=== PATIENT | male | born 1975 | race Caucasian/White ===

== ENCOUNTER → 2019-02-02 | Outpatient (CLI) | payer BC ==
--- NOTE | 2019-02-02 12:06 | CT ---
EXAMINATION TYPE: CT cervical spine wo con DATE OF EXAM: 02/02/2019 COMPARISON: NONE HISTORY: Neck and shoulder pain for 6+ months CT DLP: 690.1 mGycm. Automated Exposure Control for Dose Reduction was Utilized. TECHNIQUE: CT scan of the cervical spine is obtained without contrast, axial images are obtained, sa gittal and coronal reformatted images are also reviewed. FINDINGS: Cervical spine is visualized in its entirety from C1 through upper thoracic levels, demonst rates satisfactory alignment without evidence of acute fracture or dislocation. Small posterior disc osteophyte complexes are seen at C5-C6 and C6-C7. Disc bulge is present at C2-C3. Mild neural forami nal narrowing bilaterally at C3-C4 and C4-C5 secondary to uncovertebral hypertrophy. At C5-C6 there i s severe bilateral neural foraminal narrowing and mild spinal canal stenosis secondary to at least di sc bulge, posterior disc osteophyte complex, uncovertebral hypertrophy and facet arthropathy. Mild le ft neural foraminal narrowing at C6-C7 secondary to uncovertebral hypertrophy. Small broad-based disc bulge and possible central disc herniation creating mild spinal canal stenosis. Prevertebral soft ti ssue appears within normal limits. The C1-C2 articulation is within normal limits on the coronal nikki ges. Visualized lung apices are clear. IMPRESSION: 1. No acute fracture or malalignment evident in the cervical spine. 2. Multilevel degenerative disc disease of the cervical spine creating severe bilateral neural forami nal narrowing at C5-C6 and mild spinal canal stenosis at C5-C6 and C6-C7. Possible disc herniations a t these levels that would be better evaluated with MRI.
== END ==
LOC: RADCTMAIN 11:22
PROVIDERS: ATTEND General Practice
DX: M48.02 Spinal stenosis, cervical region (principal); M50.122 Cervical disc disorder at C5-C6 level with radiculopathy
CPT/HCPCS: 72125

== ENCOUNTER 2019-05-11 11:45 | Observation (INO) | payer BC ==
[2019-05-11] MEDS ORDERED: SODIUM CHLORIDE 0.9% 1,000 ML IV STA (12:25)
[2019-05-11] MEDS ORDERED: METOCLOPRAMIDE 5 MG/ML 2 ML VIAL IVP STA (12:25)
[2019-05-11] MEDS ORDERED: HYDROmorphone 1 MG/ML 1 ML SYRINGE IVP STA (12:26)
--- NOTE | 2019-05-11 12:29 | ED ---
General Adult HPI - General Chief complaint: Headache Stated complaint: Headache/Vomiting Time Seen by Provider: 05/11/19 11:51 Source: patient, RN/MD, RN notes reviewed Mode of arrival: ambulatory Limitations: no limitations - History of Present Illness Initial comments: Patient is a pleasant 43-year-old male presenting to the emergency Department with complaints of headache. Onset Of headaches was 2 and half to 3 weeks ago. Patient has been to the emergency department twice and had negative head CTs. Patient is also seen Dr. Coe. Patient has had Compazine and sumatriptan an occipital block. Patient still has symptoms. Dr. Coe did call and would like patient admitted with neurology and anesthesia consult. Patient does have history of previous shunts. Patient does have associated nausea and vomiting. Patient is tolerating oral intake at times and not at others. Patient has had weight loss secondary to that. Patient has had 2 previous headaches within the last year prior to the past few weeks. - Related Data Allergies Allergy/AdvReac Type Severity Reaction Status Date / Time No Known Allergies Allergy Verified 05/11/19 11:50 Review of Systems ROS Statement: Those systems with pertinent positive or pertinent negative responses have been documented in the HPI. ROS Other: All systems not noted in ROS Statement are negative. Constitutional: Denies: fever Eyes: Denies: eye pain ENT: Denies: ear pain Respiratory: Denies: cough Cardiovascular: Denies: chest pain Endocrine: Denies: fatigue Gastrointestinal: Reports: nausea, vomiting. Denies: abdominal pain Genitourinary: Denies: dysuria Musculoskeletal: Denies: back pain Skin: Denies: rash Neurological: Reports: headache. Denies: weakness, numbness, paresthesias, confusion Past Medical History History of Any Multi-Drug Resistant Organisms: None Reported Additional Past Surgical History / Comment(s): brain shunt Past Psychological History: No Psychological Hx Reported Smoking Status: Never smoker Past Alcohol Use History: None Reported Past Drug Use History: None Reported General Exam Limitations: no limitations General appearance: alert, in no apparent distress Head exam: Present: normocephalic Eye exam: Present: normal appearance, PERRL, EOMI. Absent: nystagmus ENT exam: Present: normal oropharynx Neck exam: Present: normal inspection Respiratory exam: Present: normal lung sounds bilaterally Cardiovascular Exam: Present: regular rate, normal rhythm GI/Abdominal exam: Present: soft. Absent: tenderness Extremities exam: Present: normal inspection Neurological exam: Present: alert, oriented X3, CN II-XII intact. Absent: motor sensory deficit Expanded Neurological exam: Present: protecting the airway Speech: Present: fluid speech Cranial nerves: EOM's Intact: Normal Cerebellar function: Finger to Nose: Normal Sensory exam: Upper Extremity Light Touch: Normal, Lower Extremity Light Touch: Normal Motor strength exam: RUE: 5, LUE: 5, RLE: 5, LLE: 5 Eye Response: (4) open spontaneously Motor Response: (6) obeys commands Verbal Response: (5) oriented Psychiatric exam: Present: normal affect, normal mood Skin exam: Present: normal color Course Vital Signs 05/11/19 11:48 Temperature 97.9 F Pulse Rate 105 H Respiratory 18 Rate Blood Pressure 148/97 O2 Sat by Pulse 99 Oximetry Medical Decision Making - Medical Decision Making Patient reevaluated and is somewhat improved following medications. Case discussed with julio Koo with [facility], who will admit for hospital call. - Lab Data Result diagrams: 05/11/19 12:47 05/11/19 13:29 Lab Results 05/11/19 05/11/19 05/11/19 Range/Units 12:47 12:47 13:29 WBC 11.7 H (3.8-10.6) k/uL RBC 5.92 H (4.30-5.90) m/uL Hgb 17.4 (13.0-17.5) gm/dL Hct 49.2 (39.0-53.0) % MCV 83.1 (80.0-100.0) fL MCH 29.4 (25.0-35.0) pg MCHC 35.3 (31.0-37.0) g/dL RDW 12.0 (11.5-15.5) % Plt Count 252 (150-450) k/uL Neutrophils % 77 % Lymphocytes % 16 % Monocytes % 6 % Eosinophils % 1 % Basophils % 0 % Neutrophils # 9.0 H (1.3-7.7) k/uL Lymphocytes # 1.8 (1.0-4.8) k/uL Monocytes # 0.7 (0-1.0) k/uL Eosinophils # 0.1 (0-0.7) k/uL Basophils # 0.1 (0-0.2) k/uL PT 10.8 (9.0-12.0) sec INR 1.1 (<1.2) APTT 24.9 (22.0-30.0) sec Sodium 136 L (137-145) mmol/L Potassium 4.0 (3.5-5.1) mmol/L Chloride 96 L (98-107) mmol/L Carbon Dioxide 27 (22-30) mmol/L Anion Gap 13 mmol/L BUN 17 (9-20) mg/dL Creatinine 1.00 (0.66-1.25) mg/dL Est GFR (CKD-EPI)AfAm >90 (>60 ml/min/1.73 sqM) Est GFR (CKD-EPI)NonAf >90 (>60 ml/min/1.73 sqM) Glucose 98 (74-99) mg/dL Calcium 9.8 (8.4-10.2) mg/dL - Radiology Data Radiology results: report reviewed (CTA without significant stenosis or aneurysm or dissection. Left temporal craniotomy defect with surgical catheter possibly arachnoid cyst. No hemorrhage.) Disposition Clinical Impression: Headache Disposition: ADMITTED IP TO THIS HOSP Is patient prescribed a controlled substance at d/c from ED?: No Referrals: None,Stated [Primary Care Provider] - 1-2 days Decision Time: 14:18
[2019-05-11 13:05] LABS: Basophils # (A) 0.1 k/uL (0-0.2); Basophils % (A) 0 %; Eosinophils # (A) 0.1 k/uL (0-0.7); Eosinophils % (A) 1 %; HCT 49.2 % (39.0-53.0); HGB 17.4 gm/dL (13.0-17.5); Lymphocytes # (A) 1.8 k/uL (1.0-4.8); Lymphocytes % (A) 16 %; MCH 29.4 pg (25.0-35.0); MCHC 35.3 g/dL (31.0-37.0); MCV 83.1 fL (80.0-100.0); Mean Platelet Volume 7.4; Monocytes # (A) 0.7 k/uL (0-1.0); Monocytes % (A) 6 %; Neutrophils % (A) 77 %; Platelet Count 252 k/uL (150-450); RBC 5.92 m/uL (4.30-5.90); WBC 11.7 k/uL (3.8-10.6)
[2019-05-11 13:13] LABS: INR 1.1 (<1.2); Partial Thromboplastin Time 24.9 sec (22.0-30.0); Prothrombin Time 10.8 sec (9.0-12.0)
[2019-05-11 13:44] LABS: African American GFR (CKD) >90 (>60 ml/min/1.73 sqM); Anion Gap 13 mmol/L; Blood Urea Nitrogen 17 mg/dL (9-20); Calcium 9.8 mg/dL (8.4-10.2); Carbon Dioxide 27 mmol/L (22-30); Chloride 96 mmol/L (98-107); Glucose 98 mg/dL (74-99); Non-African American GFR(CKD) >90 (>60 ml/min/1.73 sqM); Sodium 136 mmol/L (137-145)
--- NOTE | 2019-05-11 13:47 | CT ---
EXAMINATION TYPE: CT angio head neck DATE OF EXAM: 05/11/2019 HISTORY: Headache, dizziness, nausea, and vomiting COMPARISON: NONE CT DLP: 1608.9 mGycm. Automated Exposure Control for Dose Reduction was Utilized. TECHNIQUE: CT scan of the brain was performed without contrast. CTA scan of the head and neck is per formed with IV Contrast, patient injected with 65 mL of Isovue 370, axial images are obtained, dotson l and sagittal reformatted images are reviewed. Three-D reconstructed images are created on an [employer] workstation and reviewed. FINDINGS: FINDINGS: Carotid/Vascular Structures: No hemodynamically significant stenosis is seen of the common carotid ar teries, portable, cervical portions of the internal carotid arteries, or vertebral arteries. The left vertebral artery is slightly dominant. [place] of [place] appears intact although the left posterior c ommunicating artery is diminutive. No sizable intracranial aneurysm or occlusion is seen. No hemodyna mically significant stenosis is identified. Brain: There is a left temporal craniotomy site with surgical catheter terminating in a CSF attenuate d extra-axial space of the left middle cranial fossa, possible arachnoid cyst. No acute intracranial hemorrhage or midline shift is seen. Lara-white matter interface is maintained. Ventricular system de monstrates no evidence of hydrocephalus. Paranasal sinuses and mastoid air cells are well aerated oth er than a small left maxillary 7 mm mucosal retention cyst versus polyp. Calvarium is intact. Other: The lung apices are well aerated. There is mild multilevel degenerative change of the cervical spine with posterior disc osteophyte complexes at C5-C6 and C6-C7. IMPRESSION: 1. No hemodynamically significant stenosis, sizable intracranial aneurysm, or dissection in the major arterial vasculature of the head or neck. 2. Left temporal craniotomy defect with surgical catheter terminating in the left middle cranial li a and a CSF attenuated area, possible arachnoid cyst. 3. No acute intracranial hemorrhage or midline shift. No hydrocephalus.
[2019-05-11] MEDS ORDERED: NALOXONE 0.4 MG/ML 1 ML VIAL IV PRN (14:18)
[2019-05-11] MEDS: HYDROmorphone 1 MG/ML 1 ML SYRINGE IVP PRN ×2 (17:26→20:55)
--- NOTE | 2019-05-11 17:32 | P.CNNES ---
History of Present Illness Consult date: 05/11/19 Requesting physician: Tyler Suárez Reason for Consult: Cephalgia History of Present Illness: Patient is a 43-year-old male, came to the hospital for new onset headaches. Patient states that about a 2-1/2 weeks ago he developed sudden onset of headache, pointing to the occipital notch in the center and somewhat on the left and it feels as if someone is pushing his head inside with some pressure behind the eyes. The headache mainly is centered in the occipital region. The headache is present almost all the time. If he lays down, it is much more tolerable, rates 5-6/10, but does not go away. When he is sitting, it goes up to 8-9/10 and on standing up it goes right away at 10/10, it starts feeling nauseous and then vomits if he continues to stand. He has been in the bed, not able to get up or go to work. He had about couple hours in a day that he may not have headache, only while laying down. Patient states that when he wakes up, the headache is 7-8/10, he rolls over in the bed, tosses and turns. However if he gets up, then it gets to 10/10 and he starts vomiting. He often wakes up from the headache. He is not able to sleep because of the headache as well. Patient states that he did have some fever in the beginning but that has completely went away. Denies any focal symptoms. Denies any head or neck trauma in the last 6 months. Denies any nasal discharge. Patient states that he had history of a shunt placed at age 9 for progressively growing left sided arachnoid cyst. He had multiple surgeries performed at that time. However since then he has been stable, not requiring any further revision of the shunts. Patient denies any migraines or any regular headaches otherwise. Patient states that in September 2018, he had an episode of sudden onset of headache while standing up, that he had to lay down and the symptoms resolved and couple hours. He had a similar sudden onset headache again about 1-1/2-2 months ago, resolved after he laid for about couple hours. This time that the symptoms started 2-1/2 weeks ago is not letting up. Patient states that he had undergone epidural injection in the cervical spine about a month ago. (It is not very clear if it was an occipital nerve block or epidural, as patient does not know exact name for it). Patient follows up with Dr. Coe. He had undergone occipital nerve blocks. Patient has tried Imitrex, which did not help. Patient had undergone CTA of head and neck showed no hemodynamically significant stenosis, sizable intracranial aneurysm or dissection of the major arterial vasculature of the head and neck. Left temporal craniotomy defect with surgical Hit her terminating in the left middle cranial fossa and a CSF attenuated area, possible an arachnoid cyst. No acute intracranial hemorrhage, or midline shift. No hydrocephalus. Patient's previous cervical spine CT from 02/02/2019 showed no fracture or malalignment. Multilevel degenerative disc disease of the cervical spine creating severe bilateral neural foraminal narrowing at C5 6 and mild spinal canal stenosis at C5 6 and C6 7. Possible disc herniations at these levels that would be better evaluated with MRI. Review of Systems As per HPI. All other 14 point of review of systems unremarkable. 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 History of Any Multi-Drug Resistant Organisms: None Reported Past Surgical History: Orthopedic Surgery Additional Past Surgical History / Comment(s): brain shunt, plate in left lower leg Past Anesthesia/Blood Transfusion Reactions: Motion Sickness Past Psychological History: No Psychological Hx Reported Smoking Status: Former smoker Past Alcohol Use History: None Reported Past Drug Use History: None Reported - Past Family History Father Additional Family Medical History / Comment(s): heart issues, neck and back is sues Medications and Allergies Home Medications Medication Instructions Recorded Confirmed Type Famotidine [Pepcid] 20 mg PO BID 05/11/19 05/11/19 History Ondansetron Odt [Zofran Odt] 4 mg PO Q12HR PRN 05/11/19 05/11/19 History Pantoprazole Sodium [Protonix] 40 mg PO DAILY 05/11/19 05/11/19 History Prochlorperazine Suppository 25 mg RECTAL BID PRN 05/11/19 05/11/19 History [Compazine] SUMAtriptan SUCCINATE [Imitrex] 50 mg PO DAILY PRN 05/11/19 05/11/19 History Allergies Allergy/AdvReac Type Severity Reaction Status Date / Time No Known Allergies Allergy Verified 05/11/19 14:37 Physical Examination - Vital Signs Vital Signs: Vital Signs Temp Pulse Pulse Resp BP BP Pulse Ox 05/11/19 14:56 97.4 F L 62 18 165/96 96 05/11/19 14:21 69 18 119/76 98 05/11/19 11:48 97.9 F 105 H 18 148/97 99 Intake and Output 05/11/19 05/11/19 05/11/19 06:59 14:59 22:59 Other: Voiding Method Toilet Weight 83.915 kg 83.915 kg On examination patient is a middle aged male, in no distress. Patient is alert and awake, fully oriented to time place and person. Speech and language functions are normal. Attention and concentration fund of knowledge is adequate. On cranial examination pupils are round and reactive to light, visual redman are full on confrontation, extraocular muscles are intact with no nystagmus. Face is symmetric, tongue protrudes to the midline. Palatal elevation sensation normal. On muscle strength testing there is no pronator drift and the strength is normal in arms and legs distally and proximally. Reflexes are 1+ and plantars downgoing. Sensory touch is equal. No ataxia for [id number] testing. Tone and bulk of muscles normal. Gait deferred. No carotid bruit or murmur, peripheral pulses present. Results - Laboratory Findings CBC and BMP: 05/11/19 12:47 05/11/19 13:29 Abnormal Lab Findings: Abnormal Labs 05/11/19 05/11/19 12:47 13:29 WBC 11.7 H RBC 5.92 H Neutrophils # 9.0 H Sodium 136 L Chloride 96 L Assessment and Plan Assessment: * 43-year-old male admitted with new onset of occipital headache, which has some positional component, as it gets much worse while sitting and particularly standing up. This is suggestive of possible intracranial hypotension due to CSF leak. However patients with intracranial hypotension due to CSF leak usually have no headache while laying down or upon waking up in the morning, whereas the patient does have headache all the time, although tolerable when laying down. * History of ventriculoperitoneal shunting at age 9 for progressively growing arachnoid cyst. Plan: * We will check an MRI of the brain with and without contrast to evaluate for pachymeningeal enhancement, that is typically seen with intracranial hypotension, rule out Chiari malformation. If no obvious answers identified, then patient will need nuclear medicine cisternography to evaluate for possible CSF leak. * We will give Fioricet as needed for headaches for now.
--- NOTE | 2019-05-11 18:40 | P.HPIM ---
History of Present Illness H&P Date: 05/11/19 Chief Complaint: headache Patient is a 43-year-old male with a past medical history of GERD, cerebral cysts with shunting at age 9, arthritis, degenerative disc disease, and left shoulder arthritis who presented to the hospital at the direction of Dr. Coe for intractable headache of 2.5 weeks' duration. In the emergency department he underwent an extensive evaluation. On arrival he was found be tachycardic with a pulse of 105. Laboratory analysis showed mildly elevated white blood cell count 11.7, sodium 136 with routine lab tests are otherwise normal. He underwent a CT angiogram of the brain which showed no dynamically significant stenosis or sizable intracranial aneurysms, left temporal craniotomy defect with surgical catheter in the left middle cranial fossa with CSF attenuated area possible arachnoid cyst. Cervical spines CT showed multilevel degenerative disc disease creating severe bilateral neural foraminal narrowing at C5 6 and mild spinal central canal stenosis with C5 6 and C6 7 and possible disc herniations. In the ER he received a dose of Dilaudid and Reglan. He had immediate improvement in his symptoms. He was placed in observation. Neurology was consulted. Patient seen and examined at bedside. He reports that he is started noticing a headache approximately 2-1/2 weeks ago. It was sudden onset associated with vomiting. Initially this occurred at work. He then went home and slept in the headache felt better but after waking the next morning it recurred within 2-3 hours. He states that his, headache has been constant but waxing and waning in severity since that time. It is worsened by sitting and extremely worsened by standing. When he stands up he has significant pain in the right posterior neck area that wraps up around to the top of his head. It is better when he lays flat. He states he has not been able to tolerate much oral intake and has been persistently vomiting. He denies any changes in vision, scotomas, difficulty with loud noises. He does report being off balance when he tries to walk. He denies any focal neuro deficits such as weakness or numbness and tingling. He does report that approximately one month ago he had steroid injections into his neck. He has been seeing Dr. Coe over the last 2 and half weeks. He did undergo an injection in 7 different spots in his neck. He reports it did not help his pain in his pain actually got worse after that. He reports that 10 days ago he had intermittent fevers for approximately 3 days 101-102. He had been taking [place] which was helping somewhat but he ran out of that recently. He has 2 seizures related to alcohol withdrawal the past but has been sober for the last 11 years. He reports that at age 9 who was started on have off balance episodes when playing hockey and progressively worsening headaches. At that point in time his son have an arachnoid cyst and subsequently underwent placement of this struck. He has not had any neurologic follow-up since age 17 up until the last several weeks. Patient has been unable to work from headache started. Review of Systems Pertinent positives and negatives as discussed in HPI, a complete review of systems was performed and all other systems are negative. 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 History of Any Multi-Drug Resistant Organisms: None Reported Past Surgical History: Orthopedic Surgery Additional Past Surgical History / Comment(s): brain shunt, plate in left lower leg secondary to fracture Past Anesthesia/Blood Transfusion Reactions: Motion Sickness Past Psychological History: No Psychological Hx Reported Smoking Status: Former smoker Past Alcohol Use History: None Reported Past Drug Use History: None Reported Additional History: Works at a [employer] in [place], lives with his dad, no assistive devices - Past Family History Father Additional Family Medical History / Comment(s): heart issues, neck and back issues Medications and Allergies Home Medications Medication Instructions Recorded Confirmed Type Famotidine [Pepcid] 20 mg PO BID 05/11/19 05/11/19 History Ondansetron Odt [Zofran Odt] 4 mg PO Q12HR PRN 05/11/19 05/11/19 History Pantoprazole Sodium [Protonix] 40 mg PO DAILY 05/11/19 05/11/19 History Prochlorperazine Suppository 25 mg RECTAL BID PRN 05/11/19 05/11/19 History [Compazine] SUMAtriptan SUCCINATE [Imitrex] 50 mg PO DAILY PRN 05/11/19 05/11/19 History Allergies Allergy/AdvReac Type Severity Reaction Status Date / Time No Known Allergies Allergy Verified 05/11/19 14:37 Physical Exam Osteopathic Statement: *. No significant issues noted on an osteopathic structural exam other than those noted in the History and Physical/Consult. Vitals: Vital Signs Temp Pulse Pulse Resp BP BP Pulse Ox 05/11/19 14:56 97.4 F L 62 18 165/96 96 05/11/19 14:21 69 18 119/76 98 05/11/19 11:48 97.9 F 105 H 18 148/97 99 Intake and Output 05/11/19 05/11/19 05/11/19 06:59 14:59 22:59 Intake Total 200 Balance 200 Intake: Oral 200 Other: Voiding Method Toilet Weight 83.915 kg 83.915 kg General: non toxic, no distress, appears at stated age, normal weight Derm: no unusual rashes/lesions no unusual ecchymoses, warm, dry Head: atraumatic, normocephalic, symmetric Eyes: EOMI, no lid lag, anicteric sclera, pupils equal round reactive to light ENT: Nose and ears atraumatic, no thrush, no pharyngeal erythema Neck: No thyromegaly, no cervical lymphadenopathy, trachea midline, supple Mouth: no lip lesion, mucus membranes moist Cardiovascular: S1S2 reg, no murmur, positive posterior tibial pulse bilateral, no edema, capillary refill less than 2 seconds Lungs: CTA bilateral, no rhonchi, no rales , no accessory muscle use Abdominal: soft, nontender to palpation, no guarding, no appreciable organomegaly, normal bowel sounds Ext: no gross muscle atrophy, muscle strength 5 out of 5 in all 4 extremities grossly, no contractures, Neuro: CN II-XI grossly intact, light touch intact all 4 extremities, finger to nose within normal limits, Psych: Alert, oriented, appropriate affect Results CBC & Chem 7: 05/11/19 12:47 05/11/19 13:29 Labs: Abnormal Lab Results - Last 24 Hours (Table) 05/11/19 05/11/19 Range/Units 12:47 13:29 WBC 11.7 H (3.8-10.6) k/uL RBC 5.92 H (4.30-5.90) m/uL Neutrophils # 9.0 H (1.3-7.7) k/uL Sodium 136 L (137-145) mmol/L Chloride 96 L (98-107) mmol/L CT Scan - head: report reviewed Thrombosis Risk Factor Assmnt - DVT/VTE Prophylaxis DVT/VTE Prophylaxis: Mechanical Prophylaxis ordered - Choose All That Apply Any of the Below Risk Factors Present?: Yes Each Factor Represents 1 point: Age 41-60 years, Obesity (BMI >25) Other Risk Factors: No Other congenital or acquired thrombophilia - If yes, enter type in comment: No Thrombosis Risk Factor Assessment Total Risk Factor Score: 2 Thrombosis Risk Factor Assessment Level: Low Risk Assessment and Plan Assessment: Intractable headache in the occipital region -Neurology recommendations appreciated -MRI if negative will need further studies for possible CSF leak -Request records for her shunt compatibility with MRI. I doubt we will be able this as it is over 30 years old but we'll attempt to [facility] -No improvement with Imitrex in the past -Dilaudid and Fioricet as needed for pain -Antiemetics -Anesthesia consulted for possible cervical patch Leukocytosis -Suspect reactive -Repeat CBC in a.m. -Monitor for fevers GERD -PPI and H2 deandre. Patient uses both at home The patient is placed in observation with an anticipated less than 2 midnight stay for evaluation of intractable headache Surrogate decision-maker: Father, Saulo Preston CODE STATUS: Full DVT prophylaxis: SCDs Discussed with: Patient, nursing Anticipated discharge date: 1-[address]: Home A total of 35 minutes was spent on the care of this complex patient more than 50% of the time was spent in counseling and care coordination.
[2019-05-11] MEDS ORDERED: ACETAMINOPHEN TAB 325 MG TAB PO PRN (18:55)
[2019-05-11] MEDS: SODIUM CHLORIDE 0.9% 1,000 ML IV SCH (19:33)
[2019-05-11] MEDS: FAMOTIDINE 20 MG TAB PO SCH (20:53)
[2019-05-12] MEDS: SODIUM CHLORIDE 0.9% 1,000 ML IV SCH ×3 (02:27→20:24)
[2019-05-12] MEDS: HYDROmorphone 1 MG/ML 1 ML SYRINGE IVP PRN ×6 (02:31→20:32)
[2019-05-12] MEDS: ONDANSETRON 4 MG/2 ML VIAL IVP PRN ×2 (07:24→15:11)
[2019-05-12] MEDS: FAMOTIDINE 20 MG TAB PO SCH (07:25)
[2019-05-12] MEDS ORDERED: PANTOPRAZOLE 40 MG TABLET PO SCH (09:00)
[2019-05-12] MEDS ORDERED: METOCLOPRAMIDE 5 MG/ML 2 ML VIAL IVP STA (13:49)
--- NOTE | 2019-05-12 17:30 | P.PN ---
Subjective Progress Note Date: 05/12/19 Principal diagnosis: Headaches Patient still having severe headaches especially located in the occipital area. He is nauseated and having vomiting at times. No fevers or chills. No blurry vision, no focal numbness or weakness. No slurred speech. Objective - Vital Signs Vital signs: Vital Signs Temp 97.3 F L 05/12/19 16:00 Pulse 70 05/12/19 16:00 Resp 17 05/12/19 16:00 BP 138/72 05/12/19 16:00 Pulse Ox 100 05/12/19 16:00 Intake & Output 05/11/19 05/12/19 05/12/19 18:59 06:59 18:59 Intake Total 200 1170 400 Balance 200 1170 400 Weight 83.915 kg Intake: Intake, IV Titration 1170 Amount Sodium Chloride 0.9% 1, 1170 000 ml @ 130 mls/hr IV . Q7H42M [facility] Rx#:[id number] Oral 200 400 Other: Voiding Method Toilet Toilet Toilet # Voids 2 1 - Exam Constitutional: No acute distress, conversant, pleasant Eyes:Anicteric sclerae, moist conjunctiva, no lid-lag, PERRLA, ENMT: Oropharynx clear, no erythema, exudates Neck: Supple, FROM, no masses, or JVD, No carotid bruits, No thyromegaly Lungs: Clear to auscultation, Clear to percussion, Normal respiratory effort, no accessory muscle use Cardiovascular: Heart regular in rate and rhythm, No murmurs, gallops, or rubs, No peripheral edema Abdominal: Soft, Nontender, no guarding, rebound or rigidity, Normoactive bowel sounds, No hepatomegaly, No splenomegaly, No palpable mass Skin: Normal temperature, tone, texture, turgor, no induration, No subcutaneous nodules, No rash, lesions, No ulcers Extremities: No digital cyanosis, No clubbing, Pedal pulses intact and symmetrical, Radial pulses intact and symmetrical, No calf tenderness Psychiatric: Alert and oriented to person, place and time, appropriate affect, intact judgement Neuro: Muscles Strength 5/5 in all 4 extremities, Sensation to light touch grossly present throughout, Cranial nerves II-XII grossly intact, no focal sensory deficits - Labs CBC & Chem 7: 05/11/19 12:47 05/11/19 13:29 Labs: Microbiology - Last 24 Hours (Table) 05/11/19 12:47 Blood Culture - Preliminary Blood No Growth after 24 hours Assessment and Plan Plan: Intractable headache in the occipital region -D/W neurology dr. Marquis -Can't do MRI because the shunt material is currently unknown, will send stat head CT -Also due to inability to perform MRI patient will need to have cisternogram to rule out CSF leak, headache cannot be explained. Due to that patient will be transferred to [facility] for further evaluation. -Neuro also recommending LP, r/o infection, will order -No improvement with Imitrex in the past -Dilaudid and Fioricet as needed for pain -Antiemetics -Anesthesia consulted for possible cervical patch Leukocytosis -Suspect reactive -Repeat CBC in a.m. -Monitor for fevers GERD -PPI and H2 deandre.
[2019-05-12] MEDS ORDERED: TRIMETHOBENZAMIDE 100 MG/ML 2 ML VIAL IM STA (17:31)
--- NOTE | 2019-05-12 18:04 | CT ---
EXAMINATION TYPE: CT brain wo con DATE OF EXAM: 05/12/2019 COMPARISON: None HISTORY: Headaches with nausea. CT DLP: 1107.4 mGycm Automated exposure control for dose reduction was used. Multiple axial sections were obtained of the brain without contrast. Ventricles appear normal. There is no mass effect nor midline shift. There is no sign of intracranial hemorrhage. The calvarium is intact. There is no evidence of cerebral edema. There is a left side te mporal drainage catheter with the tip in the anterior aspect of the left middle cranial fossa. There is slight widening of the subdural space in the left anterior middle cranial fossa. There is left old temporal craniotomy defect. IMPRESSION: Old left side temporal anterior encephalomalacia or arachnoid cyst. No acute intracranial abnormality . Previous surgery.
[2019-05-12] MEDS ORDERED: BUTALB/APAP/CAFF 50-325-40MG TAB PO PRN (18:24)
--- NOTE | 2019-05-12 18:26 | P.PN ---
Subjective Progress Note Date: 05/12/19 Patient continues to feel very sick, nauseated, vomiting, nothing able to keep in his stomach. Even then he is retching. States "I feel like I am dying". Patient is getting 0.9 normal saline. Patient states his headache at present is 5/10 after he receives the medication, otherwise it goes up to 10/10. Feels very sick. The headache continues to be in the occipital area bilaterally. Not in the neck. Denies significant photophobia or phonophobia. Objective - Vital Signs Vital signs: Vital Signs Temp 97.3 F L 05/12/19 16:00 Pulse 70 05/12/19 16:00 Resp 17 05/12/19 16:00 BP 138/72 05/12/19 16:00 Pulse Ox 100 05/12/19 16:00 Intake & Output 05/11/19 05/12/19 05/12/19 18:59 06:59 18:59 Intake Total 200 1170 400 Balance 200 1170 400 Weight 83.915 kg Intake: Intake, IV Titration 1170 Amount Sodium Chloride 0.9% 1, 1170 000 ml @ 130 mls/hr IV . Q7H42M [facility] Rx#:[id number] Oral 200 400 Other: Voiding Method Toilet Toilet Toilet # Voids 2 1 - Exam Patient's speech and language functions are normal. No aphasia or dysarthria. Pupils are round and reacting, visual redman are full. Extraocular muscles are intact. Face is symmetric. Muscle strength is normal in the arms and legs. While patient was being prepared to be transferred to [facility], patient got up and appeared very steady. He did put on his T shirt, and did not lose balance. Patient was strongly recommended to stay in the bed, because of dehydration, could pass out and faint. Per nursing report, he is getting normal saline therefore should not be dehydrated. - Labs CBC & Chem 7: 05/11/19 12:47 05/11/19 13:29 Labs: Microbiology - Last 24 Hours (Table) 05/11/19 12:47 Blood Culture - Preliminary Blood No Growth after 24 hours Assessment and Plan Assessment: * 43-year-old male admitted with new onset of occipital headache, which has some positional component, as it gets much worse while sitting and particularly standing up. This is suggestive of possible intracranial hypotension due to CSF leak. However patients with intracranial hypotension due to CSF leak usually have no headache while laying down or upon waking up in the morning, whereas the patient does have headache all the time, although tolerable when laying down. * History of ventriculoperitoneal shunting at age 9 for progressively growing arachnoid cyst. Plan: * MRI of the brain with and without contrast could not be performed, as he has a shunt in the brain, and he was told that he can never have MRI. He could not get clearance for MRI due to presence of shunt at age 9. * Stat computed tomography scan of head was done to rule out any cerebellar hemorrhage/CVA, which came back negative. Again showed old left-sided temporal anterior encephalomalacia related right cyst. No acute process. Patient's cerebral venous sinuses appears patent involving the superior sagittal sinus, and transverse sinuses bilaterally. * Patient cannot have cisternography to evaluate for CSF leak until 05/25/2019 at [facility]. * Because of persistent headache, we discussed about lumbar puncture to rule out meningitis. However patient has been accepted to [facility] and a bed is available. Patient will be transferred to [facility] for further management. Patient has to be transferred in ambulance, not in his own car for safety reasons. * We will give Fioricet as needed for headaches for now.
--- NOTE | 2019-05-12 18:57 | P.DS ---
Providers Date of admission: 05/11/19 14:18 Expected date of discharge: 05/12/19 Attending physician: Kelsy Gamino MD Consults: 05/11/19 14:19 Consult Physician Urgent Consulting Provider: Moraima Marquis Consult Reason/Comments: Cephalgia Do you want consulting provider notified?: Yes 05/11/19 14:21 Consult to Anesthesia Routine Consulting Provider: Anesthesia,Services Consult Reason/Comments: Cephalgia, possible cervical patch Primary care physician: Stated None Hospital Course: 43-year-old male with a past medical history of GERD, cerebral cysts with shunting at age 9, arthritis, degenerative disc disease, and left shoulder arthritis who presented to the hospital at the direction of Dr. Coe for intractable headache of 2.5 weeks' duration. He started noticing a headache approximately 2-1/2 weeks ago. It was sudden onset associated with vomiting. Initially this occurred at work. He then went home and slept in the headache felt better but after waking the next morning it recurred within 2-3 hours. He states that his, headache has been constant but waxing and waning in severity since that time. It is worsened by sitting and extremely worsened by standing. When he stands up he has significant pain in the right posterior neck area that wraps up around to the top of his head. It is better when he lays flat. He states he has not been able to tolerate much oral intake and has been persistently vomiting. He denies any changes in vision, scotomas, difficulty with loud noises. He does report being off balance when he tries to walk. He denies any focal neuro deficits such as weakness or numbness and tingling. He does report that approximately one month ago he had steroid injections into his neck. He has been seeing Dr. Coe over the last 2 and half weeks. He did undergo an injection in 7 different spots in his neck. He reports it did not help his pain in his pain actually got worse after that. He reports that 10 days ago he had intermittent fevers for approximately 3 days 101-102. He had been taking [place] which was helping somewhat but he ran out of that recently. He reports that at age 9 who was started on have off balance episodes when playing hockey and progressively worsening headaches. At that point in time he underwent shunt placement. He has not had any neurologic follow-up since age 17. In the emergency department he underwent an extensive evaluation. On arrival he was found be tachycardic with a pulse of 105. Laboratory analysis showed mildly elevated white blood cell count 11.7, sodium 136 with routine lab tests are otherwise normal. He underwent a CT angiogram of the brain which showed no dynamically significant stenosis or sizable intracranial aneurysms, left temporal craniotomy defect with surgical catheter in the left middle cranial fossa with CSF attenuated area possible arachnoid cyst. Cervical spines CT showed multilevel degenerative disc disease creating severe bilateral neural foraminal narrowing at C5 6 and mild spinal central canal stenosis with C5 6 and C6 7 and possible disc herniations. Patient was seen by neurology who thought that he might have CSF leak due to worsening of the headaches with sitting or standing position and improvement with laying down. Intracranial bleeding was also considered in the differential. Because of that he had a computed tomography scan which was negative. Patient could not undergo: MRI of the brain due to inability to verify the shunt material. [facility] he had it done did not keep records from 30 years ago. Neurology recommended and cisternogram to be done but this could not be scheduled in [facility] until the end of this month. Patient's headache was not tolerable and he could not wait that long and due to that he will be transferred to [facility] for further evaluation and management. Patient will also likely require an LP to rule out xanthochromia and infection. Case was discussed with neurology at and patient was accepted for transfer. Plan - Discharge Summary Discharge Rx Participant: Yes New Discharge Prescriptions: Continue SUMAtriptan SUCCINATE [Imitrex] 50 mg PO DAILY PRN PRN Reason: Migraine Headache Prochlorperazine Suppository [Compazine] 25 mg RECTAL BID PRN PRN Reason: Nausea Pantoprazole Sodium [Protonix] 40 mg PO DAILY Ondansetron Odt [Zofran ODT] 4 mg PO Q12HR PRN PRN Reason: Nausea Famotidine [Pepcid] 20 mg PO BID Discharge Medication List Famotidine [Pepcid] 20 mg PO BID 05/11/19 [History] Ondansetron Odt [Zofran ODT] 4 mg PO Q12HR PRN 05/11/19 [History] Pantoprazole Sodium [Protonix] 40 mg PO DAILY 05/11/19 [History] Prochlorperazine Suppository [Compazine] 25 mg RECTAL BID PRN 05/11/19 [History] SUMAtriptan SUCCINATE [Imitrex] 50 mg PO DAILY PRN 05/11/19 [History] Follow up Appointment(s)/Referral(s): None,Stated [Primary Care Provider] - 1-2 days Patient Instructions/Handouts: Acute Headache (DC)
[2019-05-12 20:43] VITALS: BP 129/77; PULSE 69; RESP 18; TEMP 97.6
== END 2019-05-12 21:00 ==
LOC: EC 11:45 → 1SOBS 14:18
PROVIDERS: ADMIT Family Medicine; ATTEND Family Medicine
DX: R51 Headache (principal); M48.02 Spinal stenosis, cervical region; M50.322 Other cervical disc degeneration at C5-C6 level; G93.0 Cerebral cysts; Z98.2 Presence of cerebrospinal fluid drainage device; J45.909 Unspecified asthma, uncomplicated; M19.012 Primary osteoarthritis, left shoulder; Z87.891 Personal history of nicotine dependence; M19.90 Unspecified osteoarthritis, unspecified site; K21.9 Gastro-esophageal reflux disease without esophagitis; D72.829 Elevated white blood cell count, unspecified; R00.0 Tachycardia, unspecified; Z79.899 Other long term (current) drug therapy
CPT/HCPCS: 96361 ×3; 96372; 96375 ×2; 96376 ×2; 96374; 99285; 36415; 80048; 85025; 85610; 85730; 87040; 70496; 70450; 70498; G0378 ×2; J2765 ×2; J3250; J2405; J1170 ×2; Q9967

== ENCOUNTER 2019-05-15 17:56 | Observation (INO) | payer BC ==
[2019-05-15] MEDS ORDERED: diphenhydrAMINE 50 MG/ML 1 ML VIAL IVP STA (18:28)
[2019-05-15] MEDS ORDERED: METOCLOPRAMIDE 5 MG/ML 2 ML VIAL IVP STA ×2 (18:28→19:38)
[2019-05-15] MEDS ORDERED: SODIUM CHLORIDE 0.9% 1,000 ML IV STA (18:28)
[2019-05-15] MEDS ORDERED: HYDROmorphone 1 MG/ML 1 ML SYRINGE IVP STA (18:29)
--- NOTE | 2019-05-15 18:56 | ED ---
General Adult HPI - General Chief complaint: Headache Stated complaint: recheck - vomiting Time Seen by Provider: 05/15/19 18:05 Source: patient, RN notes reviewed, old records reviewed Mode of arrival: wheelchair Limitations: no limitations - History of Present Illness Initial comments: 42-year-old male patient presents to ED for chief complaint headache. Patient for these had 3 weeks of headache. Patient was admitted to this hospital on 05/10 for intractable headache. At that time CT brain CT angiography were obtained and were unremarkable. Patient does have history of a craniotomy and shunt placement secondary subarachnoid cyst and he was 9. He has not had neurology follow-up since age of 17. Patient did have relatively recent steroid injections in his back due to chronic back pain. Patient was transferred to [facility] on 04/13. [facility] patient reportedly had a blood patch performed. Patient poorly he is discharged today with a headache. Patient reports that since he has been home approximately noon he has been having nausea vomiting intractable headache which she describes as generalized. Patient reports headache has not resolved within the last 3 weeks. Patient does report that the headache is positional nature feels better while laying down and gets worse with standing up. Pt states that the headache he is experiencing today is not changed from prior. Patient reports he has nausea and vomiting. Patient denies any fevers cough exposure to coronavirus that he knows of. Denies any other complaints at this time. Systemic: Pt denies fatigue, fever/chills, rash. Pt denies weakness, night sweats, weight loss. Neuro: Pt denies visual disturbances, syncope or pre-syncope. HEENT: Pt denies ocular discharge or irritation, otalgia, rhinorrhea, pharyngitis or notable lymphadenopathy. Cardiopulmonary: Pt denies chest pain, SOB, heart palpitations, dyspnea on exertion. Abdominal/GI: Pt denies abdominal pain, n/v/d. : Pt denies dysuria, burning w/ urination, frequency/urgency. Denies new onset urinary or bowel incontinence. MSK: Pt denies myalgia, loss of strength or function in extremities. Neuro: Pt denies new onset weakness, paresthesias. - Related Data Home Medications Medication Instructions Recorded Confirmed Famotidine [Pepcid] 20 mg PO BID 05/11/19 05/11/19 Ondansetron Odt [Zofran ODT] 4 mg PO Q12HR PRN 05/11/19 05/11/19 Pantoprazole Sodium [Protonix] 40 mg PO DAILY 05/11/19 05/11/19 Prochlorperazine Suppository 25 mg RECTAL BID PRN 05/11/19 05/11/19 [Compazine] SUMAtriptan SUCCINATE [Imitrex] 50 mg PO DAILY PRN 05/11/19 05/11/19 Allergies Allergy/AdvReac Type Severity Reaction Status Date / Time No Known Allergies Allergy Verified 05/15/19 18:00 Review of Systems ROS Statement: Those systems with pertinent positive or pertinent negative responses have been documented in the HPI. ROS Other: All systems not noted in ROS Statement are negative. 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 History of Any Multi-Drug Resistant Organisms: None Reported Past Surgical History: Orthopedic Surgery Additional Past Surgical History / Comment(s): brain shunt, plate in left lower leg secondary to fracture Past Anesthesia/Blood Transfusion Reactions: Motion Sickness Past Psychological History: No Psychological Hx Reported Smoking Status: Former smoker Past Alcohol Use History: None Reported Past Drug Use History: None Reported - Past Family History Father Additional Family Medical History / Comment(s): heart issues, neck and back issues General Exam - General Exam Comments Initial Comments: Constitutional: NAD, AOX3, Pt has pleasant affect. HEENT: NC/AT, trachea midline, neck supple, no lymphadenopathy. Posterior pharynx non erythematous, without exudates. External ears appear normal, without discharge. Mucous membranes moist. Eyes PERRLA, EOM intact. There is no scleral icterus. No pallor noted. Cardiopulmonary: RRR, no murmurs, rubs or gallops, no JVD noted. Lungs CTAB in anterior and posterior redman. No peripheral edema. Abdominal exam: Abdomen soft and non-distended. Abdomen non-tender to palpation in all 4 quadrants. Bowel sounds active in LLQ. No hepatosplenomegaly. No ecchymosis Neuro: CN II-XII intact. No nuchal rigidity. No raccon eyes, no plasencia sign, no hemotympanum. No cervical spinal tenderness. NIH 0. Kernigs and Brudzinski negative MSK: No posterior calf tenderness bilaterally, homans sign negative bilaterally. Posterior tibialis and radial pulse +2 bilaterally. Sensation intact in upper and lower extremities. Full active ROM in upper and lower extremities, 5/5 stregnth. Limitations: no limitations Course Vital Signs 05/15/19 05/15/19 17:58 21:14 Temperature 97.5 F L 97.8 F Pulse Rate 87 57 L Respiratory 18 18 Rate Blood Pressure 143/94 142/88 O2 Sat by Pulse 98 99 Oximetry Medical Decision Making - Medical Decision Making 42-year-old male patient presents to ED for chief complaint headache. Patient for these had 3 weeks of headache. Patient was admitted to this hospital on 05/10 for intractable headache. At that time CT brain CT angiography were obtained and were unremarkable. Patient does have history of a craniotomy and shunt placement secondary subarachnoid cyst and he was 9. He has not had neurology follow-up since age of 17. Patient did have relatively recent steroid injections in his back due to chronic back pain. Patient was transferred to [facility] on 04/13. [facility] patient reportedly had a blood patch performed. Patient poorly he is discharged today with a headache. Patient reports that since he has been home approximately noon he has been having nausea vomiting intractable headache which she describes as generalized. Patient reports headache has not resolved within the last 3 weeks. Patient does report that the headache is positional nature feels better while laying down and gets worse with standing up. Pt states that the headache he is experiencing today is not changed from prior. Patient reports he has nausea and vomiting. Patient denies any fevers cough exposure to coronavirus that he knows of. Denies any other complaints at this time. Vital signs are stable, afebrile. Physical exam did not display acute pathology. Neurologic exam is intact. NIH is 0. Multiple repeat neurologic exams were performed and are benign. Meningeal signs are negative. Laboratory investigations revealed leukocytosis of 14.8, mild hyperbilirubinemia 1.5. Mild hypocalcemia 10.6. Patient was administered 1.5 L of fluid. Multiple analgesia and antiemetics administered. Patient headache continues with intractable nausea and vomiting. Case was discussed with [facility] Dr. Evangelista who recommended that we test neurology as well as neurosurgery did see patient and there was no surgical intervention recommended. Case was discussed with our neurologist will accept patient with consultation admission. Patient admitted to some physician group. Case discussed in depth with Dr. Park. - Lab Data Result diagrams: 05/15/19 19:00 05/15/19 19:00 Lab Results 05/15/19 05/15/19 05/15/19 Range/Units 19:00 19:00 19:00 WBC 14.8 H (3.8-10.6) k/uL RBC 6.26 H (4.30-5.90) m/uL Hgb 18.0 H (13.0-17.5) gm/dL Hct 51.1 (39.0-53.0) % MCV 81.6 (80.0-100.0) fL MCH 28.8 (25.0-35.0) pg MCHC 35.2 (31.0-37.0) g/dL RDW 12.2 (11.5-15.5) % Plt Count 342 (150-450) k/uL Neutrophils % 82 % Lymphocytes % 11 % Monocytes % 5 % Eosinophils % 0 % Basophils % 0 % Neutrophils # 12.1 H (1.3-7.7) k/uL Lymphocytes # 1.6 (1.0-4.8) k/uL Monocytes # 0.8 (0-1.0) k/uL Eosinophils # 0.1 (0-0.7) k/uL Basophils # 0.1 (0-0.2) k/uL Sodium 135 L (137-145) mmol/L Potassium 4.0 (3.5-5.1) mmol/L Chloride 95 L (98-107) mmol/L Carbon Dioxide 25 (22-30) mmol/L Anion Gap 15 mmol/L BUN 11 (9-20) mg/dL Creatinine 0.88 (0.66-1.25) mg/dL Est GFR (CKD-EPI)AfAm >90 (>60 ml/min/1.73 sqM) Est GFR (CKD-EPI)NonAf >90 (>60 ml/min/1.73 sqM) Glucose 109 H (74-99) mg/dL Plasma Lactic Acid Bradford 2.0 (0.7-2.0) mmol/L Calcium 10.6 H (8.4-10.2) mg/dL Total Bilirubin 1.5 H (0.2-1.3) mg/dL AST 34 (17-59) U/L ALT 26 (4-49) U/L Alkaline Phosphatase 69 (38-126) U/L Total Protein 8.8 H (6.3-8.2) g/dL Albumin 5.3 H (3.5-5.0) g/dL Disposition Clinical Impression: Intractable headache Disposition: ADMITTED IP TO THIS HOSP Condition: Fair Is patient prescribed a controlled substance at d/c from ED?: No Referrals: None,Stated [Primary Care Provider] - 1-2 days
[2019-05-15 19:44] LABS: Basophils # (A) 0.1 k/uL (0-0.2); Basophils % (A) 0 %; Eosinophils # (A) 0.1 k/uL (0-0.7); Eosinophils % (A) 0 %; HCT 51.1 % (39.0-53.0); Lymphocytes # (A) 1.6 k/uL (1.0-4.8); Lymphocytes % (A) 11 %; MCH 28.8 pg (25.0-35.0); MCHC 35.2 g/dL (31.0-37.0); MCV 81.6 fL (80.0-100.0); Monocytes # (A) 0.8 k/uL (0-1.0); Monocytes % (A) 5 %; Neutrophils # (A) 12.1 k/uL (1.3-7.7); Neutrophils % (A) 82 %; Platelet Count 342 k/uL (150-450); RBC 6.26 m/uL (4.30-5.90); RDW 12.2 % (11.5-15.5); WBC 14.8 k/uL (3.8-10.6)
[2019-05-15 19:54] LABS: ALT 26 U/L (4-49); AST 34 U/L (17-59); African American GFR (CKD) >90 (>60 ml/min/1.73 sqM); Albumin 5.3 g/dL (3.5-5.0); Alkaline Phosphatase 69 U/L (38-126); Anion Gap 15 mmol/L; Blood Urea Nitrogen 11 mg/dL (9-20); Calcium 10.6 mg/dL (8.4-10.2); Carbon Dioxide 25 mmol/L (22-30); Chloride 95 mmol/L (98-107); Glucose 109 mg/dL (74-99); Non-African American GFR(CKD) >90 (>60 ml/min/1.73 sqM); Sodium 135 mmol/L (137-145); Total Bilirubin 1.5 mg/dL (0.2-1.3); Total Protein 8.8 g/dL (6.3-8.2)
[2019-05-15] MEDS ORDERED: SODIUM CHLORIDE 0.9% 500 ML 500 ML IV ONE (20:32)
[2019-05-15] MEDS ORDERED: ONDANSETRON 4 MG ODT STARTER PACK 2 TAB BTL PO STA (20:49)
[2019-05-15] MEDS ORDERED: KETOROLAC 30 MG/ML 1 ML VIAL IVP STA (21:14)
[2019-05-15] MEDS ORDERED: ONDANSETRON 4 MG/2 ML VIAL IVP STA ×2 (21:47→21:56)
[2019-05-15] MEDS ORDERED: CAFFEINE CITRATE 60 MG/3 ML VIAL IV STA (22:53)
[2019-05-15] MEDS ORDERED: NALOXONE 0.4 MG/ML 1 ML VIAL IV PRN (23:11)
[2019-05-15] MEDS ORDERED: HYDROmorphone 0.5 MG/0.5 ML SYRINGE IVP PRN (23:28)
[2019-05-15] MEDS: SODIUM CHLORIDE 0.9% 1,000 ML IV SCH (23:37)
[2019-05-16] MEDS ORDERED: SUMAtriptan SUCCINATE 6 MG/0.5 ML VIAL SQ ONE (00:15)
--- NOTE | 2019-05-16 00:19 | P.HPIM ---
History of Present Illness H&P Date: 05/15/19 Patient is a 43-year-old male with a PMH of cerebral cysts status post ENVIRONMENTAL ISSUES INSTRUCTOR shunting at age 9, DJD, and GERD who presents to the ED with complaints of intractable headache with nausea and vomiting ongoing for the past 3 weeks. The patient had recently presented to [place] ED on 05/10 with similar complaints after which he was admitted to the medicine service. He was evaluated by neurology though was deemed not appropriate for our facility and was subsequently transferred to [facility] for further management. The patient reportedly had a blood patch performed and was subsequently discharged earlier today. Upon returning home, the patient noted that his headache persisted and he felt that he was discharged prematurely, and subsequently returned to the ED. The case was reportedly discussed with [facility], who noted that no surgical intervention was currently planned and that the patient may be more appropriate for a neurologist at [facility]. The case was reportedly discussed with the on-call neurologist, who was in agreement with the admission and subsequent consult. At the interview, the patient reported continuous 8 out of 10 left-sided retro-orbital headache, unchanged from previous few days with associated nausea and multiple episodes of nonbi lious vomiting. She also reported some associated dizziness upon standing or walking. He denied dizziness at rest. He otherwise denied any additional complaints. He denied visual changes, numbness, tingling, weakness, chest pain, shortness of breath, fever, chills, cough, recent travel, or sick contacts. He underwent an extensive evaluation in the emergency room with laboratory evaluation showing WBC count 14.8, hemoglobin 18.0, platelets 342, sodium 135, potassium 4.0, chloride 95, BUN 11, creatinine 0.88, total bilirubin 1.5, and albumin 5.3. EKG revealed normal sinus rhythm with sinus arrhythmia and incomplete right bundle branch block with T-wave inversion in leads V1 and V2. Review of Systems Pertinent positives and negatives as discussed in HPI, a complete review of systems was performed and all other systems are negative. 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 History of Any Multi-Drug Resistant Organisms: None Reported Past Surgical History: Orthopedic Surgery Additional Past Surgical History / Comment(s): brain shunt, plate in left lower leg secondary to fracture Past Anesthesia/Blood Transfusion Reactions: Motion Sickness Past Psychological History: No Psychological Hx Reported Smoking Status: Former smoker Past Alcohol Use History: None Reported Past Drug Use History: None Reported - Past Family History Father Additional Family Medical History / Comment(s): heart issues, neck and back issues Medications and Allergies Home Medications Medication Instructions Recorded Confirmed Type Famotidine [Pepcid] 20 mg PO BID 05/11/19 05/11/19 History Ondansetron Odt [Zofran ODT] 4 mg PO Q12HR PRN 05/11/19 05/11/19 History Pantoprazole Sodium [Protonix] 40 mg PO DAILY 05/11/19 05/11/19 History Prochlorperazine Suppository 25 mg RECTAL BID PRN 05/11/19 05/11/19 History [Compazine] SUMAtriptan SUCCINATE [Imitrex] 50 mg PO DAILY PRN 05/11/19 05/11/19 History Allergies Allergy/AdvReac Type Severity Reaction Status Date / Time No Known Allergies Allergy Verified 05/15/19 18:00 Physical Exam Vitals: Vital Signs Temp Pulse Resp BP Pulse Ox 05/15/19 23:41 98.0 F 62 18 136/81 97 05/15/19 21:14 97.8 F 57 L 18 142/88 99 05/15/19 17:58 97.5 F L 87 18 143/94 98 Intake and Output 05/15/19 05/15/19 05/16/19 14:59 22:59 06:59 Other: Weight 83.915 kg General: non toxic, no distress, appears at stated age, overweight Derm: no unusual rashes/lesions no unusual ecchymoses, warm, dry Head: atraumatic, normocephalic, symmetric Eyes: EOMI, no lid lag, anicteric sclera, pupils equal round reactive to light ENT: Nose and ears atraumatic, no thrush, no pharyngeal erythema Neck: No thyromegaly, no cervical lymphadenopathy, trachea midline, supple Mouth: no lip lesion, mucus membranes moist Cardiovascular: S1S2 reg, no murmur, positive posterior tibial pulse bilateral, no edema, capillary refill less than 2 seconds Lungs: CTA bilateral, no rhonchi, no rales , no accessory muscle use Abdominal: soft, nontender to palpation, no guarding, no appreciable or ganomegaly, normal bowel sounds Ext: no gross muscle atrophy, muscle strength 5 out of 5 in all 4 extremities grossly, no contractures, Neuro: CN II-XI grossly intact, light touch intact all 4 extremities, finger to nose within normal limits, Psych: Alert, oriented, appropriate affect Results CBC & Chem 7: 05/15/19 19:00 05/15/19 19:00 Labs: Abnormal Lab Results - Last 24 Hours (Table) 05/15/19 05/15/19 Range/Units 19:00 19:00 WBC 14.8 H (3.8-10.6) k/uL RBC 6.26 H (4.30-5.90) m/uL Hgb 18.0 H (13.0-17.5) gm/dL Neutrophils # 12.1 H (1.3-7.7) k/uL Sodium 135 L (137-145) mmol/L Chloride 95 L (98-107) mmol/L Glucose 109 H (74-99) mg/dL Calcium 10.6 H (8.4-10.2) mg/dL Total Bilirubin 1.5 H (0.2-1.3) mg/dL Total Protein 8.8 H (6.3-8.2) g/dL Albumin 5.3 H (3.5-5.0) g/dL Assessment and Plan Plan: Intractable headache, with nausea and vomiting -Neurologist clinical application specialist recommended caffeine with consult -C/w Anti-emetics -Will attempt Sumatriptan SQ 6 mg once. Patient takes 50 mg po PRN at home -Fall precautions Leukocytosis -No signs of active infection at this time -Monitor CBC for now Elevated total bilirubin -Unknown etiology -Monitor for now DVT prophylaxis -IPCDs The patient is admitted with an anticipated less than 2 midnight stay for evaluation of headache CODE STATUS: Full Code Discussed with: Patient Anticipated discharge date: 1-[address]: Home A total of 35 minutes was spent on the care of this complex patient more than 50% of the time was spent in counseling and care coordination.
[2019-05-16] MEDS: ONDANSETRON 4 MG/2 ML VIAL IVP PRN ×2 (06:01→14:08)
[2019-05-16 07:36] LABS: HCT 41.5 % (39.0-53.0); MCHC 35.3 g/dL (31.0-37.0); MCV 82.4 fL (80.0-100.0); Mean Platelet Volume 7.6; Platelet Count 245 k/uL (150-450); RBC 5.04 m/uL (4.30-5.90); RDW 12.3 % (11.5-15.5); WBC 11.5 k/uL (3.8-10.6)
[2019-05-16 07:54] LABS: ALT 20 U/L (4-49); AST 23 U/L (17-59); African American GFR (CKD) >90 (>60 ml/min/1.73 sqM); Albumin 3.8 g/dL (3.5-5.0); Alkaline Phosphatase 44 U/L (38-126); Anion Gap 9 mmol/L; Blood Urea Nitrogen 12 mg/dL (9-20); Calcium 9.3 mg/dL (8.4-10.2); Carbon Dioxide 25 mmol/L (22-30); Chloride 103 mmol/L (98-107); Glucose 96 mg/dL (74-99); Non-African American GFR(CKD) >90 (>60 ml/min/1.73 sqM); Potassium 3.9 mmol/L (3.5-5.1); Sodium 137 mmol/L (137-145); Total Protein 6.7 g/dL (6.3-8.2)
[2019-05-16 07:55] LABS: HGB 14.6 gm/dL (13.0-17.5)
[2019-05-16] MEDS ORDERED: SUMAtriptan SUCCINATE 6 MG/0.5 ML VIAL SQ PRN ×2 (09:57→10:22)
[2019-05-16] MEDS: SODIUM CHLORIDE 0.9% 1,000 ML IV SCH (10:31)
--- NOTE | 2019-05-16 10:57 | P.PN ---
Subjective Progress Note Date: 05/16/19 Principal diagnosis: Intractable Headache Patient is a 43-year-old male with a PMH of cerebral cysts status post SECURITY TESTER shunting at age 9, DJD, and GERD who presents with complaints of intractable headache with nausea and vomiting ongoing for the past 3 weeks. The patient reportedly had a blood patch performed secondary to a steroid injection that may have compromised the dura. Hence, the headache. Upon returning home, the patient noted that his headache persisted and he felt that he was discharged prematurely, and subsequently returned to the ED. The case was reportedly disc ussed with [facility], who noted that no surgical intervention was currently planned and that the patient may be more appropriate for a neurologist at [facility]. Today patient's headache has improved. Imitrix sub-q is helping. Patient feels better laying down. Patient denies nausea, vomiting, fever, or chills at this time. Objective - Vital Signs Vital signs: Vital Signs Temp 98.3 F 05/16/19 07:28 Pulse 91 05/16/19 08:00 Resp 22 05/16/19 08:00 BP 129/79 05/16/19 07:28 Pulse Ox 97 05/16/19 07:28 Intake & Output 05/15/19 05/16/19 05/16/19 18:59 06:59 18:59 Weight 83.915 kg 83.915 kg 83.915 kg Other: Voiding Method Toilet - Exam General: [non toxic], [no distress], [appears at stated age] Derm: [warm], [dry] Head: [atraumatic], [normocephalic], [symmetric] Eyes: [EOMI], [no lid lag], [anicteric sclera] Mouth: [no lip lesion], [mucus membranes moist] Cardiovascular: [S1S2 reg], [no murmur], [positive posterior tibial pulse bilateral], Lungs: [CTA bilateral], [no rhonchi, no rales] , [no accessory muscle use] Abdominal: [soft], [ nontender to palpation], [no guarding], [no appreciable organomegaly] Ext: [no gross muscle atrophy], [no edema], [no contractures] Neuro: [ CN II-XI grossly intact], [no focal neuro deficits] Psych: [Alert], [oriented], [appropriate affect] - Labs CBC & Chem 7: 05/16/19 06:43 05/16/19 06:43 Labs: Abnormal Lab Results - Last 24 Hours (Table) 05/15/19 05/15/19 05/16/19 Range/Units 19:00 19:00 06:43 WBC 14.8 H 11.5 H (3.8-10.6) k/uL RBC 6.26 H (4.30-5.90) m/uL Hgb 18.0 H (13.0-17.5) gm/dL Neutrophils # 12.1 H (1.3-7.7) k/uL Sodium 135 L (137-145) mmol/L Chloride 95 L (98-107) mmol/L Glucose 109 H (74-99) mg/dL Calcium 10.6 H (8.4-10.2) mg/dL Total Bilirubin 1.5 H (0.2-1.3) mg/dL Total Protein 8.8 H (6.3-8.2) g/dL Albumin 5.3 H (3.5-5.0) g/dL Assessment and Plan Assessment: Intractable headache, with nausea and vomiting -Neurologist avionics safety inspector recommended caffeine. Awaiting further recommendations -C/w Anti-emetics -Sumatriptan SQ 6 mg q 12 hours prn -Fall precautions -[facility]btain [facility] Leukocytosis improving -No signs of active infection at this time - white blood cell count is improving DVT prophylaxis -IPCDs The patient is admitted with an anticipated less than 2 midnight stay for evaluation of headache CODE STATUS: Full Code Discussed with: Patient Anticipated discharge date: 1-[address]: Home A total of 35 minutes was spent on the care of this complex patient more than 50% of the time was spent in counseling and care coordination.
--- NOTE | 2019-05-16 14:41 | P.CNNES ---
History of Present Illness Consult date: 05/16/19 Reason for Consult: intractable headache History of Present Illness: Mr. Saulo Preston is a pleasant 43-year-old male who is seen in neurologic cons ultation on May 16, 2019, via teleneurology. The patient reports having headache for the past 3 weeks or so. He says that the headache began suddenly at around 6 PM, after he returned home from work. The pain was severe at onset. He reports a pressure sensation with vomiting. The patient does not do any heavy lifting for work. Mr. Preston did have an epidural injection in his mid back, approximately one week prior to the onset of the headache. This injection was done because of neck pain. The patient denies any heavy lifting and Valsalva type maneuver. He did receive benefit from the epidural injection. The headache is described as a pressure sensation in the posterior aspect of his head. Pressure also involves the sides of his head. There are no visual changes. There is no light sensitivity. The patient was apparently worked up at [facility], because of his CITIZENSHIP INSTRUCTOR shunt. He reports having x-rays of his entire body and it was found that the shunt is not connected. The neurosurgeon felt that there was no surgical intervention needed at this point in time. Patient had this CITIZENSHIP INSTRUCTOR shunt placed when he was a child because of drainage of arachnoid cysts. In regards to his current headache, patient says that his pain is better when he is lying flat. It is not completely resolved however he does also notices pain in his eyes with eye movement. Especially when looking laterally to the right. There is no neck pain. Patient continues to be slightly nauseated. He feels the headache is worse since he had the blood patch, 2 days ago. 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 History of Any Multi-Drug Resistant Organisms: None Reported Past Surgical History: Orthopedic Surgery Additional Past Surgical History / Comment(s): brain shunt, plate in left lower leg secondary to fracture Past Anesthesia/Blood Transfusion Reactions: Motion Sickness Smoking Status: Former smoker - Past Family History Father Additional Family Medical History / Comment(s): heart issues, neck and back issues Medications and Allergies Home Medications Medication Instructions Recorded Confirmed Type Famotidine [Pepcid] 20 mg PO BID 05/11/19 05/16/19 History Ondansetron Odt [Zofran ODT] 4 mg PO Q12HR PRN 05/11/19 05/16/19 History Pantoprazole Sodium [Protonix] 40 mg PO DAILY 05/11/19 05/16/19 History Prochlorperazine Suppository 25 mg RECTAL BID PRN 05/11/19 05/16/19 History [Compazine] SUMAtriptan SUCCINATE [Imitrex] 50 mg PO DAILY PRN 05/11/19 05/16/19 History Magnesium Oxide 200 mg PO BID 05/16/19 05/16/19 History Methocarbamol [Robaxin-750] 750 mg PO QID PRN 05/16/19 05/16/19 History oxyCODONE HCL [OxyIR] 5 - 10 mg PO Q4H PRN 05/16/19 05/16/19 History Allergies Allergy/AdvReac Type Severity Reaction Status Date / Time No Known Allergies Allergy Verified 05/16/19 11:38 Physical Examination - Vital Signs Vital Signs: Vital Signs Temp Pulse Pulse Resp BP BP Pulse Ox 05/16/19 08:00 91 22 05/16/19 07:28 98.3 F 69 16 129/79 97 05/16/19 01:01 91 05/16/19 00:45 98.0 F 98 22 148/73 96 05/15/19 23:41 98.0 F 62 18 136/81 97 05/15/19 21:14 97.8 F 57 L 18 142/88 99 05/15/19 17:58 97.5 F L 87 18 143/94 98 Intake and Output 05/15/19 05/16/19 05/16/19 22:59 06:59 14:59 Intake Total 700 Balance 700 Intake: Intake, IV Titration 700 Amount Sodium Chloride 0.9% 1, 700 000 ml @ 100 mls/hr IV . Q10H [facility] Rx#:[id number] Other: Voiding Method Toilet # Voids 2 Weight 83.915 kg 83.915 kg 83.915 kg Gen.: The patient is supine in the bed. He is well-nourished, well-developed and in mild to moderate distress. HEENT: Head is atraumatic, normocephalic. Fundus not visualized. There is no scleral icterus. Mucous membranes are moist. Neck: Supple, without nuchal rigidity Heart: Regular rate and rhythm Lungs: Clear to auscultation Extremities: Without edema Neurological examination Mental status: Patient is awake, alert and oriented 3. His speech is clear. Cranial nerves: Pupils are equal, round and reactive to light. Visual redman are full to confrontation. Extraocular muscles are intact. There is no nystagmus. Facial sensations intact. There is no facial asymmetry. Hearing is grossly intact. Uvula and palate are midline. Shoulder shrug is symmetric. Tongue protrudes midline. Motor: Strength is 5/5 throughout Coordination: Finger to nose and rapid alternating movements are intact Sensation: Grossly intact to light touch Deep tendon reflexes: 2+/4+ throughout Gait: Not assessed Results - Laboratory Findings CBC and BMP: 05/16/19 06:43 05/16/19 06:43 Abnormal Lab Findings: Abnormal Labs 05/15/19 05/15/19 05/16/19 19:00 19:00 06:43 WBC 14.8 H 11.5 H RBC 6.26 H Hgb 18.0 H Neutrophils # 12.1 H Sodium 135 L Chloride 95 L Glucose 109 H Calcium 10.6 H Total Bilirubin 1.5 H Total Protein 8.8 H Albumin 5.3 H Assessment and Plan Assessment: Impressions 1. Patient's headache sounds to be consistent with a low pressure headache, likely secondary to unintentional puncture of the dura during epidural steroid injection. Continued headache is likely secondary to continued CSF leak either related to the initial puncture or the second puncture done for blood patch 2. History of CITIZENSHIP INSTRUCTOR shunt placed as a child Plan: Recommendations 1. I discussed options with the patient. We have elected to keep him in the h ospital for a second blood patch, IV fluids, nausea control and caffeine 2. Pain management as been consulted for blood patch, however this cannot be done until Friday, May 17, 2019 3. After further investigation, blood patch may be able to be performed by anesthesia, today 4. The patient should remain in the hospital for at least 12 hours following the blood patch. He should remain supine and continue with IV fluids to prevent another low-pressure headache Time with Patient: Greater than 30 (spent 45 minutes with patient)
[2019-05-16] MEDS ORDERED: HYDROmorphone 0.5 MG/0.5 ML SYRINGE IVP PRN (14:52)
[2019-05-16 15:30] VITALS: BP 148/79; PULSE 57; RESP 16; TEMP 97.5
--- NOTE | 2019-05-16 16:20 | P.DS ---
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 The patient reportedly had a blood patch performed secondary to a steroid injection that may have compromised the dura. Hence, the headache. Upon returning home, the patient noted that his headache persisted and he felt that he was discharged prematurely, and subsequently returned to the ED. The case was reportedly discussed with [facility], who noted that no surgical intervention was currently planned and that the patient may be more appropriate for a neurologist at [facility]. Today patient's headache has improved. Imitrix sub-q is helping. Patient feels better laying down. Patient denies nausea, vomiting, fever, or chills at this time. Neurology as well as anesthesiology evaluated the patient and determined a neurosurgery consult was needed. Unfortunately, we cannot provide that here at [facility]. As a result, patient will be transferred to [facility]. [facility] and [facility] declined patient secondary to COVID 19 pandemic. On initial presentation in the emergency department white blood cell count was 14.8 hemoglobin was 51.1 hematocrit 81.6 platelets 342. Upon discharge white blood cell count came down to 11.5 hemoglobin went down to 14.6 hematocrit 41.5 and platelets 245. Electrolytes were stable. BUN/creatinine remained within normal limits. Patient denied focal neurological deficits or dizziness. vitals Temp 98.3 BP 129/79 HR 69 RR 16 Oxygen 97% ra Physical Exam General: [non toxic], [no distress], [appears at stated age] Derm: [warm], [dry] Head: [atraumatic], [normocephalic], [symmetric] Eyes: [EOMI], [no lid lag], [anicteric sclera] Mouth: [no lip lesion], [mucus membranes moist] Cardiovascular: [S1S2 reg], [no murmur], [positive posterior tibial pulse bilateral], Lungs: [CTA bilateral], [no rhonchi, no rales] , [no accessory muscle use] Abdominal: [soft], [ nontender to palpation], [no guarding], [no appreciable organomegaly] Ext: [no gross muscle atrophy], [no edema], [no contractures] Neuro: [ CN II-XI grossly intact], [no focal neuro deficits] Psych: [Alert], [oriented], [appropriate affect] Assessment: Intractable headache, with nausea and vomiting and DISTILLING DEPARTMENT SUPERVISOR shunt -Neurologist recommended nurosurgery consult -C/w Anti-emetics -Sumatriptan SQ 6 mg q 12 hours prn -Fall precautions -Obtain records from [facility] Leukocytosis improving -No signs of active infection at this time - white blood cell count is improving PATIENT WILL BE TRANSFERRED TO [facility]. ACCEPTING PHYSICIAN IS DR. KHUSHBOO ASHER Patient Condition at Discharge: Stable Plan - Discharge Summary Discharge Rx Participant: No New Discharge Prescriptions: Continue SUMAtriptan SUCCINATE [Imitrex] 50 mg PO DAILY PRN PRN Reason: Migraine Headache Prochlorperazine Suppository [Compazine] 25 mg RECTAL BID PRN PRN Reason: Nausea Famotidine [Pepcid] 20 mg PO BID oxyCODONE HCL [OxyIR] 5 - 10 mg PO Q4H PRN PRN Reason: Pain Methocarbamol [Robaxin-750] 750 mg PO QID PRN PRN Reason: Muscle Spasm Magnesium Oxide 200 mg PO BID No Action Pantoprazole Sodium [Protonix] 40 mg PO DAILY Ondansetron Odt [Zofran ODT] 4 mg PO Q12HR PRN PRN Reason: Nausea Discharge Medication List Famotidine [Pepcid] 20 mg PO BID 05/11/19 [History] Ondansetron Odt [Zofran ODT] 4 mg PO Q12HR PRN 05/11/19 [History] Pantoprazole Sodium [Protonix] 40 mg PO DAILY 05/11/19 [History] Prochlorperazine Suppository [Compazine] 25 mg RECTAL BID PRN 05/11/19 [History] SUMAtriptan SUCCINATE [Imitrex] 50 mg PO DAILY PRN 05/11/19 [History] Magnesium Oxide 200 mg PO BID 05/16/19 [History] Methocarbamol [Robaxin-750] 750 mg PO QID PRN 05/16/19 [History] oxyCODONE HCL [OxyIR] 5 - 10 mg PO Q4H PRN 05/16/19 [History] Follow up Appointment(s)/Referral(s): None,Stated [Primary Care Provider] - 1-2 days Discharge Disposition: DISCH/TRANS TO A [facility] HOS[facility]
== END 2019-05-16 17:53 | disposition other institution (70) ==
LOC: EC 17:56 → 4SSUR 23:03
PROVIDERS: ADMIT Internal Medicine; ATTEND Internal Medicine
DX: R51 Headache (principal); R11.2 Nausea with vomiting, unspecified; Z98.2 Presence of cerebrospinal fluid drainage device; J45.909 Unspecified asthma, uncomplicated; K21.9 Gastro-esophageal reflux disease without esophagitis; M46.92 Unspecified inflammatory spondylopathy, cervical region; M19.012 Primary osteoarthritis, left shoulder; M19.011 Primary osteoarthritis, right shoulder; M50.31 Other cervical disc degeneration, high cervical region; G89.29 Other chronic pain; I45.19 Other right bundle-branch block; M54.9 Dorsalgia, unspecified; D72.829 Elevated white blood cell count, unspecified; E80.6 Other disorders of bilirubin metabolism; E83.51 Hypocalcemia; Z98.890 Other specified postprocedural states; Z87.891 Personal history of nicotine dependence; Z82.49 Family history of ischemic heart disease and other diseases of the circulatory system; Z82.69 Family history of other diseases of the musculoskeletal system and connective tissue; Z79.899 Other long term (current) drug therapy
CPT/HCPCS: 96376; 96372; 96361; 96374; 96375; 99285; 36415; 93005; 80053 ×2; 83605; 85025; 85027; 87040; G0378 ×2; J3030; J1200; J2765; J2405 ×2; J1885; J0706; J1170 ×2; S0119

== ENCOUNTER → 2019-07-13 | Outpatient (CLI) | payer BC ==
--- NOTE | 2019-07-13 09:41 | CT ---
EXAMINATION TYPE: CT brain wo con DATE OF EXAM: 07/13/2019 COMPARISON: 05/12/2019 INDICATION: Follow up exam DLP: 1090.4 mGycm, Automated exposure control for dose reduction was used. CONTRAST: None CT of the brain is performed utilizing 3 mm thick sections through the posterior fossa and 3 mm thick sections through the remaining calvarium. Study is performed within 24 hours of arrival to the hosp ital. No abnormal hyperdensity is present to suggest an acute intracranial hemorrhage. No mass lesion is evident. No acute infarcts are evident. The hypodensity within the anterior left middle cranial fossa which ma y be some encephalomalacia or arachnoid cyst is stable in appearance. The shunt catheter appears to e nter this region. Ventricles and sulci are appropriate for the patient age. Paranasal sinuses and mastoid air cells within the [id number] are clear. IMPRESSIONS: 1. No acute intracranial process. 2. Current exam is stable from comparison.
== END | disposition home or self-care (01) ==
LOC: RADCTMAIN 08:46
PROVIDERS: ATTEND Specialist
DX: Z09 Encounter for follow-up examination after completed treatment for conditions other than malignant neoplasm (principal)
CPT/HCPCS: 70450

== ENCOUNTER 2019-09-03 20:14 | Emergency (ER) | payer BC ==
[2019-09-03 20:19] VITALS: TEMP 98.3
--- NOTE | 2019-09-03 20:49 | ED ---
Recheck HPI - General Chief Complaint: Dizziness Stated Complaint: Swelling post-shunt replacement Time Seen by Provider: 09/03/19 20:25 Source: patient, RN notes reviewed, old records reviewed Mode of arrival: ambulatory Limitations: no limitations - History of Present Illness Initial Comments: This is a 43-year-old male DF for evaluation regarding possible shunt issue. Patient was told to come the ER by neurologist as he was having some pain some dizziness especially with movement notice earlier today at work. Surgery about 4 months ago no complications of's issues or similar complaints and surgery no headache. Patient denies any other significant pain no neurological deficit patient was told by some friends anemia some swelling in the posterior aspect of his head MD Complaint: wound re-check, other (Patient here for left-sided facial swelling and dizziness) -: days(s) (Now nothing and no) Returns Today for: persistent/worsening pain related to initial visit (Patient is having some mild pain and dizziness) Symptoms Since Prior Visit: no new symptoms (Mainly new dizziness complaint) Context: planned re-check (Sent DF for evaluation by his neurologist, neurosurgeon) Associated Symptoms: none - Related Data Home Medications Medication Instructions Recorded Confirmed Methocarbamol [Robaxin-750] 750 mg PO HS 05/16/19 09/03/19 Gabapentin [Neurontin] 300 mg PO BID 09/03/19 09/03/19 HYDROcodone/APAP 5-325MG [[place] 1 tab PO DAILY PRN 09/03/19 09/03/19 5-325] Allergies Allergy/AdvReac Type Severity Reaction Status Date / Time No Known Allergies Allergy Verified 09/03/19 22:06 Review of Systems ROS Statement: Those systems with pertinent positive or pertinent negative responses have been documented in the HPI. ROS Other: All systems not noted in ROS Statement are negative. 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 History of Any Multi-Drug Resistant Organisms: None Reported Past Surgical History: Orthopedic Surgery Additional Past Surgical History / Comment(s): brain shunt may 25, plate in left lower leg secondary to fracture Past Anesthesia/Blood Transfusion Reactions: Motion Sickness Past Psychological History: No Psychological Hx Reported Smoking Status: Former smoker Past Alcohol Use History: None Reported Past Drug Use History: None Reported - Past Family History Father Additional Family Medical History / Comment(s): heart issues, neck and back issues General Exam - General Exam Comments Initial Comments: Shunt does appear to be with good placement, sutures that appear to be intact with no erythema Limitations: no limitations General appearance: alert, in no apparent distress Head exam: Present: atraumatic, normocephalic, normal inspection Eye exam: Present: normal appearance, PERRL, EOMI. Absent: scleral icterus, conjunctival injection, periorbital swelling ENT exam: Present: normal exam, mucous membranes moist Neck exam: Present: normal inspection. Absent: tenderness, meningismus, lymphadenopathy Respiratory exam: Present: normal lung sounds bilaterally. Absent: respiratory distress, wheezes, rales, rhonchi, stridor Cardiovascular Exam: Present: regular rate, normal rhythm, normal heart sounds. Absent: systolic murmur, diastolic murmur, rubs, gallop, clicks GI/Abdominal exam: Present: soft, normal bowel sounds. Absent: distended, tenderness, guarding, rebound, rigid Extremities exam: Present: normal inspection, full ROM, normal capillary refill. Absent: tenderness, pedal edema, joint swelling, calf tenderness Back exam: Present: normal inspection Neurological exam: Present: alert, oriented X3, CN II-XII intact Psychiatric exam: Present: normal affect, normal mood Skin exam: Present: warm, dry, intact, normal color. Absent: rash Course Vital Signs 09/03/19 09/03/19 20:15 22:28 Temperature 98.3 F Pulse Rate 77 80 Respiratory 16 17 Rate Blood Pressure 139/86 113/69 O2 Sat by Pulse 99 98 Oximetry - Reevaluation(s) Reevaluation #1: 09/03/19 21:04 Medical records reviewed Reevaluation #2: 09/03/19 22:49 Patient remains without headache - Consultations Consultation #1: Spoke with on-call for patient's neurosurgeon Consultation #2: Spoke with her urologist, Dr. Davila, informed of results and patient can be discharged home Medical Decision Making - Medical Decision Making 40 female with some unexplained dizziness does have history of headaches and shunt placement, no headache currently today in the ER CT is unchanged from prior patient can be discharged home Disposition Clinical Impression: Dizziness Disposition: HOME SELF-CARE Condition: Good Instructions (If sedation given, give patient instructions): Dizziness (ED) Is patient prescribed a controlled substance at d/c from ED?: No Referrals: None,Stated [Primary Care Provider] - 1-2 days
--- NOTE | 2019-09-03 21:19 | XR ---
EXAMINATION TYPE: XR chest 1V, XR skull limited, XR KUB DATE OF EXAM: 09/03/2019 COMPARISON: NONE HISTORY: Dizziness TECHNIQUE: Single frontal view of the chest is obtained. View of the abdomen obtained on 3 images, frontal and lateral views of the skull FINDINGS: There is no focal air space opacity, pleural effusion, or pneumothorax seen. The cardiac silhouette size is within normal limits. The osseous structures are intact. Shunt tubing is coiled within the abdomen. 2 discrete tubings are noted within the abdomen, one on th e left of midline is not intact. The midline tubing courses along the chest to the left of midline. T here is a second tubing in the upper chest which is discontinuous. Within the neck there is a tubing which is calcified present, second tubing courses into the right temporal region. Focus over the temp oral bone is not radiopaque. IMPRESSION: 122 please appears to be continuous with the exceptions described above.
--- NOTE | 2019-09-03 21:53 | CT ---
EXAMINATION TYPE: CT brain wo con DATE OF EXAM: 09/03/2019 COMPARISON: Prior CT brain 07/13/2019 HISTORY: Shunt replaced 05-26-19. Dizziness and lightheadedness today. CT DLP: 1149.4 mGycm. Automated Exposure Control for Dose Reduction was Utilized. TECHNIQUE: CT scan of the head is performed without contrast. FINDINGS: Shunt tubing shows a stable position, tip of the catheter in the middle cranial fossa as on prior. There is some encephalomalacia or prominent cerebral spinal fluid space at the middle crania l fossa which shows a stable appearance. Craniotomy is present at this level. There is no acute intra cranial hemorrhage, mass effect, or midline shift identified. The ventricles and sulci are within no rmal limits in size. The globes are intact and the visualized sinuses are clear. IMPRESSION: No acute intracranial hemorrhage, mass effect, or midline shift is seen. Stable postproc edural findings.
[2019-09-03 22:30] VITALS: BP 113/69; PULSE 80; RESP 17
== END 2019-09-03 23:14 | disposition home or self-care (01) ==
LOC: EC 20:14
DX: R42 Dizziness and giddiness (principal); R22.0 Localized swelling, mass and lump, head; G40.909 Epilepsy, unspecified, not intractable, without status epilepticus; Z79.899 Other long term (current) drug therapy; Z86.69 Personal history of other diseases of the nervous system and sense organs; Z87.891 Personal history of nicotine dependence; Z98.2 Presence of cerebrospinal fluid drainage device
CPT/HCPCS: 70250; 70450; 71045; 74018; 99284

== ENCOUNTER 2022-01-15 09:38 | Emergency (ER) | payer BC ==
[2022-01-15 09:43] VITALS: BP 135/89; PULSE 105; RESP 22; TEMP 98.7
[2022-01-15] MEDS ORDERED: SODIUM CHLORIDE 0.9% 2,000 ML IV STA (10:02)
[2022-01-15] MEDS ORDERED: METOCLOPRAMIDE 5 MG/ML 2 ML VIAL IVP STA (10:02)
--- NOTE | 2022-01-15 10:06 | ED ---
Nausea/Vomiting/Diarrhea HPI - General Chief complaint: Nausea/Vomiting/Diarrhea Stated complaint: Vomiting, Cramps Time Seen by Provider: 01/15/22 09:52 Source: patient, RN notes reviewed Mode of arrival: ambulatory Limitations: no limitations - History of Present Illness Initial comments: Patient is a 46 year old male presenting to the ER with a chief complaint of abdominal cramping and vomiting/nausea. Patient states he has been ill since last 01/09/22, with chills, dry cough, vomiting daily and diarrhea. He states he vomits because he was coughing so hard. Patient reports he has not had the best appetite in the past week. He describes a diffuse crampy abdominal pain rating it 6/10. Last episode of vomiting was 4am. Denies headache, chest pain, shortness of breath, diarrhea or constipation. - Related Data Previous Rx's Medication Instructions Recorded Ondansetron Odt [Zofran Odt] 4 mg PO Q8HR PRN #10 tab 01/15/22 Allergies Allergy/AdvReac Type Severity Reaction Status Date / Time No Known Allergies Allergy Verified 01/15/22 11:19 Review of Systems ROS Statement: Those systems with pertinent positive or pertinent negative responses have been documented in the HPI. ROS Other: All systems not noted in ROS Statement are negative. 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 History of Any Multi-Drug Resistant Organisms: None Reported Past Surgical History: Orthopedic Surgery Additional Past Surgical History / Comment(s): brain shunt may 25, plate in left lower leg secondary to fracture Past Anesthesia/Blood Transfusion Reactions: Motion Sickness Past Psychological History: No Psychological Hx Reported Smoking Status: Never smoker Past Alcohol Use History: None Reported Past Drug Use History: Marijuana - Past Family History Father Additional Family Medical History / Comment(s): heart issues, neck and back issues General Exam Limitations: no limitations General appearance: alert, in no apparent distress Head exam: Present: atraumatic, normocephalic, normal inspection Eye exam: Present: normal appearance, PERRL, EOMI. Absent: scleral icterus, conjunctival injection, periorbital swelling ENT exam: Present: normal exam, mucous membranes moist Neck exam: Present: normal inspection. Absent: tenderness, meningismus, lymphadenopathy Respiratory exam: Present: normal lung sounds bilaterally. Absent: respiratory distress, wheezes, rales, rhonchi, stridor Cardiovascular Exam: Present: normal rhythm, tachycardia, normal heart sounds GI/Abdominal exam: Present: soft, tenderness (diffuse ), normal bowel sounds Extremities exam: Present: normal inspection, full ROM, normal capillary refill. Absent: tenderness, pedal edema, joint swelling, calf tenderness Back exam: Present: normal inspection Neurological exam: Present: alert, oriented X3, CN II-XII intact Psychiatric exam: Present: normal affect, normal mood Skin exam: Present: warm, dry, intact, normal color. Absent: rash Course Vital Signs 01/15/22 09:41 Temperature 98.7 F Pulse Rate 105 H Respiratory 22 Rate Blood Pressure 135/89 O2 Sat by Pulse 97 Oximetry Medical Decision Making - Medical Decision Making 46 year old male presented for nausea vomiting abdominal cramping, possible dehydration. Symptoms of present for 6 days. Patient is COVID-19 positive. Patient we discharged with antiemetics return parameters were discussed. - Lab Data Result diagrams: 01/15/22 10:05 01/15/22 10:05 Lab Results 01/15/22 01/15/22 01/15/22 Range/Units 10:05 10:05 10:05 WBC 4.9 (3.8-10.6) k/uL RBC 5.96 H (4.30-5.90) m/uL Hgb 17.5 (13.0-17.5) gm/dL Hct 47.0 (39.0-53.0) % MCV 78.8 L (80.0-100.0) fL MCH 29.3 (25.0-35.0) pg MCHC 37.2 H (31.0-37.0) g/dL RDW 11.8 (11.5-15.5) % Plt Count 184 (150-450) k/uL MPV 8.6 Neutrophils % 57 % Lymphocytes % 26 % Monocytes % 12 % Eosinophils % 1 % Basophils % 2 % Neutrophils # 2.8 (1.3-7.7) k/uL Lymphocytes # 1.3 (1.0-4.8) k/uL Monocytes # 0.6 (0-1.0) k/uL Eosinophils # 0.0 (0-0.7) k/uL Basophils # 0.1 (0-0.2) k/uL Sodium 134 L (137-145) mmol/L Potassium 3.7 (3.5-5.1) mmol/L Chloride 96 L (98-107) mmol/L Carbon Dioxide 27 (22-30) mmol/L Anion Gap 11 mmol/L BUN 9 (9-20) mg/dL Creatinine 0.95 (0.66-1.25) mg/dL Est GFR (CKD-EPI)AfAm >90 (>60 ml/min/1.73 sqM) Est GFR (CKD-EPI)NonAf >90 (>60 ml/min/1.73 sqM) Glucose 123 H (74-99) mg/dL Calcium 9.0 (8.4-10.2) mg/dL Magnesium 2.2 (1.6-2.3) mg/dL Total Bilirubin 1.3 (0.2-1.3) mg/dL AST 50 (17-59) U/L ALT 41 (4-49) U/L Alkaline Phosphatase 61 (38-126) U/L Total Protein 8.0 (6.3-8.2) g/dL Albumin 4.9 (3.5-5.0) g/dL Lipase 218 (23-300) U/L Urine Color Light Yellow Urine Appearance Clear (Clear) Urine pH 6.5 (5.0-8.0) Ur Specific [place] 1.004 (1.001-1.035) Urine Protein Negative (Negative) Urine Glucose (UA) Negative (Negative) Urine Ketones Negative (Negative) Urine Blood Negative (Negative) Urine Nitrite Negative (Negative) Urine Bilirubin Negative (Negative) Urine Urobilinogen <2.0 (<2.0) mg/dL Ur Leukocyte Esterase Negative (Negative) Influenza Type A (PCR) (Not Detectd) Influenza Type B (PCR) (Not Detectd) RSV (PCR) (Not Detectd) SARS-CoV-2 (PCR) (Not Detectd) 01/15/22 Range/Units 10:05 WBC (3.8-10.6) k/uL RBC (4.30-5.90) m/uL Hgb (13.0-17.5) gm/dL Hct (39.0-53.0) % MCV (80.0-100.0) fL MCH (25.0-35.0) pg MCHC (31.0-37.0) g/dL RDW (11.5-15.5) % Plt Count (150-450) k/uL MPV Neutrophils % % Lymphocytes % % Monocytes % % Eosinophils % % Basophils % % Neutrophils # (1.3-7.7) k/uL Lymphocytes # (1.0-4.8) k/uL Monocytes # (0-1.0) k/uL Eosinophils # (0-0.7) k/uL Basophils # (0-0.2) k/uL Sodium (137-145) mmol/L Potassium (3.5-5.1) mmol/L Chloride (98-107) mmol/L Carbon Dioxide (22-30) mmol/L Anion Gap mmol/L BUN (9-20) mg/dL Creatinine (0.66-1.25) mg/dL Est GFR (CKD-EPI)AfAm (>60 ml/min/1.73 sqM) Est GFR (CKD-EPI)NonAf (>60 ml/min/1.73 sqM) Glucose (74-99) mg/dL Calcium (8.4-10.2) mg/dL Magnesium (1.6-2.3) mg/dL Total Bilirubin (0.2-1.3) mg/dL AST (17-59) U/L ALT (4-49) U/L Alkaline Phosphatase (38-126) U/L Total Protein (6.3-8.2) g/dL Albumin (3.5-5.0) g/dL Lipase (23-300) U/L Urine Color Urine Appearance (Clear) Urine pH (5.0-8.0) Ur Specific [place] (1.001-1.035) Urine Protein (Negative) Urine Glucose (UA) (Negative) Urine Ketones (Negative) Urine Blood (Negative) Urine Nitrite (Negative) Urine Bilirubin (Negative) Urine Urobilinogen (<2.0) mg/dL Ur Leukocyte Esterase (Negative) Influenza Type A (PCR) Not Detected (Not Detectd) Influenza Type B (PCR) Not Detected (Not Detectd) RSV (PCR) Not Detected (Not Detectd) SARS-CoV-2 (PCR) Detected A (Not Detectd) Disposition Clinical Impression: COVID-19 Disposition: HOME SELF-CARE Condition: Stable Instructions (If sedation given, give patient instructions): COVID-19 (Coronavirus Disease 2019) (ED) Additional Instructions: Please return to the Emergency Department if symptoms worsen or any other concerns. Prescriptions: Ondansetron Odt [Zofran Odt] 4 mg PO Q8HR PRN #10 tab PRN Reason: Nausea Is patient prescribed a controlled substance at d/c from ED?: No Referrals: None,Stated [Primary Care Provider] - 1-2 days Time of Disposition: 12:11
[2022-01-15 10:26] LABS: Basophils # (A) 0.1 k/uL (0-0.2); Basophils % (A) 2 %; Eosinophils % (A) 1 %; HGB 17.5 gm/dL (13.0-17.5); Lymphocytes # (A) 1.3 k/uL (1.0-4.8); Lymphocytes % (A) 26 %; MCH 29.3 pg (25.0-35.0); MCHC 37.2 g/dL (31.0-37.0); MCV 78.8 fL (80.0-100.0); Mean Platelet Volume 8.6; Monocytes # (A) 0.6 k/uL (0-1.0); Monocytes % (A) 12 %; Neutrophils # (A) 2.8 k/uL (1.3-7.7); Neutrophils % (A) 57 %; Platelet Count 184 k/uL (150-450); RBC 5.96 m/uL (4.30-5.90); RDW 11.8 % (11.5-15.5); WBC 4.9 k/uL (3.8-10.6)
[2022-01-15 10:32] LABS: Appearance,Urine Clear (Clear); Bilirubin,Urine Negative (Negative); Blood,Urine Negative (Negative); Color,Urine Light Yellow; Glucose,Urine (UA) Negative (Negative); Ketones,Urine Negative (Negative); Leukocyte Esterase,Urine Negative (Negative); Nitrite,Urine Negative (Negative); PH, Urine 6.5 (5.0-8.0); Protein,Urine Negative (Negative); Specific Gravity,Urine 1.004 (1.001-1.035); Urobilinogen,Urine <2.0 mg/dL (<2.0)
[2022-01-15 10:39] LABS: ALT 41 U/L (4-49); AST 50 U/L (17-59); African American GFR (CKD) >90 (>60 ml/min/1.73 sqM); Albumin 4.9 g/dL (3.5-5.0); Alkaline Phosphatase 61 U/L (38-126); Anion Gap 11 mmol/L; Blood Urea Nitrogen 9 mg/dL (9-20); Carbon Dioxide 27 mmol/L (22-30); Chloride 96 mmol/L (98-107); Glucose 123 mg/dL (74-99); Lipase 218 U/L (23-300); Magnesium 2.2 mg/dL (1.6-2.3); Non-African American GFR(CKD) >90 (>60 ml/min/1.73 sqM); Potassium 3.7 mmol/L (3.5-5.1); Sodium 134 mmol/L (137-145); Total Bilirubin 1.3 mg/dL (0.2-1.3)
== END 2022-01-15 12:23 | disposition home or self-care (01) ==
LOC: EC 09:38
DX: U07.1 COVID-19 (principal); J45.909 Unspecified asthma, uncomplicated; F12.90 Cannabis use, unspecified, uncomplicated
CPT/HCPCS: 99284 ×2; 96374 ×2; 96361 ×3; 36415; 80053; 83690; 83735; 85025; 81003; 87636; J2765

== ENCOUNTER → 2023-10-07 | Outpatient (CLI) | payer BC | LOC: LABPRL 15:43 | PROVIDERS: ATTEND Internal Medicine | CPT/HCPCS: 80053; 80061; 82306; 84153; 84443; 85025 ==

== ENCOUNTER 2023-12-02 09:11 | Day surgery (SDC) | payer BC ==
[~2023-12-02 09:11] MED LIST: LACTATED RINGERS 1,000 ML IV SCH
[2023-12-02] MEDS: IV FLUID CONTINUATION 1,000 ML IV ONE (09:48)
[2023-12-02 09:59] VITALS: RESP 16; TEMP 97.6
[2023-12-02] MEDS ORDERED: PROPOFOL 10 MG/ML 20 ML VIAL IV ONE (10:56)
--- NOTE | 2023-12-02 11:07 | P.PCN ---
Date of Procedure: 12/02/23 Procedure(s) Performed: BRIEF HISTORY: Patient is a 48-year-old pleasant white male scheduled for an elective colonoscopy as a part of screening for colon cancer. PROCEDURE PERFORMED: Colonoscopy. PREOPERATIVE DIAGNOSIS: Screening for colon cancer. IV sedation per Anesthesia. PROCEDURE: After informed consent was obtained, the patient, was brought into the endoscopy unit. IV sedation was administered by Anesthesia under continuous monitoring. Digital rectal examination was normal. Initially the Olympus CF-160 flexible video colonoscope was then inserted in the rectum, gradually advanced into the cecum without any difficulty. Careful examination was performed as the scope was gradually being withdrawn. Ileocecal valve and the appendiceal orifice were visualized and appeared normal. Prep was excellent. Mucosa of the cecum, ascending colon, transverse colon, descending colon, sigmoid colon, and rectum appeared normal. Retroflexion was performed in the rectum and no lesions were seen. The patient tolerated the procedure well. IMPRESSION: Normal-appearing colon from rectum to cecum times of colorectal neoplasia. RECOMMENDATIONS: Findings of this examination were discussed with the patient as well as his family. He was advised to have repeat screening colonoscopy in 10 years.
[2023-12-02 11:36] VITALS: BP 121/77; PULSE 58
== END 2023-12-02 11:49 | disposition home or self-care (01) ==
LOC: ORWHC2ENDO 09:11
PROVIDERS: ATTEND Internal Medicine Gastroenterology
DX: Z12.11 Encounter for screening for malignant neoplasm of colon
CPT/HCPCS: 45378

== ENCOUNTER 2023-12-26 12:58 | Emergency (ER) | payer BC ==
[2023-12-26] MEDS: MAGNESIUM SULFATE-D5W PMX 1 GM in DEXTROSE/WATER 1 100ML.BAG IVPB ONE (14:32)
[2023-12-26] MEDS: SODIUM CHLORIDE 0.9% 1,000 ML IV STA (14:32)
[2023-12-26 14:33] LABS: Basophils % (A) 0 %; Eosinophils # (A) 0.1 k/uL (0-0.7); Eosinophils % (A) 0 %; HCT 47.4 % (39.0-53.0); HGB 15.9 gm/dL (13.0-17.5); Lymphocytes # (A) 1.3 k/uL (1.0-4.8); Lymphocytes % (A) 8 %; MCH 26.1 pg (25.0-35.0); MCHC 33.6 g/dL (31.0-37.0); MCV 77.7 fL (80.0-100.0); Mean Platelet Volume 6.6; Monocytes % (A) 6 %; Neutrophils # (A) 13.4 k/uL (1.3-7.7); Neutrophils % (A) 84 %; Platelet Count 316 k/uL (150-450); RBC 6.09 m/uL (4.30-5.90); RDW 13.5 % (11.5-15.5); WBC 15.9 k/uL (3.8-10.6)
[2023-12-26] MEDS: diphenhydrAMINE 50 MG/ML 1 ML VIAL IVP STA (14:33)
[2023-12-26] MEDS: KETOROLAC 15 MG/ML 1 ML VIAL IVP STA ×2 (14:33→15:39)
[2023-12-26] MEDS: PROCHLORPERAZINE INJ 10 MG/2 ML VIAL IVP STA (14:34)
[2023-12-26] MEDS: DEXAMETHASONE SOD PHOSPHATE 10 MG/ML 1 ML VIAL IVP STA (14:35)
--- NOTE | 2023-12-26 14:44 | ED ---
Headache HPI - General Source: patient, RN notes reviewed Mode of arrival: wheelchair Limitations: no limitations - History of Present Illness MD Complaint: headache <Homa Cadrenas - Last Filed: 12/26/23 16:54> <Wendi Ballesteros - Last Filed: 12/27/23 01:01> - General Chief Complaint: Headache Stated Complaint: Back pain Time Seen by Provider: 12/26/23 13:29 - History of Present Illness Initial Comments: This is a 48-year-old male who presents to the emergency department for headaches. Patient has been dealing with severe headaches for the last 4 years and has been on multiple medications without any relief. For the last 2 weeks his headaches have been more severe. He was hospitalized at [facility] for a few days and then at [facility] for another couple of days within this 2- week timeframe. He had a lumbar puncture done at [facility] yesterday and is still waiting on those results. States that he had blood work and a CT scan done as well. Was found to have leukocytosis on the blood work and the CT scan was negative. He continues to have a headache, prompting his visit here today. The headache involves his entire head. He has associated nausea/vomiting as well as light and sound sensitivity. Does not believe that the headache is different from his normal headaches following the lumbar puncture. (Homa Cardenas) - Related Data Home Medications Medication Instructions Recorded Confirmed Atorvastatin Calcium 40 mg PO HS 11/28/23 12/02/23 Ezetimibe [Zetia] 10 mg PO HS 11/28/23 12/02/23 Previous Rx's Medication Instructions Recorded Ketorolac [Toradol] 10 mg PO Q8HR #15 tab 12/26/23 Ondansetron Odt [Zofran Odt] 4 mg PO Q8HR PRN #10 tab 12/26/23 Allergies Allergy/AdvReac Type Severity Reaction Status Date / Time No Known Allergies Allergy Verified 12/26/23 13:08 Review of Systems ROS Other: All systems not noted in ROS Statement are negative. <Homa Cardenas - Last Filed: 12/26/23 16:54> ROS Other: All systems not noted in ROS Statement are negative. <Wendi Ballesteros - Last Filed: 12/27/23 01:01> ROS Statement: Those systems with pertinent positive or pertinent negative responses have been documented in the HPI. 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 spinal tap 12/25/2023 History of Any Multi-Drug Resistant Organisms: None Reported Past Surgical History: Orthopedic Surgery Additional Past Surgical History / Comment(s): brain shunt 2019, plate in left lower leg secondary to fracture Past Anesthesia/Blood Transfusion Reactions: No Reported Reaction, Motion Sickness Past Psychological History: No Psychological Hx Reported Smoking Status: Former smoker - Past Family History Father Additional Family Medical History / Comment(s): heart issues, neck and back issues <Homa Cardenas - Last Filed: 12/26/23 16:54> General Exam Limitations: no limitations General appearance: alert, in distress Head exam: Present: atraumatic, normocephalic, normal inspection Eye exam: Present: normal appearance, PERRL, EOMI. Absent: scleral icterus, conjunctival injection, periorbital swelling Respiratory exam: Present: normal lung sounds bilaterally. Absent: respiratory distress, wheezes, rales, rhonchi, stridor Cardiovascular Exam: Present: regular rate, normal rhythm, normal heart sounds. Absent: systolic murmur, diastolic murmur, rubs, gallop, clicks Neurological exam: Present: alert, oriented X3, CN II-XII intact Psychiatric exam: Present: normal affect, normal mood Skin exam: Present: warm, dry, intact, normal color. Absent: rash <Homa Cardenas - Last Filed: 12/26/23 16:54> Course Vital Signs 12/26/23 12/26/23 12/26/23 13:05 15:30 17:57 Temperature 97.5 F L 98.1 F 97.9 F Pulse Rate 68 67 65 Respiratory 20 18 16 Rate Blood Pressure 142/92 131/78 162/90 O2 Sat by Pulse 98 99 100 Oximetry 12/26/23 20:51 Temperature Pulse Rate 65 Respiratory 18 Rate Blood Pressure 158/83 O2 Sat by Pulse 99 Oximetry Medical Decision Making - Lab Data Result diagrams: 12/26/23 14:17 12/26/23 14:17 <Homa Cardenas - Last Filed: 12/26/23 16:54> - Lab Data Result diagrams: 12/26/23 14:17 12/26/23 14:17 <BallesterosWendi - Last Filed: 12/27/23 01:01> - Medical Decision Making This is a 48 year old male who presents to the emergency department for head aches. Was pt. sent in by a medical professional or institution? @ -No Did you speak to anyone other than the patient for history? @ -No Did you review nursing and triage notes? @ -Yes, and I agree, it is accurate with regards to the patient's symptoms. Were old charts reviewed? @ -No Differential Diagnosis? @ -Differential Headache: Migraine, tension, cluster, carbon monoxide, central venous thrombosis, pension karma temporal arteritis, acute closure glaucoma, intercranial hemorrhage, mastoiditis, sinusitis, head injury, this is not meant to be an all-inclusive list. EKG interpreted by me (3pts min.)? @ -Not obtained X-rays interpreted by me (1pt min.)? @ -Not obtained CT interpreted by me (1pt min.)? @ -Not obtained U/S interpreted by me (1pt. min.)? @ -Not obtained What testing was considered but not performed? (CT, X-rays, U/S, labs)? Why? @ -None What meds were considered but not given? Why? @ -None Did you discuss the management of the patient with other professionals? @ -No Did you reconcile home meds? @ -No Was smoking cessation discussed for >3mins.? @ -No Was critical care preformed (if so, how long)? @ -No Were there social determinants of health that impacted care today? How? (Homelessness, low income, unemployed, alcoholism, drug addiction, transportation, low edu. Level, literacy, decrease access to med. care, snf, rehab)? @ -No Was there de-escalation of care discussed even if they declined? (Discuss DNR or withdrawal of care, Hospice)? @ -No What co-morbidities impacted this encounter? (DM, HTN, Smoking, COPD, CAD, Cancer, CVA, Hep., AIDS, mental health diagnosis, sleep apnea, morbid obesity)? @ -Migraines Was patient admitted / discharged? @ -Lab work demonstrates leukocytosis with a white blood cell count of 15.9. He also has hyponatremia with a sodium of 127. The leukocytosis may be reactive due to the patient's persistent nausea and vomiting. He was first treated with a migraine cocktail consisting of IV fluids, Toradol, Decadron, Compazine, and Benadryl. He was also given 1 g of magnesium sulfate. He did not have much improvement following those medications and was then given another dose of Toradol along with Dilaudid. The lumbar puncture does not appear to be the cause of his current headache, this seems to be more so consistent with his ongoing migraines. However, caffeine was ordered to see if this offers any additional benefit. Case signed out to Wendi Ballesteros PA-C, at shift completion pending patient's clinical response and disposition. The drama director was also asked to try and obtain records from [facility], including recent visit notes and LP results. Undiagnosed new problem with uncertain prognosis? @ -None Drug Therapy requiring intensive monitoring for toxicity (Heparin, Nitro, Insulin, Cardizem)? @ -None Were any procedures done? @ -None (Homa Cardenas) Was pt. sent in by a medical professional or institution ([facility], [employer], urgent care, hospital, or fdc...) When possible be specific @ -No Did you speak to anyone other than the patient for history (EMS, parent, family, police, friend...)? What history was obtained from this source @ -No Did you review nursing and triage notes (agree or disagree)? Why? @ -I reviewed and agree with nursing and triage notes Were old charts reviewed (outside hosp., previous admission, EMS record, old EKG, old radiological studies, urgent care reports/EKG's, fdc records)? Report findings @ -No old charts were reviewed Differential Diagnosis (chest pain, altered mental status, abdominal pain women, abdominal pain men, vaginal bleeding, weakness, fever, dyspnea, syncope, headache, dizziness, GI bleed, back pain, seizure, CVA, palpatations, mental health, musculoskeletal)? @ -Differential Headache: Migraine, tension, cluster, carbon monoxide, central venous thrombosis, pension karma temporal arteritis, acute closure glaucoma, intercranial hemorrhage, mastoiditis, sinusitis, head injury, this is not meant to be an all-inclusive list. EKG interpreted by me (3pts min.). @ -None X-rays interpreted by me (1pt min.). @ -None done CT interpreted by me (1pt min.). @ -CT brain reveals no acute process, left middle cranial fossa probable CSF possibly arachnoid cyst versus other with 2 being present, tubing intact U/S interpreted by me (1pt. min.). @ -None done What testing was considered but not performed or refused? (CT, X-rays, U/S, labs)? Why? @ -None What meds were considered but not given or refused? Why? @ -None Did you discuss the management of the patient with other professionals (professionals i.e. , PA, [employer], lab, RT, psych nurse, socially responsible investment adviser, night warehouse manager, teacher, global chief creative officer, rn case mgr)? Give summary @ -No Was smoking cessation discussed for >3mins.? @ -No Was critical care preformed (if so, how long)? @ -No Were there social determinants of health that impacted care today? How? (Homelessness, low income, unemployed, alcoholism, drug addiction, transportation, low edu. Level, literacy, decrease access to med. care, snf, rehab)? @ -No Was there de-escalation of care discussed even if they declined (Discuss DNR or withdrawal of care, Hospice)? DNR status @ -No What co-morbidities impacted this encounter? (DM, HTN, Smoking, COPD, CAD, Cancer, CVA, ARF, Chemo, Hep., AIDS, mental health diagnosis, sleep apnea, morbid obesity)? @ -None Was patient admitted / discharged? Hospital course, mention meds given and route, prescriptions, significant lab abnormalities, going to OR and other pertinent info. @ -Discharge. This is a 48-year-old male with history of BLACK BELT shunt presenting with headache x 2 weeks. Patient was recently hospitalized at [facility] for same symptoms where lab work, CT brain, and lumbar puncture was performed which returned negative. Patient was discharged yesterday however headache has returned today. Headache has not changed in quality. Patient was provided with IV fluids and analgesics. Lab work remarkable for leukocytosis at 15.9 as well as hyponatremia at 127. Leukocytosis likely reactive. CT brain reveals no acute process. Discussed results with patient. Upon reevaluation, patient reports symptoms have improved. Offered admission for pain control however patient declines admission and would like to be discharged with close outpatient follow- up. I believe this is reasonable at this time. [place] reports she is unable to obtain records from [facility]. Case was discussed with my ED attending Dr. Suárez. Patient stable at time of discharge. Undiagnosed new problem with uncertain prognosis? @ -No Drug Therapy requiring intensive monitoring for toxicity (Heparin, Nitro, Insulin, Cardizem)? @ -No Were any procedures done? @ -No Diagnosis/symptom? @ -Headache Acute, or Chronic, or Acute on Chronic? @ -Acute Uncomplicated (without systemic symptoms) or Complicated (systemic symptoms)? @ -Complicated Side effects of treatment? @ -No Exacerbation, Progression, or Severe Exacerbation? @ -No Poses a threat to life or bodily function? How? (Chest pain, [place], [place], pneumonia, PE, COPD, DKA, ARF, appy, cholecystitis, CVA, Diverticulitis, Homicidal, Suicidal, threat to staff... and all critical care pts) @ -Unlikely at this time (Wendi Ballesteros) - Lab Data Lab Results 12/26/23 12/26/23 12/26/23 Range/Units 14:17 14:17 14:17 WBC 15.9 H (3.8-10.6) k/uL RBC 6.09 H (4.30-5.90) m/uL Hgb 15.9 (13.0-17.5) gm/dL Hct 47.4 (39.0-53.0) % MCV 77.7 L (80.0-100.0) fL MCH 26.1 (25.0-35.0) pg MCHC 33.6 (31.0-37.0) g/dL RDW 13.5 (11.5-15.5) % Plt Count 316 (150-450) k/uL MPV 6.6 Neutrophils % 84 % Lymphocytes % 8 % Monocytes % 6 % Eosinophils % 0 % Basophils % 0 % Neutrophils # 13.4 H (1.3-7.7) k/uL Lymphocytes # 1.3 (1.0-4.8) k/uL Monocytes # 1.0 (0-1.0) k/uL Eosinophils # 0.1 (0-0.7) k/uL Basophils # 0.0 (0-0.2) k/uL ESR 26 H (0-15) mm/Hr Sodium 127 L (137-145) mmol/L Potassium 4.1 (3.5-5.1) mmol/L Chloride 96 L (98-107) mmol/L Carbon Dioxide 27 (22-30) mmol/L Anion Gap 4 mmol/L BUN 13 (9-20) mg/dL Creatinine 0.66 (0.66-1.25) mg/dL Est GFR (CKD-EPI)AfAm >90 (>60 ml/min/1.73 sqM) Est GFR (CKD-EPI)NonAf >90 (>60 ml/min/1.73 sqM) Glucose 112 H (74-99) mg/dL Plasma Lactic Acid Bradfrod 1.1 (0.7-2.0) mmol/L Calcium 8.7 (8.4-10.2) mg/dL Magnesium 1.9 (1.6-2.3) mg/dL Total Bilirubin 1.1 (0.2-1.3) mg/dL AST 23 (17-59) U/L ALT 17 (4-49) U/L Alkaline Phosphatase 59 (38-126) U/L Total Protein 7.1 (6.3-8.2) g/dL Albumin 4.0 (3.5-5.0) g/dL Disposition <Homa Cardenas - Last Filed: 12/26/23 16:54> Is patient prescribed a controlled substance at d/c from ED?: No Time of Disposition: 20:46 <Wendi Ballesteros - Last Filed: 12/27/23 01:01> Clinical Impression: Headache Disposition: HOME SELF-CARE Condition: Stable Additional Instructions: Follow-up with neurology as discussed. Take Toradol as needed for pain and Zofran as needed for nausea. Please return to the Emergency Department if symptoms worsen or any other concerns. Prescriptions: Ketorolac [Toradol] 10 mg PO Q8HR #15 tab Ondansetron Odt [Zofran Odt] 4 mg PO Q8HR PRN #10 tab PRN Reason: Nausea Referrals: Richi Haji MD [Primary Care Provider] - 1-2 days
[2023-12-26 14:54] LABS: ALT 17 U/L (4-49); African American GFR (CKD) >90 (>60 ml/min/1.73 sqM); Anion Gap 4 mmol/L; Blood Urea Nitrogen 13 mg/dL (9-20); Calcium 8.7 mg/dL (8.4-10.2); Carbon Dioxide 27 mmol/L (22-30); Chloride 96 mmol/L (98-107); Glucose 112 mg/dL (74-99); Magnesium 1.9 mg/dL (1.6-2.3); Non-African American GFR(CKD) >90 (>60 ml/min/1.73 sqM); Sodium 127 mmol/L (137-145); Total Bilirubin 1.1 mg/dL (0.2-1.3); Total Protein 7.1 g/dL (6.3-8.2)
[2023-12-26 15:10] LABS: AST 23 U/L (17-59); Alkaline Phosphatase 59 U/L (38-126); Potassium 4.1 mmol/L (3.5-5.1)
[2023-12-26] MEDS: HYDROmorphone 1 MG/ML 1 ML SYRINGE IVP STA ×2 (15:40→17:57)
[2023-12-26] MEDS: CAFFEINE-SODIUM BENZOATE 500 MG in SODIUM CHLORIDE 0.9% 1,000 ML IVPB ONE (17:03)
[2023-12-26 17:58] VITALS: PULSE 65; TEMP 97.9
[2023-12-26 18:22] LABS: Erythrocyte Sedimentation Rate 26 mm/Hr (0-15)
--- NOTE | 2023-12-26 19:48 | CT ---
EXAMINATION TYPE: CT brain wo con DATE OF EXAM: 12/26/2023 7:03 PM COMPARISON: 09/03/2019. CLINICAL INDICATION: Male, 48 years old with history of headache x 2 weeks, CHANEY x2wks. TECHNIQUE: Brain: Axial CT images of the brain were obtained with coronal and sagittal reformats created and rev iewed. Contrast used: None. Oral contrast used: None. CT DLP: 1109.4 mGycm, Automated exposure control for dose reduction was used. FINDINGS: Brain: Extra-axial spaces: No abnormal extra-axial fluid collections.CSF attenuating probable arachnoid cyst in the middle cranial fossa on the left measuring up to 23 x 16 mm. Tubing enters this region and ap pears intact. Ventricular system: Within normal limits Cerebral parenchyma: No acute intraparenchymal hemorrhage or mass effect. The conte-white junction is well differentiated. Cerebellum: Unremarkable. Mass effect: No evidence of midline shift. Intracranial vasculature: unremarkable Soft tissues: Normal. Calvarium/osseous structures: No depressed skull fracture. Paranasal sinuses and mastoid air cells: Mild scattered paranasal sinus disease. Craniotomy changes t o the left skull. Visualized orbits: Orbital contents are intact. IMPRESSION: 1. No acute intracranial process. 2. Left middle cranial fossa probable CSF possible arachnoid cyst versus other with tubing present. Tubing appears intact. No evidence for hydronephrosis. [facility], , 12/26/2023 7:45 PM
[2023-12-26 21:03] VITALS: BP 158/83; RESP 18
== END 2023-12-26 20:51 | disposition home or self-care (01) ==
LOC: EC 12:58
DX: G43.909 Migraine, unspecified, not intractable, without status migrainosus (principal); Z87.891 Personal history of nicotine dependence
CPT/HCPCS: 36415; 80053; 85652; 83605; 83735; 85025; 86140; 70450; 99284; 96365; 96366 ×5; 96367; 96376 ×2; 96375 ×5; J1200; J0780; J1100; J1171; J3475; J1885

== ENCOUNTER 2024-06-13 15:12 | Observation (INO) | payer BC, OTHER ==
[2024-06-13] MEDS ORDERED: LORazepam 2 MG/ML INJ IV PRN (15:41)
--- NOTE | 2024-06-13 15:46 | ED ---
General Adult HPI - General Chief complaint: Seizure Stated complaint: Seizure Time Seen by Provider: 06/13/24 15:18 Source: patient, EMS, RN notes reviewed Mode of arrival: EMS Limitations: no limitations - History of Present Illness Initial comments: 48-year-old male presents to the emergency department for evaluation of seizure. The patient states that he believes he had 2 seizures today. He states that the first lasted around 5 minutes. This was followed by a second seizure lasting around 30 seconds. The patient states that he did fall to the ground. He notes that he had a headache preceding this for the past 24 to 48 hours. he does note that he had seizures in the past back in December or [facility] He reports that when he had his prior seizures he did have headaches preceding them. He denies any recent illness. Denies fever, chills. 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 - Related Data Home Medications Medication Instructions Recorded Confirmed acetaZOLAMIDE [Diamox] 1,000 mg PO BID 06/13/24 06/13/24 Previous Rx's Medication Instructions Recorded levETIRAcetam [Keppra] 500 mg PO Q12HR #60 tab 06/15/24 Allergies Allergy/AdvReac Type Severity Reaction Status Date / Time No Known Allergies Allergy Verified 06/13/24 18:04 Review of Systems ROS Statement: Those systems with pertinent positive or pertinent negative responses have been documented in the HPI. ROS Other: All systems not noted in ROS Statement are negative. 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 spinal tap 12/25/2023 History of Any Multi-Drug Resistant Organisms: None Reported Past Surgical History: Orthopedic Surgery Additional Past Surgical History / Comment(s): brain shunt 2019, plate in left lower leg secondary to fracture Past Anesthesia/Blood Transfusion Reactions: No Reported Reaction, Motion Sickness Past Psychological History: No Psychological Hx Reported Smoking Status: Former smoker - Past Family History Father Additional Family Medical History / Comment(s): heart issues, neck and back issues General Exam Limitations: no limitations General appearance: alert, in no apparent distress Head exam: Present: atraumatic, normocephalic, normal inspection Eye exam: Present: normal appearance, PERRL, EOMI. Absent: scleral icterus, conjunctival injection, periorbital swelling ENT exam: Present: normal exam, mucous membranes moist Neck exam: Present: normal inspection. Absent: tenderness, meningismus, lymphadenopathy Respiratory exam: Present: normal lung sounds bilaterally. Absent: respiratory distress, wheezes, rales, rhonchi, stridor Cardiovascular Exam: Present: regular rate, normal rhythm, normal heart sounds. Absent: systolic murmur, diastolic murmur, rubs, gallop, clicks GI/Abdominal exam: Present: soft, normal bowel sounds. Absent: distended, tenderness, guarding, rebound, rigid Extremities exam: Present: normal inspection, full ROM, normal capillary refill. Absent: tenderness, pedal edema, joint swelling, calf tenderness Back exam: Present: normal inspection Neurological exam: Present: alert, oriented X3, CN II-XII intact Psychiatric exam: Present: normal affect, normal mood Skin exam: Present: warm, dry, intact, normal color. Absent: rash Course Vital Signs 06/13/24 06/13/24 06/13/24 15:14 17:19 18:06 Temperature 98.3 F Pulse Rate 76 61 58 L Respiratory 17 18 16 Rate Blood Pressure 80/41 129/92 148/78 O2 Sat by Pulse 100 100 99 Oximetry 06/13/24 06/13/24 21:29 23:36 Temperature 98.7 F Pulse Rate 53 L 67 Respiratory 18 18 Rate Blood Pressure 111/69 124/62 O2 Sat by Pulse 99 99 Oximetry Medical Decision Making - Medical Decision Making Was pt. sent in by a medical professional or institution (, PA, FURNITURE REPAIRER, urgent care, hospital, or [facility]...) When possible be specific @ -No Did you speak to anyone other than the patient for history (EMS, parent, family, police, friend...)? What history was obtained from this source @ -No Did you review nursing and triage notes (agree or disagree)? Why? @ -I reviewed and agree with nursing and triage notes Were old charts reviewed (outside hosp., previous admission, EMS record, old EKG, old radiological studies, urgent care reports/EKG's, [facility] records)? Report findings @ -No old charts were reviewed Differential Diagnosis (chest pain, altered mental status, abdominal pain women, abdominal pain men, vaginal bleeding, weakness, fever, dyspnea, syncope, headache, dizziness, GI bleed, back pain, seizure, CVA, palpatations, mental health, musculoskeletal)? @ -Differential Seizure: Recurrent seizure disorder, febrile seizure, alcohol withdrawal, stimulants, me ningitis, encephalitis, intercranial hemorrhage, intracranial tumor, stroke, eclampsia, thyrotoxicosis, hypocalcemia, hyponatremia, hypernatremia, hypomagnesemia, psychogenic, this is not meant to be an all-inclusive list. EKG interpreted by me (3pts min.). @ -EKG at 1552 shows sinus rhythm with sinus arrhythmia rate of 91, AK 110, QRS 104, QTQTc [id number] X-rays interpreted by me (1pt min.). @ -None done CT interpreted by me (1pt min.). @ -CT brain reveals no acute intracranial process e U/S interpreted by me (1pt. min.). @ -None done What testing was considered but not performed or refused? (CT, X-rays, U/S, labs)? Why? @ -None What meds were considered but not given or refused? Why? @ -None Did you discuss the management of the patient with other professionals (professionals i.e. , PA, FURNITURE REPAIRER, lab, RT, psych nurse, clinical social work therapist, computer technologist, teacher, sanitation officer, employment evaluator/case manager)? Give summary @ -Management discussed with [facility] was accepting of the admission. Was smoking cessation discussed for >3mins.? @ -No Was critical care preformed (if so, how long)? @ -No Were there social determinants of health that impacted care today? How? (Homelessness, low income, unemployed, alcoholism, drug addiction, transportation, low edu. Level, literacy, decrease access to med. care, halfway, rehab)? @ -No Was there de-escalation of care discussed even if they declined (Discuss DNR or withdrawal of care, Hospice)? DNR status @ -No What co-morbidities impacted this encounter? (DM, HTN, Smoking, COPD, CAD, Cancer, CVA, ARF, Chemo, Hep., AIDS, mental health diagnosis, sleep apnea, morbid obesity)? @ -None Was patient admitted / discharged? Hospital course, mention meds given and route , prescriptions, significant lab abnormalities, going to OR and other pertinent info. @ -Admitted. Patient presented emergency department for evaluation of seizure and headache. Patient has a history of this in the past. He notes having a seizure earlier today.Laboratory studies obtained revealing leukocytosis at 20 likely related to the patient's recent vomiting and seizure. Hemoglobin stable at 15.7; CMP reveals hypokalemia with a potassium of 3.0 this is replaced IV. UA shows no evidence of infectious process. Negative for salicylates, acetaminophen, alcohol. Urine drug screen positive for opiates and marijuana. CT of the brain reveals no acute intracranial process. Patient was provided multiple doses of pain medication in the emergency department to help with his headache. He does report continued pain. He also reports continued nausea. He will be admitted for intractable headache and nausea with neurology consultation. Case was discussed with [facility] was accepted for admission. Case discussed with Dr. Harrison. Undiagnosed new problem with uncertain prognosis? @ -No Drug Therapy requiring intensive monitoring for toxicity (Heparin, Nitro, Insul in, Cardizem)? @ -No Were any procedures done? @ -No Diagnosis/symptom? @ -Seizure, intractable headache Acute, or Chronic, or Acute on Chronic? @ -Acute Uncomplicated (without systemic symptoms) or Complicated (systemic symptoms)? @ -Uncomplicated Side effects of treatment? @ -No Exacerbation, Progression, or Severe Exacerbation? @ -No Poses a threat to life or bodily function? How? (Chest pain, USA, SC, pneumonia, PE, COPD, DKA, ARF, appy, cholecystitis, CVA, Diverticulitis, Homicidal, Suicidal, threat to staff... and all critical care pts) @ -No - Lab Data Result diagrams: 06/15/24 04:21 06/15/24 04:21 Lab Results 06/13/24 06/13/24 06/13/24 Range/Units 15:35 15:35 16:12 WBC 20.26 H (4.50-10.00) 10*3/uL RBC 5.19 (4.40-5.60) 10*6/uL Hgb 15.7 (13.0-17.0) g/dL Hct 44.2 (39.6-50.0) % MCV 85.2 (80.0-97.0) fL MCH 30.3 (27.0-32.0) pg MCHC 35.5 (32.0-37.0) g/dL Plt Count 217 (140-440) 10*3/uL MPV 10.2 (9.5-12.2) fL Immature Gran % (Auto) 0.4 % Neutrophils % 88.5 % Lymphocytes % 4.4 % Monocytes % 6.6 % Eosinophils % 0.0 % Basophils % 0.1 % Immature Gran # 0.08 H (0.00-0.04) 10*3/uL Neutrophils # 17.91 H (1.80-7.70) 10*3/uL Lymphocytes # 0.90 (0.90-5.00) 10*3/uL Monocytes # 1.34 H (0.20-1.00) 10*3/uL Eosinophils # 0.01 L (0.04-0.35) 10*3/uL Basophils # 0.02 (0.00-0.10) 10*3/uL Manual Slide Review Performed Sodium 138 (137-145) mmol/L Potassium 3.0 L (3.5-5.1) mmol/L Chloride 103 (98-107) mmol/L Carbon Dioxide 18 L (22-30) mmol/L Anion Gap 17 mmol/L BUN 11 (9-20) mg/dL Creatinine 0.62 L (0.66-1.25) mg/dL Est GFR (CKD-EPI)AfAm >90 (>60 ml/min/1.73 sqM) Est GFR (CKD-EPI)NonAf >90 (>60 ml/min/1.73 sqM) Glucose 130 H (74-99) mg/dL Lactic Ac Sepsis Rflx Plasma Lactic Acid Bradford (0.7-2.0) mmol/L Calcium 10.1 (8.4-10.2) mg/dL Magnesium 1.9 (1.6-2.3) mg/dL Total Bilirubin 1.7 H (0.2-1.3) mg/dL AST 25 (17-59) U/L ALT 17 (4-49) U/L Alkaline Phosphatase 52 (38-126) U/L Total Protein 8.1 (6.3-8.2) g/dL Albumin 4.9 (3.5-5.0) g/dL Urine Color Yellow Urine Appearance Clear (Clear) Urine pH 6.0 (5.0-8.0) Ur Specific [place] 1.021 (1.001-1.035) Urine Protein Trace H (Negative) Urine Glucose (UA) Negative (Negative) Urine Ketones Negative (Negative) Urine Blood Negative (Negative) Urine Nitrite Negative (Negative) Urine Bilirubin Negative (Negative) Urine Urobilinogen <2.0 (<2.0) mg/dL Ur Leukocyte Esterase Negative (Negative) Salicylates <1.0 mg/dL Urine Opiates Screen Detected H (NotDetected) Ur Oxycodone Screen Not Detected (NotDetected) Urine Methadone Screen Not Detected (NotDetected) Acetaminophen <10.0 ug/mL Ur Barbiturates Screen Not Detected (NotDetected) U Tricyclic Antidepress Not Detected (NotDetected) Ur Phencyclidine Scrn Not Detected (NotDetected) Ur Amphetamines Screen Not Detected (NotDetected) U Methamphetamines Scrn Not Detected (NotDetected) U Benzodiazepines Scrn Not Detected (NotDetected) Urine Cocaine Screen Not Detected (NotDetected) U Marijuana (THC) Screen Detected H (NotDetected) Serum Alcohol <10 mg/dL 06/13/24 06/13/24 Range/Units 16:35 17:01 WBC (4.50-10.00) 10*3/uL RBC (4.40-5.60) 10*6/uL Hgb (13.0-17.0) g/dL Hct (39.6-50.0) % MCV (80.0-97.0) fL MCH (27.0-32.0) pg MCHC (32.0-37.0) g/dL Plt Count (140-440) 10*3/uL MPV (9.5-12.2) fL Immature Gran % (Auto) % Neutrophils % % Lymphocytes % % Monocytes % % Eosinophils % % Basophils % % Immature Gran # (0.00-0.04) 10*3/uL Neutrophils # (1.80-7.70) 10*3/uL Lymphocytes # (0.90-5.00) 10*3/uL Monocytes # (0.20-1.00) 10*3/uL Eosinophils # (0.04-0.35) 10*3/uL Basophils # (0.00-0.10) 10*3/uL Manual Slide Review Sodium (137-145) mmol/L Potassium (3.5-5.1) mmol/L Chloride (98-107) mmol/L Carbon Dioxide (22-30) mmol/L Anion Gap mmol/L BUN (9-20) mg/dL Creatinine (0.66-1.25) mg/dL Est GFR (CKD-EPI)AfAm (>60 ml/min/1.73 sqM) Est GFR (CKD-EPI)NonAf (>60 ml/min/1.73 sqM) Glucose (74-99) mg/dL Lactic Ac Sepsis Rflx Y Plasma Lactic Acid Bradford 3.1 H* (0.7-2.0) mmol/L Calcium (8.4-10.2) mg/dL Magnesium (1.6-2.3) mg/dL Total Bilirubin (0.2-1.3) mg/dL AST (17-59) U/L ALT (4-49) U/L Alkaline Phosphatase (38-126) U/L Total Protein (6.3-8.2) g/dL Albumin (3.5-5.0) g/dL Urine Color Urine Appearance (Clear) Urine pH (5.0-8.0) Ur Specific [place] (1.001-1.035) Urine Protein (Negative) Urine Glucose (UA) (Negative) Urine Ketones (Negative) Urine Blood (Negative) Urine Nitrite (Negative) Urine Bilirubin (Negative) Urine Urobilinogen (<2.0) mg/dL Ur Leukocyte Esterase (Negative) Salicylates mg/dL Urine Opiates Screen (NotDetected) Ur Oxycodone Screen (NotDetected) Urine Methadone Screen (NotDetected) Acetaminophen ug/mL Ur Barbiturates Screen (NotDetected) U Tricyclic Antidepress (NotDetected) Ur Phencyclidine Scrn (NotDetected) Ur Amphetamines Screen (NotDetected) U Methamphetamines Scrn (NotDetected) U Benzodiazepines Scrn (NotDetected) Urine Cocaine Screen (NotDetected) U Marijuana (THC) Screen (NotDetected) Serum Alcohol mg/dL Disposition Clinical Impression: Seizure, Intractable headache, Hypokalemia Disposition: ADMITTED IP TO THIS [facility] Condition: Stable Is patient prescribed a controlled substance at d/c from ED?: No
[2024-06-13 15:51] LABS: Basophils # (A) 0.02 10*3/uL (0.00-0.10); Basophils % (A) 0.1 %; Eosinophils # (A) 0.01 10*3/uL (0.04-0.35); HCT 44.2 % (39.6-50.0); HGB 15.7 g/dL (13.0-17.0); Lymphocytes % (A) 4.4 %; MCH 30.3 pg (27.0-32.0); MCHC 35.5 g/dL (32.0-37.0); MCV 85.2 fL (80.0-97.0); Mean Platelet Volume 10.2 fL (9.5-12.2); Monocytes # (A) 1.34 10*3/uL (0.20-1.00); Monocytes % (A) 6.6 %; Neutrophils # (A) 17.91 10*3/uL (1.80-7.70); Neutrophils % (A) 88.5 %; RBC 5.19 10*6/uL (4.40-5.60); RDW 12.9 % (11.5-14.5); WBC 20.26 10*3/uL (4.50-10.00)
[2024-06-13 16:07] LABS: ALT 17 U/L (4-49); AST 25 U/L (17-59); Acetaminophen <10.0 ug/mL; African American GFR (CKD) >90 (>60 ml/min/1.73 sqM); Albumin 4.9 g/dL (3.5-5.0); Alcohol <10 mg/dL; Alkaline Phosphatase 52 U/L (38-126); Anion Gap 17 mmol/L; Blood Urea Nitrogen 11 mg/dL (9-20); Calcium 10.1 mg/dL (8.4-10.2); Carbon Dioxide 18 mmol/L (22-30); Chloride 103 mmol/L (98-107); Glucose 130 mg/dL (74-99); Magnesium 1.9 mg/dL (1.6-2.3); Non-African American GFR(CKD) >90 (>60 ml/min/1.73 sqM); Salicylate <1.0 mg/dL; Sodium 138 mmol/L (137-145); Total Bilirubin 1.7 mg/dL (0.2-1.3); Total Protein 8.1 g/dL (6.3-8.2)
--- NOTE | 2024-06-13 16:16 | CT ---
EXAMINATION TYPE: CT brain wo con DATE OF EXAM: 06/13/2024 4:09 PM COMPARISON: Previous CT study 12/26/2023. CLINICAL INDICATION: Male, 48 years old with history of seizure activity, seizure TECHNIQUE: Brain: Axial CT images of the brain were obtained with coronal and sagittal reformats created and rev iewed. Contrast used: None. Oral contrast used: None. CT DLP: 1178.8 mGycm, Automated exposure control for dose reduction was used. FINDINGS: Brain: Extra-axial spaces: No abnormal extra-axial fluid collections. Ventricular system: Within normal limits Cerebral parenchyma: No acute intraparenchymal hemorrhage or mass effect. The conte-white junction is well differentiated. Redemonstration of left middle cranial fossa/left temporal lobe region of CSF attenuation measuring approximately 2.4 x 1.9 cm, not significantly changed from previous study. Left -sided approach percutaneous catheter with reservoir terminating in stable positioning Cerebellum: Unremarkable. Mass effect: No evidence of midline shift. Intracranial vasculature: unremarkable Soft tissues: Normal. Calvarium/osseous structures: No depressed skull fracture. Paranasal sinuses and mastoid air cells: Mild scattered paranasal sinus disease. Visualized orbits: Orbital contents are intact. IMPRESSION: No acute intracranial process. [facility], , 06/13/2024 4:14 PM
[2024-06-13 16:20] LABS: Appearance,Urine Clear (Clear); Bilirubin,Urine Negative (Negative); Blood,Urine Negative (Negative); Color,Urine Yellow; Glucose,Urine (UA) Negative (Negative); Ketones,Urine Negative (Negative); Leukocyte Esterase,Urine Negative (Negative); Nitrite,Urine Negative (Negative); Protein,Urine Trace (Negative); Specific Gravity,Urine 1.021 (1.001-1.035); Urobilinogen,Urine <2.0 mg/dL (<2.0)
[2024-06-13 16:25] LABS: Platelet Count 217 10*3/uL (140-440)
[2024-06-13 16:30] LABS: Amphetamine Screen,Urine Not Detected (NotDetected); Barbiturate Screen,Urine Not Detected (NotDetected); Benzodiazepines Screen,Urine Not Detected (NotDetected); Cocaine Screen,Urine Not Detected (NotDetected); Methadone Screen, Urine Not Detected (NotDetected); Opiate Screen,Urine Detected (NotDetected); Oxycodone Screen, Urine Not Detected (NotDetected); Phencyclidine Screen,Urine Not Detected (NotDetected); Tricyclic Antidepressant,Urine Not Detected (NotDetected); Urn Cannabinoid Scrn Detected (NotDetected)
[2024-06-13] MEDS: SODIUM CHLORIDE 0.9% 1,000 ML IV STA (16:34)
[2024-06-13] MEDS: ONDANSETRON 4 MG/2 ML VIAL IVP STA (17:14)
[2024-06-13] MEDS: KETOROLAC 15 MG/ML 1 ML VIAL IVP STA (17:15)
[2024-06-13] MEDS: PROCHLORPERAZINE INJ 10 MG/2 ML VIAL IVP STA (17:58)
[2024-06-13] MEDS: HYDROmorphone 0.5 MG/0.5 ML SYRINGE IVP STA ×2 (17:59→19:27)
[2024-06-13] MEDS: diphenhydrAMINE 50 MG/ML 1 ML VIAL IVP STA (18:00)
[2024-06-13] MEDS: POTASSIUM CHLORIDE ER 20 MEQ TAB.ER PO STA (19:22)
[2024-06-13] MEDS: levETIRAcetam IV 500 MG/5 ML VIAL IVP STA (19:28)
[2024-06-13] MEDS ORDERED: NALOXONE 0.4 MG/ML 1 ML VIAL IV PRN (19:43)
[2024-06-13] MEDS ORDERED: HYDROmorphone 1 MG/ML 1 ML SYRINGE IVP PRN (19:43)
[2024-06-13] MEDS ORDERED: PROCHLORPERAZINE 5 MG TAB PO PRN (19:43)
[2024-06-13] MEDS ORDERED: ONDANSETRON 4 MG/2 ML VIAL IVP PRN (19:43)
[2024-06-13] MEDS: POTASSIUM CHLORIDE 10 MEQ in WATER FOR INJECTION 1 100ML.BAG IVPB SCH (20:29)
[2024-06-13] MEDS: SODIUM CHLORIDE 0.9% 1,000 ML IV SCH (20:29)
[2024-06-13] MEDS: POTASSIUM BICARBONATE/CIT AC 20 MEQ TABLET.EFF PO ONE (20:34)
[2024-06-14] MEDS: HYDROmorphone 0.5 MG/0.5 ML SYRINGE IVP PRN (00:25)
[2024-06-14] MEDS ORDERED: HYDROmorphone 2 MG/ML 1 ML SYRINGE IVP PRN (00:47)
[2024-06-14] MEDS ORDERED: LORazepam 1 MG/0.5 ML VIAL IV PRN (00:50)
[2024-06-14] MEDS: KETOROLAC 15 MG/ML 1 ML VIAL IVP PRN (01:45)
[2024-06-14 07:51] LABS: ALT 12 U/L (4-49); AST 15 U/L (17-59); African American GFR (CKD) >90 (>60 ml/min/1.73 sqM); Albumin 3.7 g/dL (3.5-5.0); Albumin/Globulin Ratio 1.4; Alkaline Phosphatase 37 U/L (38-126); Anion Gap 9 mmol/L; Blood Urea Nitrogen 11 mg/dL (9-20); Calcium 9.1 mg/dL (8.4-10.2); Carbon Dioxide 19 mmol/L (22-30); Chloride 108 mmol/L (98-107); Globulin 2.7 g/dL; Glucose 104 mg/dL (74-99); Non-African American GFR(CKD) >90 (>60 ml/min/1.73 sqM); Potassium 3.3 mmol/L (3.5-5.1); Sodium 136 mmol/L (137-145); Total Bilirubin 1.5 mg/dL (0.2-1.3); Total Protein 6.4 g/dL (6.3-8.2)
[2024-06-14] MEDS: PANTOPRAZOLE 40 MG/10 ML VIAL IVP SCH (08:33)
[2024-06-14] MEDS: 0.9% NACL WITH KCL 20 MEQ/L 1,000 ML IV SCH (08:33)
[2024-06-14] MEDS: acetaZOLAMIDE 250 MG TAB PO SCH (08:33)
[2024-06-14 09:09] LABS: Basophils # (A) 0.01 X 10*3/uL (0.00-0.10); Basophils % (A) 0.1 %; Eosinophils # (A) 0 X 10*3/uL (0.04-0.35); Eosinophils % (A) 0 %; HCT 39.9 % (39.6-50.0); HGB 13.3 g/dL (13.0-17.0); Lymphocytes # (A) 1.63 X 10*3/uL (0.90-5.00); Lymphocytes % (A) 11.2 %; MCH 29.3 pg (27.0-32.0); MCHC 33.3 g/dL (32.0-37.0); MCV 87.9 FL (80.0-97.0); Mean Platelet Volume 10.7 FL (9.5-12.2); Monocytes # (A) 1.56 X 10*3/uL (0.20-1.00); Monocytes % (A) 10.7 %; NRBC Per 100 WBC 0 X 10*3/uL (0.00-0.01); Neutrophils # (A) 11.34 X 10*3/uL (1.80-7.70); Neutrophils % (A) 77.5 %; Platelet Count 246 X 10*3/uL (140-440); RBC 4.54 X 10*6/uL (4.40-5.60); RDW 13.2 % (11.5-14.5); WBC 14.61 X 10*3/uL (4.50-10.00)
--- NOTE | 2024-06-14 09:11 | P.HPIM ---
History of Present Illness H&P Date: 06/14/24 Chief Complaint: intractable headache/new onset seizure HISTORY OF PRESENT ILLNESS: This is a 48-year-old male with a previous medical history significant for underlying sleep apnea that has not been evaluated yet was supposed to go for sleep study as an outpatient, restless leg syndrome, mixed hyperlipidemia not taking his Lipitor anxiety at this point in time, history of arachnoid cyst status post GENERAL ASSEMBLER INSTALLER shunt placement back in [place] [address] Davila, with recurrent intractable headache with possible seizure activity according to the patient patient has been evaluated in multiple institution he spent 2 weeks at [facility] without any relief, he was seen by neurosurgery and then he went to [facility] for 6 weeks, and he was diagnosed with the pseudotumor cerebri he was placed on acetazolamide 2000 mg orally twice every day, patient has been doing fine with this, he has been getting opioid on and off for the treatment of intractable headache, he went to the [facility] last Friday had multiple laboratory testing and he was supposed to follow-up with the neurosurgeon at the beginning of July of this year, patient was in his usual state of health at about yesterday at around 3:00 in the afternoon when he was sitting up all of a sudden developed to have a significant headache, patient stated that he has been getting some THC Gummies to try to help with the pain, his urine drug screen showed evidence of cannabis as well as opioids, patient was not given any prescription of pain medicine by myself, patient suddenly his arm flexed and the patient became unresponsive according to the father who was at the bedside he had an episode of seizure without any convulsion he thought it was a [place] seizure, patient was brought into the ER by EMS, he had a CT scan brain did not show evidence of acute abnormalities, his vital signs were okay, he was hypokalemic, he did receive potassium supplement, he was started on IV fluid resuscitation, he was started on Dilaudid for pain control as well as Fioricet, he was given Toradol for pain control without any relief, he was admitted to hospital for evaluation by neurology, REVIEW OF SYSTEMS: Constitutional: No documented fever, no chills, no night sweats. No weight change. No weakness, fatigue or lethargy. No daytime sleepiness. EENT: positive for headache. No blurred vision or double vision, no loss of vision. No loss of Hearing, no ringing in the ears, no dizziness. No nasal drainage or congestion. No epistaxis. No sore throat. Lungs: No shortness of breath, no cough, no sputum production. No wheezing. Reports dyspnea with activity. Cardiovascular: No chest pain, no lower extremity edema. No palpitations. No paroxysmal nocturnal dyspnea. No orthopnea. No lightheadedness or dizziness. No syncopal episodes. Abdominal: Reports o abdominal pain. positive for nausea, vomiting. No diarrhea. No constipation. No bloody or tarry stools reports loss of appetite. Genitourinary: No dysuria, increased frequency, urgency. No urinary retention. Musculoskeletal: No myalgias. No muscle weakness, no gait dysfunction, no frequent falls. No back pain. No neck pain. Integumentary: No wounds, no lesions. No rash or pruritus. No unusual bruising. No change in hair or nails. Neurologic: No aphasia. No facial droop. No change in mentation. No head injury. positive for headache. No paralysis. No paresthesia, possible abscense seizure Psychiatric: No depression. No anxiety. No mood swings. Endocrine: No abnormal blood sugars. No weight change. PAST MEDICAL HISTORY: Mixed hyperlipidemia. Obstructive sleep apnea. Restless leg syndrome. Arachnoid cyst status post GENERAL ASSEMBLER INSTALLER shunt in May [address] Davila. Pseudotumor cerebri. PAST SURGICAL HISTORY: GENERAL ASSEMBLER INSTALLER shunt for arachnoid cyst May 2019 Left ankle dislocation status post ORIF 1999 SOCIAL HISTORY: Patient denies a history of smoking, he denies any history of drinking, he uses recreational marijuana, and he gets opioid not from my prescription. FAMILY HISTORY: Father is alive 72-year-old with a history of hypertension, hyperlipidemia, pulm embolism, history of significant spondylosis of the thoracic and lumbar spine status post multiple surgical intervention with a chronic pain syndrome, mother is 59-year-old with no health issues, patient has half brother who is okay and a sister who is okay. PHYSICAL EXAMINATION: General: 48-year-old male in out of bed in no apparent distress. HEENT: Head is atraumatic, normocephalic, pupils were equal round reactive to light and recommendation, extraocular muscle movement were intact, sclera nonicteric, conjunctivae were pale, mucous membranes of the mouth are somewhat dry. Neck: Supple, no JVP, normal carotid upstroke bilaterally, no lymphadenopathy. Chest: Decreased breath sounds at the bases, few rhonchi, no expiratory wheezes, no chest wall tenderness, no intercostal retractions. Heart: First heart sound is normal, second heart sounds normal there is no gallop or murmur no rubs or heaves. Abdomen: Soft, nontender, nondistended, positive bowel sounds. Extremities: There is no edema no calf tenderness DP +2 bilaterally. Neurologic examination: Patient is awake alert and oriented x 3, cranial nerves II-12 appear grossly intact, muscle power were 5 out of 5 in upper extremities and 5 out of 5 in bilateral lower extremities, deep tendon reflexes normal bilaterally. ASSESSMENT AND PLAN: 1. Intractable headache likely due to pseudotumor cerebri. Restart the patient back on his acetazolamide to 2000 mg orally twice every day, continue current pain management, continue Toradol, continue Dilaudid as needed, neurology consultation appreciated, patient is scheduled to go to [facility] in July to follow-up with the neurosurgeon, he was there on Friday, and he had a battery of blood test the results still pending the time of dictation patient also was evaluated at [facility] for 6 weeks, and [facility] for 2 weeks. 2. Possible absence seizure. Will obtain EEG, neurology consultation, patient did receive 1 dose of Keppra in the ER. 3. Hypokalemia status post replacement. Patient will be given another potassium chloride 40 mill equivalent x 1, start the patient on normal saline with 20 KCl at 75 cc an hour. 4. Pseudotumor cerebri. Continue patient on acetazolamide 2000 mg orally twice every day. Follow-up with the neurosurgery at the [facility]. For e valuation of his old GENERAL ASSEMBLER INSTALLER shunt. 5. History of obstructive sleep apnea. Patient was supposed to do sleep study as an outpatient it has not been done yet. 6. Restless leg syndrome. Appears to be stable at this time. Check vitamin D level. 7. Mixed hyperlipidemia patient was supposed to be on atorvastatin 40 mg once every day as well as at 80 mg once every day he has not been taking those med ication at this time. 8. DVT prophylaxis. Early ambulation and bilateral knee-high OPAL hose. 9. GI prophylaxis. Continue patient on Protonix 40 mg IV push every 24 hours. 10. Admit to inpatient. Estimated length of stay 2 midnights. 11. Patient is full code. 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 spinal tap 12/25/2023 History of Any Multi-Drug Resistant Organisms: None Reported Past Surgical History: Orthopedic Surgery Additional Past Surgical History / Comment(s): brain shunt replaced in 2019, plate in left lower leg secondary to fracture Past Anesthesia/Blood Transfusion Reactions: No Reported Reaction, Motion Sickness Past Psychological History: No Psychological Hx Reported Smoking Status: Former smoker Past Alcohol Use History: None Reported Additional Past Alcohol Use History / Comment(s): quit smoking over 10 yrs ago - smoked about one ppd for about 20 yrs Past Drug Use History: Marijuana Additional Drug Use History / Comment(s): pt reports no marijuana in 9 months - Past Family History Father Additional Family Medical History / Comment(s): heart issues, neck and back issues Medications and Allergies Home Medications Medication Instructions Recorded Confirmed Type acetaZOLAMIDE [Diamox] 1,000 mg PO BID 06/13/24 06/13/24 History Allergies Allergy/AdvReac Type Severity Reaction Status Date / Time No Known Allergies Allergy Verified 06/13/24 18:04 Physical Exam Vitals: Vital Signs Temp Pulse Pulse Resp BP BP Pulse Ox 06/14/24 02:00 98.1 F 60 16 138/77 98 06/14/24 00:11 97.7 F 63 16 135/79 100 06/13/24 23:36 67 18 124/62 99 06/13/24 21:29 98.7 F 53 L 18 111/69 99 06/13/24 18:06 58 L 16 148/78 99 06/13/24 17:19 98.3 F 61 18 129/92 100 06/13/24 15:14 76 17 80/41 100 Intake and Output 06/13/24 06/13/24 06/14/24 14:59 22:59 06:59 Intake Total 1200 Output Total 1600 Balance -400 Intake: Oral 1200 Output: Urine 1600 Other: Voiding Method Urinal Weight 81.647 kg 81.647 kg Results CBC & Chem 7: 04/20/25 15:35 06/14/24 07:09 Labs: Abnormal Lab Results - Last 24 Hours (Table) 06/13/24 06/13/24 06/13/24 Range/Units 15:35 15:35 16:12 WBC 20.26 H (4.50-10.00) 10*3/uL Immature Gran # 0.08 H (0.00-0.04) 10*3/uL Neutrophils # 17.91 H (1.80-7.70) 10*3/uL Monocytes # 1.34 H (0.20-1.00) 10*3/uL Eosinophils # 0.01 L (0.04-0.35) 10*3/uL Potassium 3.0 L (3.5-5.1) mmol/L Carbon Dioxide 18 L (22-30) mmol/L Creatinine 0.62 L (0.66-1.25) mg/dL Glucose 130 H (74-99) mg/dL Plasma Lactic Acid Bradford (0.7-2.0) mmol/L Total Bilirubin 1.7 H (0.2-1.3) mg/dL Urine Protein Trace H (Negative) Urine Opiates Screen Detected H (NotDetected) U Marijuana (THC) Screen Detected H (NotDetected) 06/13/24 Range/Units 16:35 WBC (4.50-10.00) 10*3/uL Immature Gran # (0.00-0.04) 10*3/uL Neutrophils # (1.80-7.70) 10*3/uL Monocytes # (0.20-1.00) 10*3/uL Eosinophils # (0.04-0.35) 10*3/uL Potassium (3.5-5.1) mmol/L Carbon Dioxide (22-30) mmol/L Creatinine (0.66-1.25) mg/dL Glucose (74-99) mg/dL Plasma Lactic Acid Bradford 3.1 H* (0.7-2.0) mmol/L Total Bilirubin (0.2-1.3) mg/dL Urine Protein (Negative) Urine Opiates Screen (NotDetected) U Marijuana (THC) Screen (NotDetected) Thrombosis Risk Factor Assmnt - Choose All That Apply Any of the Below Risk Factors Present?: Yes Each Factor Represents 1 point: Age 41-60 years, Obesity (BMI >25) Other Risk Factors: No Thrombosis Risk Factor Assessment Total Risk Factor Score: 2 Thrombosis Risk Factor Assessment Level: Low Risk
[2024-06-14 09:14] LABS: BUN/Creat Ratio 15.67 Ratio (12.00-20.00); Blood Urea Nitrogen 9.4 mg/dL (9.0-27.0); Calcium 8.9 mg/dL (8.7-10.3); Chloride 108 mmol/L (96-109); Glucose 111 mg/dL (70-110); Potassium 3.4 mmol/L (3.5-5.5); Sodium 139 mmol/L (135-145)
[2024-06-14] MEDS: POTASSIUM CHLORIDE ER 20 MEQ TAB.ER PO STA (09:24)
--- NOTE | 2024-06-14 11:10 | P.CNNES ---
History of Present Illness Consult date: 06/14/24 Requesting physician: Sophie Deleon Reason for Consult: seizure History of Present Illness: This is a 48-year-old gentleman with history of seizure, arachnoid cyst status post shunt and his last revision was 2019, severe left vision loss who presents the emergency department because of seizure-like activity. He stated that yesterday he thinks in the afternoon around 2:00 he had seizure-like activity that he was notified by his father who lives with him. He stated that he was on the floor beside his desk and bed and does not recall what transpired but he did have urinary incontinence. His father notified him that he had seizure-like activity. Patient denies of any tongue bite, bowel incontinence. He stated th at prior to the event he was having headache the entire day. He does acknowledge that he does have a history of seizures and he had a seizure in December 2023 as well as January 2024 and had workup at an outside hospital in [place] and he stated that he had an EEG a couple days after the seizure and was normal. He is not on any antiseizure medication since was not placed on it and he stated that when he followed up at the hospital in [place] they did not feel it was seizures according to the patient. He stated that he is in the process of following up with a neurologist as an outpatient but he does follow- up with the neuro-development planner at [facility] and has an appointm ent with a neurosurgeon at [facility] in July 2024. He is in the process of following up with a neurologist over [facility]. He is on acetazolamide 250 mg 4 tablets in the morning and 4 tablets at night. He has underlying poor vision out of the left eye and was told by ophthalmology as an outpatient that he had optic edema and as a result he was placed on acetazolamide. Patient is feeling much better compared to yesterday. Patient states that he has chronic numbness of upper and lower extremity from waist down and also worsening numbness in the upper extremity as well as face and it is due to his acetazolamide and his ophthalmology team is aware of the side effects and they told him to continue it according the patient. Some of the workup during this hospital visit consisted of: Patient is afebrile. Plasma lactic acid vein is 3.1 and repeat is 2.0. I reviewed the rest of the lab workup and Urine drug screen is positive for marijuana as well as opiates. CT head is reported as no acute intracranial process. I personally reviewed the CT and agree with the report. Review of Systems As per HPI. 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 spinal tap 12/25/2023 History of Any Multi-Drug Resistant Organisms: None Reported Past Surgical History: Orthopedic Surgery Additional Past Surgical History / Comment(s): brain shunt replaced in 2019, plate in left lower leg secondary to fracture Past Anesthesia/Blood Transfusion Reactions: No Reported Reaction, Motion Sickness Past Psychological History: No Psychological Hx Reported Smoking Status: Former smoker Past Alcohol Use History: None Reported Additional Past Alcohol Use History / Comment(s): quit smoking over 10 yrs ago - smoked about one ppd for about 20 yrs Past Drug Use History: Marijuana Additional Drug Use History / Comment(s): pt reports no marijuana in 9 months - Past Family History Father Additional Family Medical History / Comment(s): heart issues, neck and back issues Medications and Allergies Home Medications Medication Instructions Recorded Confirmed Type acetaZOLAMIDE [Diamox] 1,000 mg PO BID 06/13/24 06/13/24 History Allergies Allergy/AdvReac Type Severity Reaction Status Date / Time No Known Allergies Allergy Verified 06/13/24 18:04 Physical Examination - Vital Signs Vital Signs: Vital Signs Temp Pulse Pulse Resp BP BP Pulse Ox 06/14/24 07:49 100 06/14/24 07:07 98 F 67 18 94/55 99 06/14/24 02:00 98.1 F 60 16 138/77 98 06/14/24 00:11 97.7 F 63 16 135/79 100 06/13/24 23:36 67 18 124/62 99 06/13/24 21:29 98.7 F 53 L 18 111/69 99 06/13/24 18:06 58 L 16 148/78 99 06/13/24 17:19 98.3 F 61 18 129/92 100 06/13/24 15:14 76 17 80/41 100 Intake and Output 0406/14/24 06/14/24 22:59 06:59 14:59 Intake Total 1200 Output Total 1600 Balance -400 Intake: Oral 1200 Output: Urine 1600 Other: Voiding Method Urinal Urinal Weight 81.647 kg 81.647 kg GENERAL: The patient is lying in bed and is not in acute distress. HENT: Has old scar on the left side. NEUROLOGICAL: Higher mental function: The patient is awake, alert, oriented to self, place and time. Patient is following commands. No aphasia and no neglect. Cranial nerves: The patient has his left eye closed and he states when he opens his left eye he has double vision and that is chronic. The pupils are round, equal and reactive to light and accommodation. Visual redman are full to confrontation on the right but see shadows on the left eye (states old). xtraocular movement is intact no nystagmus is noted. Facial sensation is normal to touch throughout. The facial strength is normal throughout. Hearing is normal bilaterally to hand rub. Tongue is midline and moved [id number] without any difficulty. No dysarthria is noted. Shoulder shrug is normal bilaterally. Motor: The strength is 5 over 5 throughout. Normal tone and bulk. Cerebellum: Normal finger to nose heel to phillips bilaterally. Sensation: Sensation is normal to touch throughout. Plantars are seizure bilaterally. Results - Laboratory Findings CBC and BMP: 06/14/24 04:41 06/14/24 07:09 Abnormal Lab Findings: Abnormal Labs 06/13/24 06/13/24 06/13/24 15:35 15:35 16:12 WBC 20.26 H Immature Gran # 0.08 H Neutrophils # 17.91 H Monocytes # 1.34 H Eosinophils # 0.01 L Sodium Potassium 3.0 L Chloride Carbon Dioxide 18 L Creatinine 0.62 L Glucose 130 H Plasma Lactic Acid Bradford Total Bilirubin 1.7 H AST Alkaline Phosphatase Urine Protein Trace H Urine Opiates Screen Detected H U Marijuana (THC) Screen Detected H 06/13/24 06/14/24 06/14/24 16:35 04:41 04:41 WBC 14.61 H Immature Gran # 0.07 H Neutrophils # 11.34 H Monocytes # 1.56 H Eosinophils # 0 L Sodium Potassium 3.4 L Chloride Carbon Dioxide 21.0 L Creatinine Glucose 111 H Plasma Lactic Acid Bradford 3.1 H* Total Bilirubin AST Alkaline Phosphatase Urine Protein Urine Opiates Screen U Marijuana (THC) Screen 06/14/24 07:09 WBC Immature Gran # Neutrophils # Monocytes # Eosinophils # Sodium 136 L Potassium 3.3 L Chloride 108 H Carbon Dioxide 19 L Creatinine 0.61 L Glucose 104 H Plasma Lactic Acid Bradford Total Bilirubin 1.5 H AST 15 L Alkaline Phosphatase 37 L Urine Protein Urine Opiates Screen U Marijuana (THC) Screen Assessment and Plan Assessment: This is a 48-year-old gentleman with history of arachnoid cyst status post shunt and his last revision was 2019, seizure and he had multiple seizures in the past and had workup in the past and was never placed on antiseizure medication at outside facility, very poor vision out of the left eye who presents the emergency department because of seizure-like activity Breakthrough seizure and is due to patient not being on antiseizure medication History of seizure and according to the patient he had 1 in December as well as January and he had an EEG a couple days after the seizure at an outside facility and according to the patient there was normal and the outside facility physician did not feel there were true seizures as a result was not placed on the seizure medication History of arachnoid cyst status post shunt History of 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 I started the patient on Keppra 500 mg every 12 hours Seizure precautions seizure pads Per the [place] DMV to avoid driving for 6 months until seizure-free, avoid heights, avoid swimming assisted or using heavy machinery Recommend the patient to follow-up with neurologist as an outpatient within 2 to 3 weeks. He is in the process of obtaining a neurologist at [facility]. Unable to follow-up with a neurologist anytime soon then in the meantime can follow-up with a local neurologist around [place] He follows up with development planner as an outpatient over at [facility] and the patient is on acetazolamide at 1000 mg in the morning and 1000 mg at night. He has a neurosurgery appointment over [facility] in July 2024. Please refer the rest of the medical management to primary and other specialist The plan discussed with the patient and his nurse Thank you for the consultation Time with Patient: Greater than 30
[2024-06-14] MEDS: levETIRAcetam 500 MG TAB PO SCH (11:58)
[2024-06-15 07:27] VITALS: BP 96/60; PULSE 72; RESP 16; TEMP 98.5
[2024-06-15 08:22] LABS: ALT 11 U/L (10-49); AST 12 U/L (14-35); Albumin 3.4 g/dL (3.8-4.9); Albumin/Globulin Ratio 1.55 Ratio (1.60-3.17); Alkaline Phosphatase 37 U/L (41-126); BUN/Creat Ratio 18.14 Ratio (12.00-20.00); Blood Urea Nitrogen 12.7 mg/dL (9.0-27.0); Calcium 8.5 mg/dL (8.7-10.3); Carbon Dioxide 18.6 mmol/L (21.6-31.8); Chloride 113 mmol/L (96-109); Globulin 2.2 g/dL (1.6-3.3); Glucose 95 mg/dL (70-110); Potassium 3.7 mmol/L (3.5-5.5); Sodium 140 mmol/L (135-145); Total Bilirubin 0.6 mg/dL (0.3-1.2); Total Protein 5.6 g/dL (6.2-8.2)
[2024-06-15 09:54] LABS: Basophils # (A) 0.05 X 10*3/uL (0.00-0.10); Basophils % (A) 0.8 %; Eosinophils # (A) 0.02 X 10*3/uL (0.04-0.35); Eosinophils % (A) 0.3 %; HCT 39.6 % (39.6-50.0); HGB 13.2 g/dL (13.0-17.0); Lymphocytes # (A) 1.97 X 10*3/uL (0.90-5.00); Lymphocytes % (A) 29.7 %; MCH 29.8 pg (27.0-32.0); MCHC 33.3 g/dL (32.0-37.0); MCV 89.4 FL (80.0-97.0); Mean Platelet Volume 10.9 FL (9.5-12.2); Monocytes % (A) 10.6 %; NRBC Per 100 WBC 0 X 10*3/uL (0.00-0.01); Neutrophils # (A) 3.87 X 10*3/uL (1.80-7.70); Neutrophils % (A) 58.3 %; Platelet Count 161 X 10*3/uL (140-440); RBC 4.43 X 10*6/uL (4.40-5.60); RBC Morphology Normal (Normal); RDW 13.3 % (11.5-14.5); WBC 6.63 X 10*3/uL (4.50-10.00)
[2024-06-15] MEDS: BUTALB/APAP/CAFF 50-325-40MG TAB PO PRN (12:05)
--- NOTE | 2024-06-15 12:50 | P.PN ---
Subjective Progress Note Date: 06/15/24 I am following-up with patient and no further seizure-like activity. No new neurological issues. Objective - Vital Signs Vital signs: Vital Signs Temp 98.5 F 06/15/24 07:06 Pulse 72 06/15/24 07:06 Resp 16 06/15/24 07:06 BP 96/60 06/15/24 07:06 Pulse Ox 99 06/15/24 07:06 FiO2 Intake & Output 06/14/24 06/15/24 06/15/24 18:59 06:59 18:59 Intake Total 900 540 Output Total 600 1550 Balance 300 -1010 Intake: Intake, IV Titration 900 Amount 0.9% NaCl with KCl 20 Meq 900 /l 1,000 ml @ 75 mls/hr IV .[id number] NAOMY Rx#: [id number] Oral 540 Output: Urine 600 1550 Other: Voiding Method Urinal Urinal Urinal - Exam GENERAL: The patient is lying in bed and is not in acute distress. HENT: Has old scar on the left side. NEUROLOGICAL: Higher mental function: The patient is awake, alert, oriented to self, place and time. Patient is following commands. No aphasia and no neglect. Cranial nerves: The patient has his left eye closed and he states when he opens his left eye he has double vision and that is chronic. The pupils are round, equal and reactive to light and accommodation. Visual redman are full to confrontation on the right but see shadows on the left eye (states old). xtrao cular movement is intact no nystagmus is noted. Facial sensation is normal to touch throughout. The facial strength is normal throughout. Hearing is normal bilaterally to hand rub. Tongue is midline and moved [id number] without any difficulty. No dysarthria is noted. Shoulder shrug is normal bilaterally. Motor: The strength is 5 over 5 throughout. Normal tone and bulk. Cerebellum: Normal finger to nose heel to phillips bilaterally. Sensation: Sensation is normal to touch throughout. Plantars are seizure bilaterally. Some of the workup during this hospital visit consisted of: Patient is afebrile. Plasma lactic acid vein is 3.1 and repeat is 2.0. I reviewed the rest of the lab workup and Urine drug screen is positive for marijuana as well as opiates. CT head is reported as no acute intracranial process. I personally reviewed the CT and agree with the report. - Labs CBC & Chem 7: 06/15/24 04:21 06/15/24 04:21 Labs: Abnormal Lab Results - Last 24 Hours (Table) 06/15/24 06/15/24 Range/Units 04:21 04:21 Eosinophils # 0.02 L (0.04-0.35) X 10*3/uL Chloride 113 H (96-109) mmol/L Carbon Dioxide 18.6 L (21.6-31.8) mmol/L Calcium 8.5 L (8.7-10.3) mg/dL AST 12 L (14-35) U/L Alkaline Phosphatase 37 L (41-126) U/L Total Protein 5.6 L (6.2-8.2) g/dL Albumin 3.4 L (3.8-4.9) g/dL Albumin/Globulin Ratio 1.55 L (1.60-3.17) Ratio Assessment and Plan Assessment: This is a 48-year-old gentleman with history of arachnoid cyst status post shunt and his last revision was 2019, seizure and he had multiple seizures in the past and had workup in the past and was never placed on antiseizure medication at outside facility, very poor vision out of the left eye who presents the emergency department because of seizure-like activity Breakthrough seizure and is due to patient not being on antiseizure medication History of seizure and according to the patient he had 1 in December as well as January and he had an EEG a couple days after the seizure at an outside facility and according to the patient there was normal and the outside facility physician did not feel there were true seizures as a result was not placed on the seizure medication History of arachnoid cyst status post shunt History of 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 I started the patient on Keppra 500 mg every 12 hours and so far tolerating the medication well. Seizure precautions seizure pads Per the [place] DMV to avoid driving for 6 months until seizure-free, avoid heights, avoid swimming assisted or using heavy machinery Recommend the patient to follow-up with neurologist as an outpatient within 2 to 3 weeks. He is in the process of obtaining a neurologist at [facility]. Unable to follow-up with a neurologist anytime soon then in the meantime can follow-up with a local neurologist around [place] He follows up with tile mason as an outpatient over at [facility] and the patient is on acetazolamide at 1000 mg in the morning and 1000 mg at night. He has a neurosurgery appointment over [facility] in July 2024. Please refer the rest of the medical management to primary and other specialist The plan discussed with the patient and his father who is at bedside. Otherwise no further neurological work-up. Will sign off. Please reconsult if needed. Time with Patient: Less than 30
== END 2024-06-15 12:14 | disposition home or self-care (01) ==
LOC: EC 15:12 → 5NMEDONC 19:45
PROVIDERS: ADMIT Internal Medicine; ATTEND Internal Medicine
DX: G40.909 Epilepsy, unspecified, not intractable, without status epilepticus (principal); G93.2 Benign intracranial hypertension; E87.6 Hypokalemia; E78.2 Mixed hyperlipidemia; G47.33 Obstructive sleep apnea (adult) (pediatric); G25.81 Restless legs syndrome; K21.9 Gastro-esophageal reflux disease without esophagitis; H54.62 Unqualified visual loss, left eye, normal vision right eye; F12.90 Cannabis use, unspecified, uncomplicated; Z86.69 Personal history of other diseases of the nervous system and sense organs; Z87.891 Personal history of nicotine dependence; Z98.2 Presence of cerebrospinal fluid drainage device; Z79.899 Other long term (current) drug therapy
CPT/HCPCS: 96376 ×2; 96366 ×3; 96375 ×2; 96365; 96374; 99285; 36415; 94760; 93005; 80053 ×3; 80048; 83605; 83735 ×2; 85025 ×3; 81003; 80306; 80143; 80320; 80179; 70450; G0378 ×3; J1200; J0780; J2405; J3480; J1953; J1885 ×3; J1171 ×3; J2470 ×2

== ENCOUNTER 2024-07-28 15:42 | Observation (INO) | payer BC, OTHER ==
--- NOTE | 2024-07-28 16:42 | ED ---
Headache HPI - General Chief Complaint: Headache Stated Complaint: NV, headache Time Seen by Provider: 07/28/24 16:05 Source: patient, RN notes reviewed Mode of arrival: ambulatory Limitations: no limitations - History of Present Illness Initial Comments: This is a 48-year-old male who presents to the emergency department for a headache. States that it is in the back and left side of his head and started a couple of hours prior to arrival. 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 Most recent revision was in 2019. He states that he occasionally gets flareups of severe headaches, which is what this feels like. States that he typically requires pain medication to get his symptoms under control. He has associated nausea and vomiting as well. MD Complaint: headache - Related Data Home Medications Medication Instructions Recorded Confirmed acetaZOLAMIDE [Diamox] 500 mg PO BID 06/13/24 07/28/24 Previous Rx's Medication Instructions Recorded levETIRAcetam [Keppra] 500 mg PO Q12HR #60 tab 06/15/24 Allergies Allergy/AdvReac Type Severity Reaction Status Date / Time No Known Allergies Allergy Verified 07/28/24 19:31 Review of Systems ROS Statement: Those systems with pertinent positive or pertinent negative responses have been documented in the HPI. ROS Other: All systems not noted in ROS Statement are negative. 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 spinal tap 12/25/2023 History of Any Multi-Drug Resistant Organisms: None Reported Past Surgical History: Orthopedic Surgery Additional Past Surgical History / Comment(s): brain shunt 2019, plate in left lower leg secondary to fracture Past Anesthesia/Blood Transfusion Reactions: No Reported Reaction, Motion Sickness Past Psychological History: No Psychological Hx Reported Smoking Status: Former smoker - Past Family History Father Additional Family Medical History / Comment(s): heart issues, neck and back issues General Exam Limitations: no limitations General appearance: alert, in no apparent distress Head exam: Present: atraumatic, normocephalic, normal inspection Respiratory exam: Present: normal lung sounds bilaterally. Absent: respiratory distress, wheezes, rales, rhonchi, stridor Cardiovascular Exam: Present: regular rate, normal rhythm Neurological exam: Present: alert, oriented X3, CN II-XII intact Psychiatric exam: Present: normal affect, normal mood Skin exam: Present: warm, dry, intact, normal color. Absent: rash Course Vital Signs 07/28/24 15:59 Temperature 97.5 F L Pulse Rate 64 Respiratory 20 Rate Blood Pressure 148/89 O2 Sat by Pulse 99 Oximetry Medical Decision Making - Medical Decision Making This is a 48 year old male who presents to the emergency department for a headache. Was pt. sent in by a medical professional or institution? @ -No Did you speak to anyone other than the patient for history? @ -No Did you review nursing and triage notes? @ -Yes, and I agree, it is accurate with regards to the patient's symptoms. Were old charts reviewed? @ -No Differential Diagnosis? @ -Differential Headache: Migraine, tension, cluster, carbon monoxide, central venous thrombosis, pension karma temporal arteritis, acute closure glaucoma, intercranial hemorrhage, masto iditis, sinusitis, head injury, this is not meant to be an all-inclusive list. EKG interpreted by me (3pts min.)? @ -Not obtained X-rays interpreted by me (1pt min.)? @ -Not obtained CT interpreted by me (1pt min.)? @ -CT scan of the brain obtained. My interpretation identifies no acute intracranial hemorrhage. U/S interpreted by me (1pt. min.)? @ -Not obtained What testing was considered but not performed? (CT, X-rays, U/S, labs)? Why? @ -None What meds were considered but not given? Why? @ -None Did you discuss the management of the patient with other professionals? @ -Yes, Sondra Brown with [facility], who accepts the patient for admission. Did you reconcile home meds? @ -Yes Was smoking cessation discussed for >3mins.? @ -No Was critical care preformed (if so, how long)? @ -No Were there social determinants of health that impacted care today? How? (Homelessness, low income, unemployed, alcoholism, drug addiction, transportation, low edu. Level, literacy, decrease access to med. care, long term, rehab)? @ -No Was there de-escalation of care discussed even if they declined? (Discuss DNR or withdrawal of care, Hospice)? @ -No What co-morbidities impacted this encounter? (DM, HTN, Smoking, COPD, CAD, Cancer, CVA, Hep., AIDS, mental health diagnosis, sleep apnea, morbid obesity)? @ -Arachnoid cyst Was patient admitted / discharged? @ -Admitted. Lab work demonstrates mild hypokalemia with a potassium of 3.1 and is otherwise unremarkable. 40 mEq of K-Dur administered. CT scan of the brain obtained revealing no acute process or problems with regards to the FIRE DEPARTMENT MARINE ENGINEER shunt. Patient was given multiple rounds of pain medication but continued to have severe pain. This has been an issue for him before requiring admission for intractable symptoms. Patient admitted to medicine for intractable headaches with consult placed to neurology. Discussed with ED attending Dr. High. Undiagnosed new problem with uncertain prognosis? @ -None Drug Therapy requiring intensive monitoring for toxicity (Heparin, Nitro, Insulin, Cardizem)? @ -None Were any procedures done? @ -None Diagnosis/symptom? @ -Intractable headache Acute, or Chronic, or Acute on Chronic? @ -Acute Uncomplicated (without systemic symptoms) or Complicated (systemic symptoms)? @ -Complicated Side effects of treatment? @ -None Exacerbation, Progression, or Severe Exacerbation] @ -Not applicable Poses a threat to life or bodily function? @ -Yes, patient unable to function in current state - Lab Data Result diagrams: 07/28/24 17:05 07/28/24 17:05 Lab Results 07/28/24 07/28/24 Range/Units 17:05 17:05 WBC 9.91 (4.50-10.00) 10*3/uL RBC 4.98 (4.40-5.60) 10*6/uL Hgb 15.0 (13.0-17.0) g/dL Hct 44.0 (39.6-50.0) % MCV 88.4 (80.0-97.0) fL MCH 30.1 (27.0-32.0) pg MCHC 34.1 (32.0-37.0) g/dL Plt Count 189 (140-440) 10*3/uL MPV 10.5 (9.5-12.2) fL Immature Gran % (Auto) 0.3 % Neutrophils % 86.9 % Lymphocytes % 9.0 % Monocytes % 3.3 % Eosinophils % 0.1 % Basophils % 0.4 % Immature Gran # 0.03 (0.00-0.04) 10*3/uL Neutrophils # 8.61 H (1.80-7.70) 10*3/uL Lymphocytes # 0.89 L (0.90-5.00) 10*3/uL Monocytes # 0.33 (0.20-1.00) 10*3/uL Eosinophils # 0.01 L (0.04-0.35) 10*3/uL Basophils # 0.04 (0.00-0.10) 10*3/uL Sodium 144 (137-145) mmol/L Potassium 3.1 L (3.5-5.1) mmol/L Chloride 113 H (98-107) mmol/L Carbon Dioxide 16 L (22-30) mmol/L Anion Gap 15 mmol/L BUN 13 (9-20) mg/dL Creatinine 0.85 (0.66-1.25) mg/dL Est GFR (CKD-EPI)AfAm >90 (>60 ml/min/1.73 sqM) Est GFR (CKD-EPI)NonAf >90 (>60 ml/min/1.73 sqM) Glucose 123 H (74-99) mg/dL Calcium 9.5 (8.4-10.2) mg/dL Magnesium 2.1 (1.6-2.3) mg/dL Total Bilirubin 0.6 (0.2-1.3) mg/dL AST 17 (17-59) U/L ALT 15 (4-49) U/L Alkaline Phosphatase 65 (38-126) U/L Total Protein 7.7 (6.3-8.2) g/dL Albumin 4.5 (3.5-5.0) g/dL - Radiology Data Radiology results: report reviewed, image reviewed Disposition Clinical Impression: Headache, Intractable pain Disposition: ADMITTED IP TO THIS HOSP
[2024-07-28 17:10] LABS: Basophils # (A) 0.04 10*3/uL (0.00-0.10); Basophils % (A) 0.4 %; Eosinophils # (A) 0.01 10*3/uL (0.04-0.35); Eosinophils % (A) 0.1 %; Lymphocytes # (A) 0.89 10*3/uL (0.90-5.00); MCH 30.1 pg (27.0-32.0); MCHC 34.1 g/dL (32.0-37.0); MCV 88.4 fL (80.0-97.0); Mean Platelet Volume 10.5 fL (9.5-12.2); Monocytes # (A) 0.33 10*3/uL (0.20-1.00); Monocytes % (A) 3.3 %; Neutrophils # (A) 8.61 10*3/uL (1.80-7.70); Neutrophils % (A) 86.9 %; Platelet Count 189 10*3/uL (140-440); RBC 4.98 10*6/uL (4.40-5.60); RDW 13.3 % (11.5-14.5); WBC 9.91 10*3/uL (4.50-10.00)
[2024-07-28] MEDS: diphenhydrAMINE 50 MG/ML 1 ML VIAL IVP STA (17:12)
[2024-07-28] MEDS: HYDROmorphone 1 MG/ML 1 ML SYRINGE IVP STA ×2 (17:13→18:06)
[2024-07-28] MEDS: ONDANSETRON 4 MG/2 ML VIAL IVP STA (17:13)
[2024-07-28] MEDS: KETOROLAC 15 MG/ML 1 ML VIAL IVP STA (17:14)
[2024-07-28] MEDS: DEXAMETHASONE SOD PHOSPHATE 10 MG/ML 1 ML VIAL IVP STA (17:15)
[2024-07-28 17:36] LABS: ALT 15 U/L (4-49); AST 17 U/L (17-59); African American GFR (CKD) >90 (>60 ml/min/1.73 sqM); Albumin 4.5 g/dL (3.5-5.0); Alkaline Phosphatase 65 U/L (38-126); Anion Gap 15 mmol/L; Blood Urea Nitrogen 13 mg/dL (9-20); Calcium 9.5 mg/dL (8.4-10.2); Carbon Dioxide 16 mmol/L (22-30); Chloride 113 mmol/L (98-107); Glucose 123 mg/dL (74-99); Magnesium 2.1 mg/dL (1.6-2.3); Non-African American GFR(CKD) >90 (>60 ml/min/1.73 sqM); Potassium 3.1 mmol/L (3.5-5.1); Sodium 144 mmol/L (137-145); Total Bilirubin 0.6 mg/dL (0.2-1.3); Total Protein 7.7 g/dL (6.3-8.2)
--- NOTE | 2024-07-28 18:02 | CT ---
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 Study is performed within 24 hours of arrival to the hospital. Contrast used: mL of , (none if empty) CT DLP: 1186.4 mGycm, Automated exposure control for dose reduction was used. FINDINGS: No abnormal hyperdensity is present to suggest an acute intracranial hemorrhage. No mass lesion is evident. No acute infarcts are evident. Ventricles and sulci are appropriate for the patient age. No temporal horn dilatation is evident. No significant hydrocephalus evident. No enlarging left middle cranial fossa fluid collection. Paranasal sinuses and mastoid air cells within the [id number] are clear. There is a catheter-like structure extending into the inferior left middle cranial fossa. This is sta ble from comparison. IMPRESSION: 1. No acute intracranial process. Follow up MRI can be performed as clinically indicated. 2. Stable appearance of left side device. [facility], , 07/28/2024 6:00 PM
[2024-07-28] MEDS: BUTALB/APAP/CAFF 50-325-40MG TAB PO STA (18:06)
[2024-07-28] MEDS ORDERED: NALOXONE 0.4 MG/ML 1 ML VIAL IV PRN (19:10)
[2024-07-28] MEDS: POTASSIUM CHLORIDE ER 20 MEQ TAB.ER PO STA (19:11)
[2024-07-28] MEDS: HYDROmorphone 1 MG/ML 1 ML SYRINGE IVP PRN (20:08)
[2024-07-28] MEDS: HYDROcodone/APAP 5-325MG 1 EACH TAB PO PRN (20:09)
[2024-07-28] MEDS: ONDANSETRON 4 MG/2 ML VIAL IVP PRN (20:11)
[2024-07-28] MEDS: levETIRAcetam 500 MG TAB PO SCH (20:55)
[2024-07-28] MEDS: acetaZOLAMIDE 250 MG TAB PO SCH (20:55)
[2024-07-28] MEDS: KETOROLAC 15 MG/ML 1 ML VIAL IVP PRN (21:53)
[2024-07-29] MEDS: PANTOPRAZOLE 40 MG/10 ML VIAL IV SCH (08:45)
[2024-07-29] MEDS: PROCHLORPERAZINE INJ 10 MG/2 ML VIAL IVP PRN (08:47)
[2024-07-29] MEDS: TOPIRAMATE 100 MG TAB PO SCH (11:37)
[2024-07-29] MEDS: levETIRAcetam IV 500 MG/5 ML VIAL IVP SCH (11:37)
--- NOTE | 2024-07-29 12:33 | P.HPIM ---
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 Patient said he was all right few hours prior to arrival when he started having headache which is located in the back and left side. Headache is constant, not associated with any any blurred vision. Patient complained of nausea and vomiting at this time. There is no complaint of weakness of any extremity. Patient denied any jerking movement of any extremity. Patient denies any fecal incontinence. Patient denies any light sensitivity, there is no complaint of fever or chills. Patient denies any recent trauma. Because of these headaches, patient came to the ER Initial lab work done in the ER showed WBC 9.91, hemoglobin 15, platelet count 189, sodium 144, potassium 3.1, BUN 13, creatinine 0.85, glucose 123, calcium 9.5, anything 2.1, bilirubin 0.6, AST 17, ALT 15, alk phos 65 CT head done showed no acute intracranial process Patient admitted to internal medicine service REVIEW OF SYSTEMS: CONSTITUTIONAL: No fever, no malaise, no fatigue. HEENT: No recent visual problems or hearing problems. Denied any sore throat. CARDIOVASCULAR: No chest pain, orthopnea, PND, no palpitations, no syncope. PULMONARY: No shortness of breath, no cough, no hemoptysis. GASTROINTESTINAL: No diarrhea, no nausea, no vomiting, no abdominal pain. NEUROLOGICAL: As mentioned above HEMATOLOGICAL: Denies any bleeding or petechiae. GENITOURINARY: Denies any burning micturition, frequency, or urgency. MUSCULOSKELETAL/RHEUMATOLOGICAL: Denies any joint pain, swelling, or any muscle pain. ENDOCRINE: Denies any polyuria or polydipsia. The rest of the 14-point review of systems is negative. PHYSICAL EXAMINATION: GENERAL: The patient is alert and oriented x3, not in any acute distress. Well developed, well nourished. HEENT: Pupils are round and equally reacting to light. EOMI. No scleral icterus. No conjunctival pallor. Normocephalic, atraumatic. No pharyngeal erythema. No thyromegaly. CARDIOVASCULAR: S1 and S2 present. No murmurs, rubs, or gallops. PULMONARY: Chest is clear to auscultation, no wheezing or crackles. ABDOMEN: Soft, nontender, nondistended, normoactive bowel sounds. No palpable organomegaly. MUSCULOSKELETAL: No joint swelling or deformity. EXTREMITIES: No cyanosis, clubbing, or pedal edema. NEUROLOGICAL: Gross neurological examination did not reveal any focal deficits. SKIN: No rashes. Assessment and plan Migraine intractable headache History of HEAD OPERATOR shunt Monitor vital signs Monitor CBC Monitor CMP Continue IV fluids Ordered antiemetics Ordered as needed Toradol Resume home meds Consult neurology Labs and medication were reviewed.. Continue same treatment. Continue with symptomatic treatment. Resume home medication. Monitor labs and vitals. DVT and GI prophylaxis. Further recommendations as per clinical course of the patient Dictation was produced using [employer] dictation software. please excuse any grammatical, word or spelling errors. 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 spinal tap 12/25/2023 History of Any Multi-Drug Resistant Organisms: None Reported Past Surgical History: Orthopedic Surgery Additional Past Surgical History / Comment(s): brain shunt 2019, plate in left lower leg secondary to fracture Past Anesthesia/Blood Transfusion Reactions: No Reported Reaction, Motion Sickness Past Psychological History: No Psychological Hx Reported Smoking Status: Former smoker Past Alcohol Use History: None Reported Additional Past Alcohol Use History / Comment(s): quit smoking over 10 yrs ago - smoked about one ppd for about 20 yrs Past Drug Use History: Marijuana Additional Drug Use History / Comment(s): pt reports no marijuana in 9 months - Past Family History Father Additional Family Medical History / Comment(s): heart issues, neck and back issues Medications and Allergies Home Medications Medication Instructions Recorded Confirmed Type acetaZOLAMIDE [Diamox] 500 mg PO BID 06/13/24 07/28/24 History levETIRAcetam [Keppra] 500 mg PO Q12HR #60 tab 06/15/24 07/28/24 Rx Allergies Allergy/AdvReac Type Severity Reaction Status Date / Time No Known Allergies Allergy Verified 07/28/24 19:31 Physical Exam Vitals: Vital Signs Temp Pulse Pulse Resp BP BP Pulse Ox 07/29/24 02:00 97.6 F 99 17 122/70 99 07/28/24 22:36 98.7 F 79 16 143/76 100 07/28/24 21:30 79 18 145/84 99 07/28/24 15:59 97.5 F L 64 20 148/89 99 Intake and Output 07/28/24 07/29/24 07/29/24 22:59 06:59 14:59 Other: Voiding Method Urinal Urinal # Voids 0 2 Weight 81.647 kg Results CBC & Chem 7: 07/28/24 17:05 07/28/24 17:05 Labs: Abnormal Lab Results - Last 24 Hours (Table) 07/28/24 07/28/24 Range/Units 17:05 17:05 Neutrophils # 8.61 H (1.80-7.70) 10*3/uL Lymphocytes # 0.89 L (0.90-5.00) 10*3/uL Eosinophils # 0.01 L (0.04-0.35) 10*3/uL Potassium 3.1 L (3.5-5.1) mmol/L Chloride 113 H (98-107) mmol/L Carbon Dioxide 16 L (22-30) mmol/L Glucose 123 H (74-99) mg/dL Thrombosis Risk Factor Assmnt - Choose All That Apply Each Factor Represents 1 point: Age 41-60 years Thrombosis Risk Factor Assessment Total Risk Factor Score: 1 Thrombosis Risk Factor Assessment Level: Low Risk
--- NOTE | 2024-07-29 13:24 | P.CNNES ---
History of Present Illness Consult date: 07/29/24 Requesting physician: Homa Cardenas Reason for Consult: intractable headache History of Present Illness: This is a 48-year-old gentleman with history of arachnoid cyst status post shunt, chronic cephalgia presents emergency department because of a headache. Patient's father is at bedside. Seems that he has been having ongoing headache for a while and gets a severe headache once every 3 weeks that lingers. He had extensive workup at [facility] then at [facility] for his headaches. He states the headache is over the entire left hemisphere and feels it is 9/10, throbbing, he does have nausea and vomiting as well as photophobia. It is constant. It has been going on for the past couple days. It is worse with movement. It is alleviated with Dilaudid. This headache is similar to the headaches she had in the past. He states that he does not have any focal deficit, visual disturbance, he does not have any speech difficulty he had revision of his shunt in 2019 at [facility]. He states that he has an appointment with [facility] neurology team August 09 2024. He is on acetazolamide 500 mg twice a day as well as Keppra 500 mg twice a day. The Keppra is for the history of seizure. Some of the workup during this hospital visit consisted of: I reviewed the lab workup. CT of the head is reported as no acute intracranial process. Stable appearance of the left-sided device. I personally reviewed the CT and I agree there is no acute or subacute process. Review of Systems As per HPI. 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 spinal tap 12/25/2023 History of Any Multi-Drug Resistant Organisms: None Reported Past Surgical History: Orthopedic Surgery Additional Past Surgical History / Comment(s): brain shunt 2019, plate in left lower leg secondary to fracture Past Anesthesia/Blood Transfusion Reactions: No Reported Reaction, Motion Sickness Past Psychological History: No Psychological Hx Reported Smoking Status: Former smoker Past Alcohol Use History: None Reported Additional Past Alcohol Use History / Comment(s): quit smoking over 10 yrs ago - smoked about one ppd for about 20 yrs Past Drug Use History: Marijuana Additional Drug Use History / Comment(s): pt reports no marijuana in 9 months - Past Family History Father Additional Family Medical History / Comment(s): heart issues, neck and back issues Medications and Allergies Home Medications Medication Instructions Recorded Confirmed Type acetaZOLAMIDE [Diamox] 500 mg PO BID 06/13/24 07/28/24 History levETIRAcetam [Keppra] 500 mg PO Q12HR #60 tab 06/15/24 07/28/24 Rx Allergies Allergy/AdvReac Type Severity Reaction Status Date / Time No Known Allergies Allergy Verified 07/28/24 19:31 Physical Examination - Vital Signs Vital Signs: Vital Signs Temp Pulse Pulse Resp BP BP Pulse Ox 07/29/24 07:00 98.2 F 70 16 153/67 100 07/29/24 02:00 97.6 F 99 17 122/70 99 07/28/24 22:36 98.7 F 79 16 143/76 100 07/28/24 21:30 79 18 145/84 99 07/28/24 15:59 97.5 F L 64 20 148/89 99 Intake and Output 07/28/24 07/29/24 07/29/24 22:59 06:59 14:59 Other: Voiding Method Urinal Urinal # Voids 0 2 Weight 81.647 kg General: Lying in bed and appear in moderate to severe acute distress. Neuro: Limited since thrashing in bed because of pain. Patient is awake alert oriented to self place and time. Is following simple commands. No aphasia Pupils are about 2 mm, round and reactive to light bilaterally. No facial weakness. No dysarthria. Motor: Could not assess individual muscle strength because unable to lay still. Was able to lift all extremities above gravity. Results - Laboratory Findings CBC and BMP: 07/28/24 17:05 07/28/24 17:05 Abnormal Lab Findings: Abnormal Labs 07/28/24 07/28/24 17:05 17:05 Neutrophils # 8.61 H Lymphocytes # 0.89 L Eosinophils # 0.01 L Potassium 3.1 L Chloride 113 H Carbon Dioxide 16 L Glucose 123 H Assessment and Plan Assessment: This is a 48-year-old gentleman with a history of arachnoid cysts status post shunt and had revision in 2019, chronic headache and gets a severe headache once every 3 weeks that lingers and had extensive workup at [facility] and [facility] who presents to the emergency department because of cepha lgia. Intracrable headache. Located over the left hemisphere. From limitation no focal deficit. Similar to his usual severe headache History of chronic headache. History of arachnoid cyst s/p shunt and revision last in 2019 History of seizure Plan: Patient is on Dilaudid as needed which helps with the headache. I started the patient on Topamax which helps with migraine headaches as well as has benefit of antiseizure medication I switched his Keppra from p.o. to IV since the patient was having nausea vomiting earlier morning. He is on 500 mg twice a day Patient acetazolamide 500 mg twice a day is resumed Will defer the rest of the medical management to the primary team. Upon discharge recommend the patient to follow-up with his appointment with [facility] neurology team. Thank you for the consultation Time with Patient: Greater than 30
[2024-07-29] MEDS: ONDANSETRON 4 MG/2 ML VIAL IVP PRN (23:06)
--- NOTE | 2024-07-30 12:43 | P.PN ---
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 Patient said he was all right few hours prior to arrival when he started having headache which is located in the back and left side. Headache is constant, not associated with any any blurred vision. Patient complained of nausea and vomiting at this time. There is no complaint of weakness of any extremity. Patient denied any jerking movement of any extremity. Patient denies any fecal incontinence. Patient denies any light sensitivity, there is no complaint of fever or chills. Patient denies any recent trauma. Because of these headaches, patient came to the ER Initial lab work done in the ER showed WBC 9.91, hemoglobin 15, platelet count 189, sodium 144, potassium 3.1, BUN 13, creatinine 0.85, glucose 123, calcium 9.5, anything 2.1, bilirubin 0.6, AST 17, ALT 15, alk phos 65 CT head done showed no acute intracranial process Patient admitted to internal medicine service 07/30. Patient seen and examined. States that headaches have slightly improved, feels that Topamax is working for him. Complaining of abdominal cramps, no n ausea or vomiting REVIEW OF SYSTEMS: CONSTITUTIONAL: No fever, no malaise,. CARDIOVASCULAR: No chest pain, no palpitations, no syncope. PULMONARY: No shortness of breath, no cough, GASTROINTESTINAL: As mentioned above NEUROLOGICAL: As mentioned above PHYSICAL EXAMINATION: GENERAL: The patient is alert and oriented x3, not in any acute distress. Well developed, well nourished. HEENT: Pupils are round and equally reacting to light. EOMI. No scleral icterus. No conjunctival pallor. Normocephalic, atraumatic. No pharyngeal erythema. No thyromegaly. CARDIOVASCULAR: S1 and S2 present. No murmurs, rubs, or gallops. PULMONARY: Chest is clear to auscultation, no wheezing or crackles. ABDOMEN: Soft, nontender, nondistended, normoactive bowel sounds. No palpable organomegaly. MUSCULOSKELETAL: No joint swelling or deformity. EXTREMITIES: No cyanosis, clubbing, or pedal edema. NEUROLOGICAL: Gross neurological examination did not reveal any focal deficits. SKIN: No rashes. 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 Continue same treatment. Continue with symptomatic treatment. Resume home medication. Monitor labs and vitals. DVT and GI prophylaxis. Further recommendations as per clinical course of the patient Dictation was produced using [employer]ik[employer] dictation software. please excuse any grammatical, word or spelling errors. Objective - Vital Signs Vital signs: Vital Signs Temp 98.3 F 07/30/24 07:00 Pulse 70 07/30/24 07:00 Resp 16 07/30/24 07:00 BP 123/77 07/30/24 07:00 Pulse Ox 99 07/30/24 07:00 FiO2 Intake & Output 07/29/24 07/30/24 07/30/24 18:59 06:59 18:59 Intake Total 118 Balance 118 Intake: Oral 118 Other: Voiding Method Toilet Urinal # Voids 2 1 - Labs CBC & Chem 7: 07/28/24 17:05 07/28/24 17:05
--- NOTE | 2024-07-30 13:27 | P.PN ---
Subjective Progress Note Date: 07/30/24 I am following up with the patient and patient headaches is drastically better. Denies any neurological issues. Denies any further nausea vomiting. Objective - Vital Signs Vital signs: Vital Signs Temp 98.3 F 07/30/24 07:00 Pulse 70 07/30/24 07:00 Resp 16 07/30/24 07:00 BP 123/77 07/30/24 07:00 Pulse Ox 99 07/30/24 07:00 FiO2 Intake & Output 07/29/24 07/30/24 07/30/24 18:59 06:59 18:59 Intake Total 118 Balance 118 Intake: Oral 118 Other: Voiding Method Toilet Urinal # Voids 2 1 - Exam General: Lying in bed and is not in acute distress. Neuro: The patient is awake alert oriented to self place and time. Is following simple commands. No aphasia. Visual redman are full to complication. Extraocular moods intact no nystagmus. No facial weakness. No dysarthria. Motor: The strength is 5 out of 5 throughout. Some of the workup during this hospital visit consisted of: I reviewed the lab workup. CT of the head is reported as no acute intracranial process. Stable appearance of the left-sided device. I personally reviewed the CT and I agree there is no acute or subacute process. - Labs CBC & Chem 7: 07/28/24 17:05 07/28/24 17:05 Assessment and Plan Assessment: This is a 48-year-old gentleman with a history of arachnoid cysts status post shunt and had revision in 2019, chronic headache and gets a severe headache once every 3 weeks that lingers and had extensive workup at [facility] and [facility] who presents to the emergency department because of cephalgia. Intracrable headache. Located over the left hemisphere. From limitation no focal deficit. Similar to his usual severe headache--today is drastically better and under control History of chronic headache. History of arachnoid cyst s/p shunt and revision last in 2019 History of seizure Plan: Patient is on Dilaudid as needed which helps with the headache. Patient is on Topamax 100mg bid which helps with migraine headaches as well as has benefit of antiseizure medication Recommend going back to his home Keppra 500mg bid. Patient acetazolamide 500 mg twice a day is resumed Will defer the rest of the medical management to the primary team. Upon discharge recommend the patient to follow-up with his appointment with [facility] neurology team. He has an appointment within 1.5 weeks and notified to keep his appointment. There is no further neurological work-up. Will sign off. Please reconsult if needed. Time with Patient: Less than 30
[2024-07-30] MEDS: ACETAMINOPHEN TAB 325 MG TAB PO PRN (20:41)
[2024-07-30] MEDS: IBUPROFEN 400 MG TAB PO PRN (20:41)
[2024-07-30] MEDS: levETIRAcetam 500 MG TAB PO SCH (20:42)
[2024-07-31 09:35] LABS: ALT 16 U/L (10-49); AST 13 U/L (14-35); Albumin 3.8 g/dL (3.8-4.9); Albumin/Globulin Ratio 1.52 Ratio (1.60-3.17); Alkaline Phosphatase 42 U/L (41-126); Blood Urea Nitrogen 16.4 mg/dL (9.0-27.0); Calcium 8.9 mg/dL (8.7-10.3); Carbon Dioxide 20.4 mmol/L (21.6-31.8); Chloride 108 mmol/L (96-109); Globulin 2.5 g/dL (1.6-3.3); Glucose 100 mg/dL (70-110); Potassium 3.6 mmol/L (3.5-5.5); Sodium 140 mmol/L (135-145); Total Bilirubin 0.7 mg/dL (0.3-1.2); Total Protein 6.3 g/dL (6.2-8.2)
[2024-07-31 09:37] LABS: Basophils # (A) 0.06 X 10*3/uL (0.00-0.10); Eosinophils # (A) 0.07 X 10*3/uL (0.04-0.35); Eosinophils % (A) 1.1 %; HCT 42.9 % (39.6-50.0); HGB 14.4 g/dL (13.0-17.0); Lymphocytes # (A) 1.74 X 10*3/uL (0.90-5.00); Lymphocytes % (A) 27.6 %; MCH 30.1 pg (27.0-32.0); MCHC 33.6 g/dL (32.0-37.0); MCV 89.7 FL (80.0-97.0); Monocytes # (A) 0.77 X 10*3/uL (0.20-1.00); Monocytes % (A) 12.2 %; NRBC Per 100 WBC 0 X 10*3/uL (0.00-0.01); Neutrophils # (A) 3.64 X 10*3/uL (1.80-7.70); Neutrophils % (A) 57.6 %; Platelet Count 187 X 10*3/uL (140-440); RBC 4.78 X 10*6/uL (4.40-5.60); RDW 13.2 % (11.5-14.5); WBC 6.31 X 10*3/uL (4.50-10.00)
[2024-07-31 15:16] VITALS: BP 116/67; PULSE 68; RESP 14; TEMP 98.3
--- NOTE | 2024-07-31 19:35 | P.DS ---
Providers Date of admission: 07/28/24 18:50 Expected date of discharge: 07/31/24 Attending physician: Teodora Mueller Consults: 07/28/24 19:10 Consult Physician Urgent Consulting Provider: Evangelist Alejandra Consult Reason/Comments: Intractable headache Do you want consulting provider notified?: Yes [facility] Course: 48-year-old gentleman with past medical history significant for arachnoid cyst, SLAG WHEELER shunt placement who presents to ER with complaint of headache. Patient said he was all right few hours prior to arrival when he started having headache which is located in the back and left side. Headache is constant, not associated with any any blurred vision. Patient complained of nausea and vomiting at this time. There is no complaint of weakness of any extremity. Patient denied any jerking movement of any extremity. Patient denies any fecal incontinence. Patient denies any light sensitivity, there is no complaint of fever or chills. Patient denies any recent trauma. Because of these headaches, patient came to the ER Initial lab work done in the ER showed WBC 9.91, hemoglobin 15, platelet count 189, sodium 144, potassium 3.1, BUN 13, creatinine 0.85, glucose 123, calcium 9.5, anything 2.1, bilirubin 0.6, AST 17, ALT 15, alk phos 65 CT head done showed no acute intracranial process Patient admitted to internal medicine service 07/30. Patient seen and examined. States that headaches have slightly improved, feels that Topamax is working for him. Complaining of abdominal cramps, no nausea or vomiting Migraine intractable headache History of SLAG WHEELER shunt Monitor vital signs Monitor CBC Monitor CMP Continue antiemetics Continue Topamax Continue pain management Neurology following, possible discharge in the morning Labs and medication were reviewed.. Continue same treatment. Continue with symptomatic treatment. Resume home medication. Monitor labs and vitals. DVT and GI prophylaxis. Further recommendations as per clinical course of the patient Patient plan to be discharged on Topamax; will follow-up with neurology at [facility] Plan - Discharge Summary New Discharge Prescriptions: New Topiramate [Topamax] 100 mg PO BID #60 tab Continue acetaZOLAMIDE [Diamox] 500 mg PO BID levETIRAcetam [Keppra] 500 mg PO Q12HR #60 tab Discharge Medication List acetaZOLAMIDE [Diamox] 500 mg PO BID 06/13/24 [History] levETIRAcetam [Keppra] 500 mg PO Q12HR #60 tab 06/15/24 [Rx] Topiramate [Topamax] 100 mg PO BID #60 tab 07/31/24 [Rx] Follow up Appointment(s)/Referral(s): Richi Haji MD [Primary Care Provider] - 1-2 days Patient Instructions/Handouts: Acute Headache (DC) Discharge Disposition: HOME SELF-CARE
== END 2024-07-31 15:33 | disposition home or self-care (01) ==
LOC: EC 15:42 → 1SOBS 18:50 → 6NMEDSUR 07-30 06:01
PROVIDERS: ADMIT Hospitalist; ATTEND Hospitalist
DX: G43.909 Migraine, unspecified, not intractable, without status migrainosus (principal); Z98.2 Presence of cerebrospinal fluid drainage device; E78.5 Hyperlipidemia, unspecified; K21.9 Gastro-esophageal reflux disease without esophagitis; Z86.69 Personal history of other diseases of the nervous system and sense organs; Z87.891 Personal history of nicotine dependence; Z79.899 Other long term (current) drug therapy
CPT/HCPCS: 96376 ×5; 96375 ×2; 96374; 99285; 36415; 80053 ×2; 83735; 85025 ×2; 70450; G0378 ×4; J1200; J0780; J1100; J2405 ×2; J1171 ×3; J1953 ×2; J1885 ×2; J2470 ×3

== ENCOUNTER 2024-09-02 12:05 | Emergency (ER) | payer OTHER ==
[2024-09-02 12:24] VITALS: RESP 18; TEMP 98.5
--- NOTE | 2024-09-02 12:43 | ED ---
General Adult HPI - General Chief complaint: Nausea/Vomiting/Diarrhea Stated complaint: Headache,Vomiting Time Seen by Provider: 09/02/24 12:28 Source: patient, RN notes reviewed, old records reviewed Mode of arrival: ambulatory Limitations: no limitations - History of Present Illness Initial comments: 48-year-old male with history of chronic headache, history of TOOTH POLISHER shunt. Patient presenting for evaluation of headache and nausea vomiting. Headache began yesterday. Patient states it is typical of his usual headaches with associated nausea and vomiting. Patient states he gets like this every several weeks. He is following at [facility] and states he has an upcoming appointment. Patient takes [place] at home for pain. He has had multiple episodes of vomiting yesterday but states that today the vomiting has significantly improved. No fever. - Related Data Home Medications Medication Instructions Recorded Confirmed acetaZOLAMIDE [Diamox] 500 mg PO BID 06/13/24 07/28/24 Previous Rx's Medication Instructions Recorded levETIRAcetam [Keppra] 500 mg PO Q12HR #60 tab 06/15/24 Topiramate [Topamax] 100 mg PO BID #60 tab 07/31/24 Ondansetron Odt [Zofran Odt] 4 mg PO Q8HR PRN #20 tab 09/03/24 Allergies Allergy/AdvReac Type Severity Reaction Status Date / Time No Known Allergies Allergy Verified 09/03/24 09:22 Review of Systems ROS Statement: Those systems with pertinent positive or pertinent negative responses have been documented in the HPI. ROS Other: All systems not noted in ROS Statement are negative. 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 spinal tap 12/25/2023 History of Any Multi-Drug Resistant Organisms: None Reported Past Surgical History: Orthopedic Surgery Additional Past Surgical History / Comment(s): brain shunt 2019, plate in left lower leg secondary to fracture Past Anesthesia/Blood Transfusion Reactions: No Reported Reaction, Motion Sickness Past Psychological History: No Psychological Hx Reported Smoking Status: Former smoker Past Alcohol Use History: None Reported Past Drug Use History: Marijuana - Past Family History Father Additional Family Medical History / Comment(s): heart issues, neck and back issues General Exam Limitations: no limitations General appearance: alert, in no apparent distress Head exam: Present: atraumatic, normocephalic Eye exam: Present: normal appearance, PERRL Neck exam: Present: normal inspection. Absent: tenderness, meningismus Respiratory exam: Present: normal lung sounds bilaterally. Absent: respiratory distress, wheezes, rales Cardiovascular Exam: Present: regular rate, normal rhythm GI/Abdominal exam: Present: soft. Absent: distended, tenderness, guarding Extremities exam: Present: normal inspection, normal capillary refill. Absent: pedal edema Neurological exam: Present: alert, oriented X3, CN II-XII intact. Absent: motor sensory deficit Skin exam: Present: warm, dry, intact Course Vital Signs 09/02/24 09/02/24 12:19 13:49 Temperature 98.5 F Pulse Rate 76 72 Respiratory 18 18 Rate Blood Pressure 116/78 112/74 O2 Sat by Pulse 98 99 Oximetry Medical Decision Making - Medical Decision Making Was pt. sent in by a medical professional or institution (Dr. PA, GRAVEL TRUCK DRIVER, urgent care, hospital, or shelter...) When possible be specific @ -No Did you speak to anyone other than the patient for history (EMS, parent, family, police, friend...)? What history was obtained from this source @ -No Did you review nursing and triage notes (agree or disagree)? Why? @ -I reviewed and agree with nursing and triage notes Were old charts reviewed (outside hosp., previous admission, EMS record, old EKG, old radiological studies, urgent care reports/EKG's, shelter records)? Report findings @ -No old charts were reviewed Differential Headache: Migraine, tension, cluster, carbon monoxide, central venous thrombosis, pension karma temporal arteritis, acute closure glaucoma, intercranial hemorrhage, mastoiditis, sinusitis, head injury, this is not meant to be an all-inclusive list. EKG interpreted by me (3pts min.). @ -As above X-rays interpreted by me (1pt min.). @ -None done CT interpreted by me (1pt min.). @ -None done U/S interpreted by me (1pt. min.). @ -None done What testing was considered but not performed or refused? (CT, X-rays, U/S, labs)? Why? @ -None What meds were considered but not given or refused? Why? @ -None Did you discuss the management of the patient with other professionals (professionals i.e. , PA, GRAVEL TRUCK DRIVER, lab, RT, psych nurse, social problems specialist, railroad dining car stewardess, teacher, global chief experience officer, caseworker protective services)? Give summary @ -No Was smoking cessation discussed for >3mins.? @ -No Was critical care preformed (if so, how long)? @ -No Were there social determinants of health that impacted care today? How? (Homelessness, low income, unemployed, alcoholism, drug addiction, transportation, low edu. Level, literacy, decrease access to med. care, fdc, rehab)? @ -No Was there de-escalation of care discussed even if they declined (Discuss DNR or withdrawal of care, Hospice)? DNR status @ -No What co-morbidities impacted this encounter? (DM, HTN, Smoking, COPD, CAD, Cancer, CVA, ARF, Chemo, Hep., AIDS, mental health diagnosis, sleep apnea, morbid obesity)? @Chronic headache, history of TOOTH POLISHER shunt Was patient admitted / discharged? Hospital course, mention meds given and route, prescriptions, significant lab abnormalities, going to OR and other pertinent info. @ -48-year-old male with recurrent chronic headache similar in character to chronic headaches. Patient is following at the [facility] both with ophthalmology and neurology and neurosurgery. Patient has an appointment coming up. He is well-appearing with stable vitals. I did provide symptomatic treatment with improvement in symptoms including resolution of vomiting and significantly improved headache. Patient is given return parameters and instructed to continue to follow-up with [facility]. Undiagnosed new problem with uncertain prognosis? @ -No Drug Therapy requiring intensive monitoring for toxicity (Heparin, Nitro, Insulin, Cardizem)? @ -No Were any procedures done? @ -No Diagnosis/symptom? @ -Chronic headache Acute, or Chronic, or Acute on Chronic? @ -Chronic Uncomplicated (without systemic symptoms) or Complicated (systemic symptoms)? @ -Default Side effects of treatment? @ -No Exacerbation, Progression, or Severe Exacerbation? @ -No Poses a threat to life or bodily function? How? (Chest pain, [place], [place], pneumonia, PE, COPD, DKA, ARF, appy, cholecystitis, CVA, Diverticulitis, Homicidal, Suicidal, threat to staff... and all critical care pts) @ -No - Lab Data Result diagrams: 09/02/24 12:50 09/02/24 12:50 Lab Results 09/02/24 09/02/24 Range/Units 12:50 12:50 WBC 16.55 H (4.50-10.00) 10*3/uL RBC 5.19 (4.40-5.60) 10*6/uL Hgb 15.9 (13.0-17.0) g/dL Hct 44.9 (39.6-50.0) % MCV 86.5 (80.0-97.0) fL MCH 30.6 (27.0-32.0) pg MCHC 35.4 (32.0-37.0) g/dL Plt Count 222 (140-440) 10*3/uL MPV 10.8 (9.5-12.2) fL Immature Gran % (Auto) 0.3 % Neutrophils % 88.0 % Lymphocytes % 5.3 % Monocytes % 6.2 % Eosinophils % 0.0 % Basophils % 0.2 % Immature Gran # 0.05 H (0.00-0.04) 10*3/uL Neutrophils # 14.57 H (1.80-7.70) 10*3/uL Lymphocytes # 0.88 L (0.90-5.00) 10*3/uL Monocytes # 1.02 H (0.20-1.00) 10*3/uL Eosinophils # 0.00 L (0.04-0.35) 10*3/uL Basophils # 0.03 (0.00-0.10) 10*3/uL Sodium 134 L (137-145) mmol/L Potassium 3.8 (3.5-5.1) mmol/L Chloride 98 (98-107) mmol/L Carbon Dioxide 19 L (22-30) mmol/L Anion Gap 17 mmol/L BUN 10 (9-20) mg/dL Creatinine 0.60 L (0.66-1.25) mg/dL Est GFR (CKD-EPI)AfAm >90 (>60 ml/min/1.73 sqM) Est GFR (CKD-EPI)NonAf >90 (>60 ml/min/1.73 sqM) Glucose 133 H (74-99) mg/dL Calcium 9.9 (8.4-10.2) mg/dL Total Bilirubin 1.7 H (0.2-1.3) mg/dL AST 18 (17-59) U/L ALT 14 (4-49) U/L Alkaline Phosphatase 55 (38-126) U/L Total Protein 8.0 (6.3-8.2) g/dL Albumin 4.8 (3.5-5.0) g/dL Disposition Clinical Impression: Headache Disposition: HOME SELF-CARE Condition: Fair Instructions (If sedation given, give patient instructions): Acute Headache (ED) Additional Instructions: Please continue to follow at the [facility]. Return to the emergency department with worsening or changing symptoms. Is patient prescribed a controlled substance at d/c from ED?: No Referrals: Richi Haji MD [Primary Care Provider] - 1-2 days Time of Disposition: 13:36
[2024-09-02 13:08] LABS: Basophils # (A) 0.03 10*3/uL (0.00-0.10); Basophils % (A) 0.2 %; Eosinophils # (A) 0.00 10*3/uL (0.04-0.35); Eosinophils % (A) 0.0 %; HCT 44.9 % (39.6-50.0); HGB 15.9 g/dL (13.0-17.0); Lymphocytes # (A) 0.88 10*3/uL (0.90-5.00); Lymphocytes % (A) 5.3 %; MCH 30.6 pg (27.0-32.0); MCHC 35.4 g/dL (32.0-37.0); MCV 86.5 fL (80.0-97.0); Monocytes # (A) 1.02 10*3/uL (0.20-1.00); Monocytes % (A) 6.2 %; Neutrophils # (A) 14.57 10*3/uL (1.80-7.70); Neutrophils % (A) 88.0 %; Platelet Count 222 10*3/uL (140-440); RBC 5.19 10*6/uL (4.40-5.60); RDW 11.8 % (11.5-14.5); WBC 16.55 10*3/uL (4.50-10.00)
[2024-09-02] MEDS: SODIUM CHLORIDE 0.9% 500 ML 500 ML IV ONE (13:14)
[2024-09-02] MEDS: diphenhydrAMINE 50 MG/ML 1 ML VIAL IVP STA (13:15)
[2024-09-02] MEDS: HYDROmorphone 1 MG/ML 1 ML SYRINGE IVP STA (13:15)
[2024-09-02] MEDS: METOCLOPRAMIDE 5 MG/ML 2 ML VIAL IVP STA (13:15)
[2024-09-02 13:20] LABS: Glucose 133 mg/dL (74-99); Potassium 3.8 mmol/L (3.5-5.1); Sodium 134 mmol/L (137-145)
[2024-09-02 13:21] LABS: ALT 14 U/L (4-49); AST 18 U/L (17-59); African American GFR (CKD) >90 (>60 ml/min/1.73 sqM); Albumin 4.8 g/dL (3.5-5.0); Alkaline Phosphatase 55 U/L (38-126); Anion Gap 17 mmol/L; Blood Urea Nitrogen 10 mg/dL (9-20); Calcium 9.9 mg/dL (8.4-10.2); Carbon Dioxide 19 mmol/L (22-30); Chloride 98 mmol/L (98-107); Non-African American GFR(CKD) >90 (>60 ml/min/1.73 sqM); Total Protein 8.0 g/dL (6.3-8.2)
[2024-09-02 13:50] VITALS: BP 112/74; PULSE 72
== END 2024-09-02 14:08 | disposition home or self-care (01) ==
LOC: EC 12:05
DX: R51.9 Headache, unspecified (principal); Z87.891 Personal history of nicotine dependence; Z98.2 Presence of cerebrospinal fluid drainage device
CPT/HCPCS: 36415; 80053; 85025; 99284; 96361; 96374; 96375; J1200; J2765; J1171

== ENCOUNTER 2024-09-03 09:12 | Emergency (ER) | payer OTHER ==
[2024-09-03 09:22] VITALS: TEMP 97.7
--- NOTE | 2024-09-03 09:35 | ED ---
Seizure HPI - General Chief Complaint: Seizure Stated Complaint: seizure Time Seen by Provider: 09/03/24 09:22 Source: patient, EMS, RN notes reviewed Mode of arrival: EMS Limitations: no limitations - History of Present Illness Initial Comments: This is a 48-year-old male who presents to the emergency department for a seizure. Patient has a history of an arachnoid cyst with a FINAL ASSEMBLER shunt as well as a history of seizures. States that he had a tonic-clonic seizure this morning. This was witnessed by his father, however he is unsure how long it lasted. Prior to this his last seizure was a couple of months ago. States that he usually has them every few months. Currently follows with neurology at the [facility]. On initial conversation with patient, he states that he has not taken his Keppra or Topamax in several weeks. When he was more alert, he advised that he did miss a couple of doses but took it today. Currently complaining of a headache, as he does have a history of chronic headaches as well. Also reports some nausea but no vomiting. He had initially denied hitting his head or sustaining any injuries during the seizure. However, when family later arrived they advised that he hit his head on the fridge. MD Complaint: seizure - Related Data Home Medications Medication Instructions Recorded Confirmed acetaZOLAMIDE [Diamox] 500 mg PO BID 06/13/24 07/28/24 Previous Rx's Medication Instructions Recorded levETIRAcetam [Keppra] 500 mg PO Q12HR #60 tab 06/15/24 Topiramate [Topamax] 100 mg PO BID #60 tab 07/31/24 Ondansetron Odt [Zofran Odt] 4 mg PO Q8HR PRN #20 tab 09/03/24 Allergies Allergy/AdvReac Type Severity Reaction Status Date / Time No Known Allergies Allergy Verified 09/03/24 09:22 Review of Systems ROS Statement: Those systems with pertinent positive or pertinent negative responses have been documented in the HPI. ROS Other: All systems not noted in ROS Statement are negative. 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 spinal tap 12/25/2023 History of Any Multi-Drug Resistant Organisms: None Reported Past Surgical History: Orthopedic Surgery Additional Past Surgical History / Comment(s): brain shunt 2019, plate in left lower leg secondary to fracture Past Anesthesia/Blood Transfusion Reactions: No Reported Reaction, Motion Sickness Past Psychological History: No Psychological Hx Reported Smoking Status: Former smoker Past Alcohol Use History: None Reported Past Drug Use History: Marijuana - Past Family History Father Additional Family Medical History / Comment(s): heart issues, neck and back issues General Exam Limitations: no limitations General appearance: alert, in no apparent distress Head exam: Present: atraumatic, normocephalic, normal inspection Respiratory exam: Present: normal lung sounds bilaterally. Absent: respiratory distress, wheezes, rales, rhonchi, stridor Cardiovascular Exam: Present: regular rate, normal rhythm GI/Abdominal exam: Present: soft. Absent: distended, tenderness Neurological exam: Present: alert, oriented X3, CN II-XII intact Psychiatric exam: Present: normal affect, normal mood Skin exam: Present: warm, dry, intact, normal color. Absent: rash Course Vital Signs 09/03/24 09/03/24 09/03/24 09:17 10:30 12:00 Temperature 97.7 F Pulse Rate 82 50 L 84 Respiratory 18 18 16 Rate Blood Pressure 138/110 105/67 124/79 O2 Sat by Pulse 100 100 97 Oximetry 09/03/24 14:04 Temperature Pulse Rate 91 Respiratory 16 Rate Blood Pressure 114/70 O2 Sat by Pulse 99 Oximetry Medical Decision Making - Medical Decision Making This is a 48-year-old male who presents to the emergency department for a seizure. Was pt. sent in by a medical professional or institution? @ -No Did you speak to anyone other than the patient for history? @ -No Did you review nursing and triage notes? @ -Yes, and I agree, it is accurate with regards to the patient's symptoms. Were old charts reviewed? @ -No Differential Diagnosis? @ -Differential Seizure: Recurrent seizure disorder, febrile seizure, alcohol withdrawal, stimulants, meningitis, encephalitis, intercranial hemorrhage, intracranial tumor, stroke, eclampsia, thyrotoxicosis, hypocalcemia, hyponatremia, hypernatremia, hypomagnesemia, psychogenic, this is not meant to be an all-inclusive list. EKG interpreted by me (3pts min.)? @ -EKG interpreted by me demonstrating the following: Sinus rhythm. Ventricular rate 85 bpm, NC interval 108 ms, QRS duration 101 ms, QTc 429 ms. X-rays interpreted by me (1pt min.)? @ -Not obtained CT interpreted by me (1pt min.)? @ -Computed tomography scan of the brain and c-spine obtained. My interpretation identifies no evidence of an acute intracranial hemorrhage, skull fracture, or cervical spine fracture. U/S interpreted by me (1pt. min.)? @ -Not obtained What testing was considered but not performed? (CT, X-rays, U/S, labs)? Why? @ -None What meds were considered but not given? Why? @ -None Did you discuss the management of the patient with other professionals? @ -No Did you reconcile home meds? @ -No Was smoking cessation discussed for >3mins.? @ -No Was critical care preformed (if so, how long)? @ -No Were there social determinants of health that impacted care today? How? (Homelessness, low income, unemployed, alcoholism, drug addiction, transportation, low edu. Level, literacy, decrease access to med. care, nursing home, rehab)? @ -No Was there de-escalation of care discussed even if they declined? (Discuss DNR or withdrawal of care, Hospice)? @ -No What co-morbidities impacted this encounter? (DM, HTN, Smoking, COPD, CAD, Cancer, CVA, Hep., AIDS, mental health diagnosis, sleep apnea, morbid obesity)? @ -Arachnoid cyst with FINAL ASSEMBLER shunt, seizure disorder Was patient admitted / discharged? @ -Discharged. Lab work demonstrates leukocytosis, similar to the value from yesterday. Lab work otherwise unremarkable. Alcohol level negative. There was concern that the patient was bradycardic when he arrived, however he had just been given fentanyl and Versed from EMS en route. After resting and being treated with IV fluids, his heart rate improved. The seizure may have been related to several missed medication doses. He was given a dose of Keppra IV in the emergency department. Headache was also managed in the emergency department. At the time I was going to discharge the patient, family arrived and advised that he did hit his head during the seizure. We then obtained a CT scan of the brain and C-spine which was unremarkable. Patient then discharged home in stable condition and advised to follow-up with his PCP and neurologist. Zofran prescribed for any additional nausea. Case discussed with ED attending Dr. Noonan. Return precautions reviewed in depth, the patient is instructed to return to the emergency department with any new, worsening, or concerning symptoms. Patient verbalized understanding. Undiagnosed new problem with uncertain prognosis? @ -None Drug Therapy requiring intensive monitoring for toxicity (Heparin, Nitro, Insulin, Cardizem)? @ -None Were any procedures done? @ -None Diagnosis/symptom? @ -Generalized seizure Acute, or Chronic, or Acute on Chronic? @ -Acute Uncomplicated (without systemic symptoms) or Complicated (systemic symptoms)? @ -Uncomplicated Side effects of treatment? @ -None Exacerbation, Progression, or Severe Exacerbation] @ -Not applicable Poses a threat to life or bodily function? @ -No - Lab Data Result diagrams: 09/03/24 09:54 09/03/24 09:54 Lab Results 09/03/24 09/03/24 09/03/24 Range/Units 09:54 09:54 11:19 WBC 16.06 H (4.50-10.00) 10*3/uL RBC 4.56 (4.40-5.60) 10*6/uL Hgb 14.0 (13.0-17.0) g/dL Hct 40.7 (39.6-50.0) % MCV 89.3 (80.0-97.0) fL MCH 30.7 (27.0-32.0) pg MCHC 34.4 (32.0-37.0) g/dL Plt Count 163 (140-440) 10*3/uL MPV 10.9 (9.5-12.2) fL Immature Gran % (Auto) 0.4 % Neutrophils % 90.0 % Lymphocytes % 4.3 % Monocytes % 5.1 % Eosinophils % 0.0 % Basophils % 0.2 % Immature Gran # 0.06 H (0.00-0.04) 10*3/uL Neutrophils # 14.46 H (1.80-7.70) 10*3/uL Lymphocytes # 0.69 L (0.90-5.00) 10*3/uL Monocytes # 0.82 (0.20-1.00) 10*3/uL Eosinophils # 0.00 L (0.04-0.35) 10*3/uL Basophils # 0.03 (0.00-0.10) 10*3/uL Sodium 135 L (137-145) mmol/L Potassium 3.6 (3.5-5.1) mmol/L Chloride 105 (98-107) mmol/L Carbon Dioxide 17 L (22-30) mmol/L Anion Gap 13 mmol/L BUN 10 (9-20) mg/dL Creatinine 0.56 L (0.66-1.25) mg/dL Est GFR (CKD-EPI)AfAm >90 (>60 ml/min/1.73 sqM) Est GFR (CKD-EPI)NonAf >90 (>60 ml/min/1.73 sqM) Glucose 125 H (74-99) mg/dL Calcium 8.8 (8.4-10.2) mg/dL Magnesium 1.7 (1.6-2.3) mg/dL Total Bilirubin 1.2 (0.2-1.3) mg/dL AST 23 (17-59) U/L ALT 13 (4-49) U/L Alkaline Phosphatase 47 (38-126) U/L Total Protein 6.6 (6.3-8.2) g/dL Albumin 3.8 (3.5-5.0) g/dL Urine Opiates Screen Detected H (NotDetected) Ur Oxycodone Screen Not Detected (NotDetected) Urine Methadone Screen Not Detected (NotDetected) Ur Barbiturates Screen Not Detected (NotDetected) U Tricyclic Antidepress Not Detected (NotDetected) Ur Phencyclidine Scrn Not Detected (NotDetected) Ur Amphetamines Screen Not Detected (NotDetected) U Methamphetamines Scrn Not Detected (NotDetected) U Benzodiazepines Scrn Not Detected (NotDetected) Urine Cocaine Screen Not Detected (NotDetected) U Marijuana (THC) Screen Detected H (NotDetected) Serum Alcohol <10 mg/dL - Radiology Data Radiology results: report reviewed, image reviewed Disposition Clinical Impression: Generalized seizure Disposition: HOME SELF-CARE Instructions (If sedation given, give patient instructions): Seizure/Epilepsy Discharge Instructions & Follow-Up Additional Instructions: Return to the emergency department with any new, worsening, or concerning symptoms. Make sure you continue taking your antiseizure medication as prescribed. You can take the Zofran up to every 8 hours as needed for nausea and vomiting. Follow up with your primary care provider in 1-2 days. Prescriptions: Ondansetron Odt [Zofran Odt] 4 mg PO Q8HR PRN #20 tab PRN Reason: Nausea And Vomiting Is patient prescribed a controlled substance at d/c from ED?: No Referrals: Richi Haji MD [Primary Care Provider] - 1-2 days Time of Disposition: 13:50
[2024-09-03] MEDS: ONDANSETRON 4 MG/2 ML VIAL IVP STA (09:38)
[2024-09-03] MEDS: SODIUM CHLORIDE 0.9% 500 ML IV STA (09:40)
[2024-09-03] MEDS: KETOROLAC 15 MG/ML 1 ML VIAL IVP STA ×2 (09:42→13:17)
[2024-09-03] MEDS: HYDROmorphone 1 MG/ML 1 ML SYRINGE IVP STA ×2 (09:43→13:18)
[2024-09-03] MEDS: levETIRAcetam IV 500 MG/5 ML VIAL IVP STA (09:44)
[2024-09-03] MEDS: SODIUM CHLORIDE 0.9% 1,000 ML IV STA (09:50)
[2024-09-03 10:04] LABS: Basophils # (A) 0.03 10*3/uL (0.00-0.10); Basophils % (A) 0.2 %; Eosinophils # (A) 0.00 10*3/uL (0.04-0.35); Eosinophils % (A) 0.0 %; HCT 40.7 % (39.6-50.0); HGB 14.0 g/dL (13.0-17.0); Lymphocytes # (A) 0.69 10*3/uL (0.90-5.00); Lymphocytes % (A) 4.3 %; MCH 30.7 pg (27.0-32.0); MCHC 34.4 g/dL (32.0-37.0); MCV 89.3 fL (80.0-97.0); Monocytes # (A) 0.82 10*3/uL (0.20-1.00); Monocytes % (A) 5.1 %; Neutrophils # (A) 14.46 10*3/uL (1.80-7.70); Neutrophils % (A) 90.0 %; Platelet Count 163 10*3/uL (140-440); RBC 4.56 10*6/uL (4.40-5.60); RDW 11.9 % (11.5-14.5); WBC 16.06 10*3/uL (4.50-10.00)
[2024-09-03 11:20] LABS: ALT 13 U/L (4-49); African American GFR (CKD) >90 (>60 ml/min/1.73 sqM); Albumin 3.8 g/dL (3.5-5.0); Anion Gap 13 mmol/L; Blood Urea Nitrogen 10 mg/dL (9-20); Calcium 8.8 mg/dL (8.4-10.2); Carbon Dioxide 17 mmol/L (22-30); Chloride 105 mmol/L (98-107); Glucose 125 mg/dL (74-99); Non-African American GFR(CKD) >90 (>60 ml/min/1.73 sqM); Sodium 135 mmol/L (137-145); Total Protein 6.6 g/dL (6.3-8.2)
[2024-09-03 11:21] LABS: AST 23 U/L (17-59); Magnesium 1.7 mg/dL (1.6-2.3); Potassium 3.6 mmol/L (3.5-5.1)
[2024-09-03 11:22] LABS: Alkaline Phosphatase 47 U/L (38-126)
[2024-09-03 12:22] VITALS: RESP 16
[2024-09-03 12:46] LABS: Urn Cannabinoid Scrn Detected (NotDetected)
[2024-09-03 12:47] LABS: Barbiturate Screen,Urine Not Detected (NotDetected); Benzodiazepines Screen,Urine Not Detected (NotDetected); Opiate Screen,Urine Detected (NotDetected); Oxycodone Screen, Urine Not Detected (NotDetected); Phencyclidine Screen,Urine Not Detected (NotDetected); Tricyclic Antidepressant,Urine Not Detected (NotDetected)
--- NOTE | 2024-09-03 13:45 | CT ---
EXAMINATION TYPE: CT brain suellen wo con DATE OF EXAM: 09/03/2024 1:20 PM COMPARISON: None. CLINICAL INDICATION: Male, 48 years old with history of Head injury, seizures, pain TECHNIQUE: CT of the brain is performed utilizing 3 mm thick sections through the posterior fossa and 3 mm thick sections through the remaining calvarium. Study is performed within 24 hours of arrival to the hospital. Contrast used: mL of , (none if empty) CT DLP: 1444.4 mGycm, Automated exposure control for dose reduction was used. FINDINGS: No abnormal hyperdensity is present to suggest an acute intracranial hemorrhage. No mass lesion is evident. No acute infarcts are evident. Ventricles and sulci are appropriate for the patient age. There is stable appearance of a left anterior middle cranial fossa shunt catheter. No enlarging space is evident. Paranasal sinuses and mastoid air cells within the [id number] are clear. IMPRESSIONS: 1. No acute intracranial process. Follow-up MRI can be performed as clinically indicated. 2. Stable appearance left middle cranial fossa shunt CT cervical spine. COMPARISON: None TECHNIQUE: CT of the cervical spine is performed in the axial plane at 2 mm thick sections. Reconstr ucted images in the coronal, and sagittal plane are reviewed on the computer. FINDINGS: No acute fractures are evident. Vertebral body alignment is normal. There is narrowing of disc height throughout the cervical spine. This appears to be greatest at C5-6. Vertebral body heights are preserved. No spinal canal stenosis is evident. Mild foraminal narrowing from uncovertebral joint hypertrophy is present within the cervical spine IMPRESSION: 1. No acute osseous abnormality cervical spine. 2. Mild degenerative disc changes and mild foraminal narrowing [facility], , 09/03/2024 1:43 PM
[2024-09-03] MEDS: ONDANSETRON 4 MG ODT STARTER PACK 2 TAB BTL PO STA (14:00)
[2024-09-03 14:06] VITALS: BP 114/70; PULSE 91
== END 2024-09-03 14:15 | disposition home or self-care (01) ==
LOC: EC 09:12
DX: G40.909 Epilepsy, unspecified, not intractable, without status epilepticus (principal); G93.0 Cerebral cysts; Z98.2 Presence of cerebrospinal fluid drainage device; Z87.891 Personal history of nicotine dependence
CPT/HCPCS: 36415; 93005; 80053; 83735; 85025; 80306; 72125; 70450; 99284; 96374; 96375; 96376; 96361; G0480; J2405; J1171; J1953; J1885; S0119; 80320